=== PATIENT | female | born 1935 | race Caucasian/White ===

== ENCOUNTER 2016-12-05 11:18 | Inpatient (IN) | payer OTHER, BC ==
[~2016-12-05] VITALS: Ht 177.8 cm; Wt 67.6 kg
[~2016-12-05 11:18] MED LIST: ASPIRIN81 M1 PO; CIPRO500 MG PO; COREG3.125 MG PO; FLORASTOR250 MG PO; LIPITOR40 MG PO; MULTIVITAMIN1 TA1 PO; PLAVIX75 MG PO; ROCEPHIN 11000 MG/50 IV; ULTRAM50 MG
--- NOTE | 2016-12-05 11:18 | NUR ---
Pt BIBA to bed 7 at this time.
--- NOTE | 2016-12-05 11:20 | NUR ---
Patient being evaluated at bedside by Dr. Deluna at this time.
[2016-12-05 11:23] VITALS: BP 147/82
--- NOTE | 2016-12-05 11:33 | NUR ---
Pt taken for CT via [facility] at this time.
--- NOTE | 2016-12-05 11:38 | NUR ---
81 YO FEMALE BIBA FROM [facility], FOR ALTERED LOC AND FOUL SMELLING URINE. DENIES N/V/D; SKIN IS PINK/WARM/DRY; AAOX3-4, PERIODS OF FORGETFULNESS/CONFUSION; DIMINISHED BREATHSOUNDS TO BILATERAL BASES; HR EVEN AND REGULAR; PT DENIES ANY FEVER, CP, SOB, OR COUGH AT THIS TIME; PATIENT DENIES PAIN AT THIS TIME; VSS; PATIENT POSITIONED FOR COMFORT; HOB ELEVATED; BEDRAILS UP X2; BED DOWN. ER MD MADE AWARE OF PT STATUS.
[2016-12-05] MEDS ORDERED: NACL 0.9% 1,000 ML IV ONE (11:55)
--- NOTE | 2016-12-05 13:00 | NUR ---
16FR TAYLOR CATH INSERTED, PT TOLERATED WELL. 150CC DARK RED URINE DRAINED. ER MADE AWARE.
[2016-12-05] MEDS ORDERED: cefTRIAXone 1,000 MG VIAL ONE (13:32)
--- NOTE | 2016-12-05 14:24 | NUR ---
Patient will be admitted to care of DR SU. Admited to MS. Will go to [id number]. Belongings list completed. Report to CHEMA BELL.
[2016-12-05 15:00] VITALS: BP 116/66
--- NOTE | 2016-12-05 15:00 | NUR ---
ADMITTED 81 YEAR OLD FEMALE FROM ER VIA GURNEY WITH A DIAGNOSIS OF URINARY TRACT INFECTION, PT IS AAO X3 WITH FORGETFULNESS WITH DELAYED RESPONSE, ABLE TO FOLLOW SIMPLE COMMANDS, BLANCHABLE REDNESS ON SACRAL AREA OTHERWISE SKIN INTACT, VITALS STABLE, NO S/S OF RESPIRATORY DISTRESS OR DISCOMFORT NOTED, IV ON LEFT AC PATENT AND INTACT INFUSING FLUID WELL, TAYLOR CATHETER IN PLACE, ORIENTED PT IN THE ROOM AND USE OF CALL LIGHT, SAFETY/FALL/PRESSURE PRECAUTION ENFORCED, CALL LIGHT WITHIN REACH, WILL CONTINUE TO MONITOR.
--- NOTE | 2016-12-05 15:50 | NUR ---
WOUND CARE NURSE IS AT BEDSIDE EVALUATING THE PT.
[2016-12-05 16:00] VITALS: BP 106/58
--- NOTE | 2016-12-05 16:00 | NUR ---
WOUND CARE EVALUATION NOTES: REASON FOR EVALUATION: BLANCHABLE REDNESS SACRALCOCCYX COMPLETE SKIN ASSESSMENT DONE ON THIS 81 Y/O FEMALE PATIENT FROM [facility], WITH INITIAL DIAGNOSIS OF URINARY TRACT INFECTION. PAST MEDICAL HISTORY INCLUDE CVA WITH RIGHT SIDED WEAKNESS, HYPERTENSION AND CAD. ALL ABOVE INFORMATION WAS OBTAINED FROM THE ADMISSION H&P. LABS INCLUDE WBC 10.8, H/H 12.5/39, GLUCOSE 117, ALBUMIN 3.3, PT/INR 10.9/1.2, PTT 29.9. PATIENT IS AWAKE AND ABLE TO FOLLOW SIMPLE COMMAND. SKIN WARM TO TOUCH WNL, TOENAILS ARE DISCOLORED, NO EDEMA, NO HAIR GROWTH AND +2 BILATERAL PEDAL PULSES. URINE AND BOWEL INCONTINENT. NEEDS ASSISTANCE IN TURNING. INITIAL PLAN OF CARE AND PRESSURE PREVENTIVE MEASURES DISCUSSED, UNABLE TO VERBALIZE UNDERSTANDING. INTEGUMENTARY: LEFT UPPER BUTTOCK - ST II - 100% BROWN SCAB PERIAREA - RED AND MOIST DUE TO URINE AND BOWEL INCONTINENCE. RECOMMENDATIONS: -CLEANSE SACRALCOCCYX, PERIAREA AND LEFT BUTTOCK WITH MILD SOAP AND WATER, PAT DRY, APPLY Z GUARD BIDWC AND PRN WITH SOILING. LEAVE OPEN TO AIR -PAINT RIGHT HEEL WITH SKIN PREP WIPES BIDWC AND LEAVE OPEN TO AIR -TURN AND REPOSITION PATIENT Q2H TO LEFT AND RIGHT SIDE ONLY TO OFFLOAD SACRALCOCCYX -ASSESS AND MONITOR SKIN CONDITION DURING POSITION CHANGE, PLEASE PAY PARTICULAR ATTENTION TO SACRALCOCCYX, ELBOWS, EARS AND HEELS -OFFLOAD BILATERAL HEELS BY PLACING PILLOWS UNDER CALVES AT ALL TIMES, UNLESS OTHERWISE CONTRAINDICATED -PRESSURE REDITRIBUTION SURFACE THERAPY -KEEP SKIN CLEAN AND DRY AT ALL TIMES. RECOMMENDATIONS DISCUSSED WITH PRIMARY RN. WILL FOLLOW UP PATIENT Q 7H AND PRN. PLEASE CONTACT [facility] FOR ANY CONCERNS, QUESTIONS AND CHANGES IN SKIN CONDITION.
[2016-12-05] MEDS ORDERED: LORazepam 2 MG/ML VIAL IVP PRN (16:05)
[2016-12-05] MEDS ORDERED: ACETAMINOPHEN 325 MG TAB PO PRN (16:05)
[2016-12-05] MEDS ORDERED: ONDANSETRON 4 MG/2 ML VIAL IVP PRN (16:05)
[2016-12-05] MEDS ORDERED: Z-GUARD PASTE TP PRN (16:25)
[2016-12-05] MEDS: DEXT 5% /NACL 0.9% 1,000 ML IV SCH (16:58)
--- NOTE | 2016-12-05 17:38 | NUR ---
FAMILY MEMBERS AT BEDSIDE, UPDATED PT CURRENT CONDITION, QUESTIONS ANSWERED. ALL NEEDS TEND TO PT AT THIS TIME, NO S/S OF RESPIRATORY DISTRESS OR DISCOMFORT NOTED, CALL LIGHT WITHIN REACH, WILL CONTINUE TO MONITOR.
--- NOTE | 2016-12-05 18:15 | NUR ---
TRANSFERRED PT TO WOUND CARE BED.
--- NOTE | 2016-12-05 19:04 | NUR ---
ENDORSED PT TO ARABELLA ABRAMS FOR CONTINUITY OF CARE. PT IS STABLE AT THIS TIME.
--- NOTE | 2016-12-05 19:10 | NUR ---
RECEIVED FROM AM RN IN BED. 81 YEAR OLD FEMALE DX. OF UTI AND RESIDING IN [facility]. AFEBRILE. CALL LIGHT WITH IN REACH. NO SOB. NO RESTLESSNESS NOTED. NEEDS WILL BE ANTICIPATED AND MET. TAYLOR CATHETER IN PLACE WITH URINE DRAINING WELL. IVF SITE TO LAC#20 INTACT AND NO INFILTRATION NOTED.
[2016-12-05 20:32] VITALS: BP 102/64
[2016-12-05] MEDS: ATORVASTATIN 20 MG TAB PO SCH (20:36)
[2016-12-05] MEDS: CARVEDILOL 3.125 MG TAB PO SCH (20:36)
--- NOTE | 2016-12-05 22:00 | NUR ---
PT. TURNED TO SIDES Q 2H. TOTAL CARE. AFEBRILE. NO RESTLESSNESS NOTED. DX. UTI . TAYLOR CATHETER DRAINING WELL WITH DARK URINE. AFEBRILE.
--- NOTE | 2016-12-06 00:13 | NUR ---
PT. TURNED . AWAKE AND ALERT AT THIS TIME. SAYS WORDS THAT ARE NOT UNDERSTOOD. NEEDS ANTICIPATED AND MET. IVF SITE CHECKED. WITH GOOD BLOOD RETURN.
[2016-12-06 00:16] VITALS: BP 99/58
[2016-12-06] MEDS: Z-GUARD PASTE TP SCH ×2 (01:36→13:00)
[2016-12-06] MEDS: DEXT 5% /NACL 0.9% 1,000 ML IV SCH ×3 (02:05→21:55)
--- NOTE | 2016-12-06 03:37 | NUR ---
PT. AT THIS TIME SLEEPING . NO RESTLESSNESS. CALL LIGHT WITH IN REACH. NEEDS ANTICIPATED AND WILL BE MET. TURNED TO SIDES Q 2H AND WITH PILLOW SUPPORT TO PRESSURE AREAS.
--- NOTE | 2016-12-06 06:12 | NUR ---
PT. SLEEPING WELL. NO SOB. FLACC 0-. TAYLOR CATHETER DRAINING WELL WITH DARK YELLOW URINE.
--- NOTE | 2016-12-06 07:30 | NUR ---
RECEIVED REPORT FROM THE ALGEBRA TEACHER NURSE JOSE ALBERTO AT BEDSIDE FOR CONTINUITY OF CARE. PATIENT IS AWAKE, ALERT, AND ORIENTED X3. INATAL ASSESSMENT DONE. DELAYED RESPONSE, FOLLOW SIMPLE COMMANDS.PATIENT HAS BLANCHABLE REDNESS ON SACRAL AREA BUT OTHERWISE SKIN INTACT, VITALS TAKEN AND WITHIN THE NORMAL LIMIT,ON ROOM AIR NO S/S OF RESPIRATORY DISTRESS OR DISCOMFORT NOTED, IV ON LEFT AC PATENT AND INTACT INFUSING FLUID WELL, TAYLOR CATHETER IN PLACE DRAINING WELL WITH BROWN DOWN URINE. SAFETY CHECKED DONE AND WILL CONTINUE TO MONITOR. CALL LIGHT WITHIN REACH.
--- NOTE | 2016-12-06 07:47 | NUR ---
PATIENT HAS BEEN SCREENED AND CATEGORIZED HIGH NUTRITION RISK. PATIENT WILL BE SEEN WITHIN 1-2 DAYS OF ADMISSION. 12/06/16-12/07/[address]
[2016-12-06 08:04] VITALS: BP 111/67
[2016-12-06] MEDS: ASPIRIN 81 MG TAB.CHEW PO SCH (08:54)
[2016-12-06] MEDS: MULTIVITAMIN 1 TAB PO SCH (08:54)
[2016-12-06] MEDS: CARVEDILOL 3.125 MG TAB PO SCH ×2 (08:54→20:31)
[2016-12-06] MEDS: CLOPIDOGREL 75 MG TAB PO SCH (08:54)
--- NOTE | 2016-12-06 09:00 | NUR ---
DUE MEDS GIVE. PATIENT TOLERATED WELL. WILL CONTINUE TO MONITOR. CALL LIGHT WITHIN REACH.
--- NOTE | 2016-12-06 11:08 | NUR ---
SS NOTE: PER PAUL FROM [facility], NO RESIDENTIAL BEDS AVAILABLE PER PRINCE FROM [facility], NO RESIDENTIAL BEDS AVAILABLE I SPOKE WITH PT'S SON-IN-LAW, SANTI (PT'S DTR, DIDIER'S ). HE STATED THAT HE SPOKE WITH ISRAEL FROM [facility] ([phone]) AND WAS INFORMED THAT THEY WILL HAVE A LIQUEFIER BED AT THE BEGINNING OF NEXT WEEK. I SPOKE WITH ISRAEL FROM [facility] AND SHE STATED THAT SHE NEVER TOLD PT'S FAMILY THAT THEY WILL HAVE A RESIDENTIAL BED. SHE ALSO STATED THAT THEY ARE UNABLE TO TAKE PT IF PT'S MANAGED MEDICARE IS NOT CONTRACTED WITH THEIR FACILITY. Addendum: 12/06/16 at 1212 by Kiara Nelson SS ERROR - PLEASE DISREGARD THIS NOTE
--- NOTE | 2016-12-06 11:31 | NUR ---
SS NOTE: PER NATI FROM [facility] ([phone]), THEY MAY BE ABLE TO ACCEPT PT BUT WOULD HAVE TO SPEAK WITH PT'S FAMILY FIRST. I SPOKE WITH PT'S DTR, DIDIER AND INFORMED HER OF THE ABOVE INFORMATION. Addendum: 12/06/16 at 1212 by Kiara Nelson SS ERROR - PLEASE DISREGARD THIS NOTE
--- NOTE | 2016-12-06 11:31 | NUR ---
SS NOTE: PER NATI FROM [facility] ([phone]), THEY MAY BE ABLE TO ACCEPT PT BUT WOULD HAVE TO SPEAK WITH PT'S FAMILY FIRST. I SPOKE WITH PT'S DTR, DIDIER AND INFORMED HER OF THE ABOVE INFORMATION. Addendum: 12/06/16 at 1212 by Kiara Nelson SS ERROR - PLEASE DISREGARD THIS NOTE
--- NOTE | 2016-12-06 12:00 | NUR ---
PATIENT EATING LUNCH, NO COMPLAINED OF ANY PAIN OR DISTRESS. WILL CONTINUE TO MONITOR. CALL LIGHT WITHIN REACH.
--- NOTE | 2016-12-06 13:00 | NUR ---
PATIENT IS AWAKE RESTING IN BED. NO S/S OF DISTRESS. CALL LIGHT WITHIN REACH.
--- NOTE | 2016-12-06 15:22 | NUR ---
PATIENT COMPLAINED OF LOWER BACK AND SHOULDER PAIN. PRN MED FOR PAIN WILL BE GIVEN.
[2016-12-06] MEDS: HYDROcodone/APAP 5/325 MG 1 TAB TAB PO PRN (15:33)
[2016-12-06 15:57] VITALS: BP 119/57
--- NOTE | 2016-12-06 16:06 | NUR ---
VITALS TAKEN AND WITHIN THE NORMAL LIMIT. WILL CONTINUE TO MONITOR. CALL LIGHT WITHIN REACH.
--- NOTE | 2016-12-06 19:13 | NUR ---
REPORT GIVEN TO PHOTOLETTERING MACHINE OPERATOR NURSE JUN FOR CONTINUITY OF CARE. PATIENT IS AWAKE AND ALERT, IN STABLE CONDITION. ALL NEEDS MET AT THIS TIME
--- NOTE | 2016-12-06 19:15 | NUR ---
PT IS CURRENTLY AWAKE RESTING IN WOUND CARE BED.IVF INFUSING WELL IV SITE CURRENTLY PATENT NO INFILTRATION NOTED,PT DENIES PAIN,CONTINUES TO BE TURNED AND REPOSITIONED BY ASAEL GANT AND ASAEL WAYNE.PT HAS A TAYLOR CATHETER TO GRAVITY DRAINING BLOODY URINE.SCD'S TO BOTH LOWER EXTREMITIES IN PLACE.WILL CONTINUE TO MONITOR.CALL LIGHT AND FREQUENT VISUAL CHECKS WILL BE DONE.
--- NOTE | 2016-12-06 20:00 | NUR ---
Patient's Plan of Care was discussed and reviewed with SPECIALTY FOODS COOK: NORTH Kennedy
[2016-12-06 20:19] VITALS: BP 102/55
[2016-12-06] MEDS: ATORVASTATIN 20 MG TAB PO SCH (20:34)
--- NOTE | 2016-12-06 22:57 | NUR ---
PT IS CURRENTLY RESTING IN BED,IVF INFUSING WELL IV SITE PATENT WILL CONTINUE TO MONITOR.CALL LIGHT WITHIN REACH.
--- NOTE | 2016-12-06 23:45 | NUR ---
PT KEEPS BENDING HER ARM AND IV KEEPS BEEPING,I FLUSH HER IV SITE TO LT AC G#20 AND IT FLUSHES WELL AND THERE IS STILL GOOD BLOOD RETURN BUT, IV CONTINUES TO BEEP.I RESTARTED A NEW IV TO HER LT ARM G#22 AT FIRST ATTEMPT WITH GOOD BLOOD RETURN PT TOLERATED PROCEDURE WELL. WILL CONTINUE TO MONITOR.CALL LIGHT WITHIN REACH WILL CONTINUE TO MONITOR.
[2016-12-07 00:05] VITALS: BP 119/73
[2016-12-07] MEDS: Z-GUARD PASTE TP SCH ×2 (01:35→12:12)
--- NOTE | 2016-12-07 02:28 | NUR ---
PT SLEEPING IN BED IN NO DISTRESS,IVF INFUSING WELL.CALL LIGHT WITHIN REACH.
--- NOTE | 2016-12-07 03:47 | NUR ---
PT STABLE SLEEPING IN BED,NO DISTRESS WILL CONTINUE TO MONITOR.
--- NOTE | 2016-12-07 06:26 | NUR ---
PT STABLE RESTING IN BED IN NO DISTRESS WILL CONTINUE TO MONITOR.CALL LIGHT WITHIN REACH.
--- NOTE | 2016-12-07 07:25 | NUR ---
PT STABLE REPORT ENDORSED AT BEDSIDE RN CHUCKIE WILL RESUME CARE OF THE PATIENT.
--- NOTE | 2016-12-07 07:27 | NUR ---
RECEIVED REPORT FROM MATTRESS FINISHER NURSE. PT IS AAOX3 WITH DELAYED RESPONSE, DENIES PAIN/DISCOMFORT AT THIS TIME. WOUND TO LEFT BUTTOCK NOTED. IV PATENT AND FLOWING. TAYLOR IS FLOWING VIA GRAVITY, ARABELLA IN COLOR. PT IS ON ROOM AIR, VITALS STABLE. CALL LIGHT WITHIN REACH. WILL CONTINUE TO MONITOR.
[2016-12-07 08:00] VITALS: BP 126/80
[2016-12-07] MEDS: CLOPIDOGREL 75 MG TAB PO SCH (08:49)
[2016-12-07] MEDS: ASPIRIN 81 MG TAB.CHEW PO SCH (08:51)
[2016-12-07] MEDS: DEXT 5% /NACL 0.9% 1,000 ML IV SCH ×2 (08:51→18:05)
[2016-12-07] MEDS: CARVEDILOL 3.125 MG TAB PO SCH ×2 (08:52→21:05)
--- NOTE | 2016-12-07 09:02 | NUR ---
PT JAYRO MEDS WELL.
[2016-12-07] MEDS: MULTIVITAMIN 1 TAB PO SCH (09:29)
[2016-12-07] MEDS: HYDROcodone/APAP 5/325 MG 1 TAB TAB PO PRN (09:47)
--- NOTE | 2016-12-07 09:51 | NUR ---
PT C/O PAIN, MEDICATED PRESCRIBED.
--- NOTE | 2016-12-07 11:36 | NUR ---
FAMILY AT BEDSIDE, ALL NEEDS MET AT THIS TIME.
--- NOTE | 2016-12-07 13:33 | NUR ---
RECEIVED CALL FROM LAB - URINE CULTURE - MDRO IN URINE, AWARE.
--- NOTE | 2016-12-07 14:41 | NUR ---
12/07/16 RD INITIAL ASSESSMENT COMPLETED. PLEASE REFER TO NUTRITION ASSESSMENT UNDER CARE ACTIVITY FOR ESTIMATED NUTRITIONAL NEEDS. RD RECOMMENDATIONS: 1- RECOMMEND CONTINUE 2G NA DIET 2- WILL AD [facility] TID WITH MEALS WITH CONTINUED POOR PO INTAKE 3- RD WILL FOLLOW UP 2-3 DAYS; HIGH RISK KEVIN TRACEY; JAISON,RD
--- NOTE | 2016-12-07 15:58 | NUR ---
NO S/SX OF DISTRESS NOTED. VSS REMAIN STABLE.
[2016-12-07 16:00] VITALS: BP 105/69
--- NOTE | 2016-12-07 17:58 | NUR ---
ALL NEEDS MET AT THIS TIME.
--- NOTE | 2016-12-07 19:14 | NUR ---
ENDORSED TO TREE CLIMBER NURSE IN STABLE CONDITION
--- NOTE | 2016-12-07 19:20 | NUR ---
PT IS CURRENTLY AWAKE WITH DELAYED RESPONSE,RESTING IN BED,IVF INFUSING WELL IV SITE CURRENTLY PATENT NO INFILTRATION NOTED AT THIS TIME.PT IS RESTING IN BED NO PAIN OR DISCOMFORT NOTED,TAYLOR CATHETER TO GRAVITY,FALL PREC IMPLEMENTED AND CALL LIGHT WITHIN REACH.WILL CONTINUE TO OBSERVE.
[2016-12-07 20:00] VITALS: BP 118/71
--- NOTE | 2016-12-07 20:00 | NUR ---
Patient's Plan of Care was discussed and reviewed with ROUND CUTTER OPERATOR: NORTH.
[2016-12-07] MEDS: ATORVASTATIN 20 MG TAB PO SCH (21:05)
--- NOTE | 2016-12-07 21:05 | NUR ---
PT RECEIVED HER ROUTINE MEDICATIONS TONIGHT AND TOOK THEM WITH SOME CHOCOLATE PUDDING AND WAS ABLE TO SWALLOW WATER WELL.IVF INFUSING WELL,IV SITE PATENT WILL CONTINUE TO MONITOR.
--- NOTE | 2016-12-08 00:05 | NUR ---
PT STABLE WAS TURNED AND REPOSITIONED PATIENT WAS CLEANED,NO PAIN OR DISCOMFORT NOTED AT THIS TIME,WILL CONTINUE TO MONITOR.
[2016-12-08 00:14] VITALS: BP 120/71
[2016-12-08] MEDS: Z-GUARD PASTE TP SCH ×2 (01:40→13:26)
--- NOTE | 2016-12-08 02:13 | NUR ---
PT IS CURRENTLY SLEEPING WELL IN BED IN NO DISTRESS WILL CONTINUE TO MONITOR.
--- NOTE | 2016-12-08 04:20 | NUR ---
PT IS CURRENTLY STABLE SLEEPING IN BED WILL CONTINUE TO MONITOR.
[2016-12-08] MEDS: DEXT 5% /NACL 0.9% 1,000 ML IV SCH ×2 (05:08→14:13)
--- NOTE | 2016-12-08 07:16 | NUR ---
PT RESTING IN BED AWAKE REPORT ENDORSED TO ARABELLA FLORES AT BEDSIDE.
--- NOTE | 2016-12-08 07:17 | NUR ---
RECEIVED REPORT FROM HOUSTON KAT. PT IS RESTING ON BED WATCHING TV, AAO X2-3, WITH DELAYED RESPONSE, ABLE TO FOLLOW SIMPLE COMMANDS, TAYLOR CATHETER IN PLACE DRAINING LIGHT ARABELLA URINE, IV ON LEFT AC PATENT AND INTACT INFUSING FLUID WELL, DRY SCAB TO LEFT BUTTOCK NOTED, INITIAL ASSESSMENT DONE, NO S/S OF RESPIRATORY DISTRESS OR DISCOMFORT NOTED, DISCUSSED PLAN OF CARE, SAFETY/FALL/PRESSURE ULCER PRECAUTION ENFORCED, CALL LIGHT WITHIN REACH, WILL CONTINUE TO MONITOR.
[2016-12-08 08:00] VITALS: BP 121/72
[2016-12-08] MEDS: CARVEDILOL 3.125 MG TAB PO SCH ×2 (09:00→21:31)
[2016-12-08] MEDS: ASPIRIN 81 MG TAB.CHEW PO SCH (09:06)
[2016-12-08] MEDS: CLOPIDOGREL 75 MG TAB PO SCH (09:07)
[2016-12-08 09:10] VITALS: BP 106/69
[2016-12-08] MEDS: MULTIVITAMIN 1 TAB PO SCH (09:16)
[2016-12-08] MEDS ORDERED: POTASSIUM CHLORIDE 10 MEQ TABER PO SCH (09:30)
--- NOTE | 2016-12-08 11:35 | NUR ---
CLEANED AND REPOSITIONED PT, PT TOLERATED WELL, NO S/S OF RESPIRATORY DISTRESS OR DISCOMFORT NOTED, CALL LIGHT WITHIN REACH, WILL CONTINUE TO MONITOR.
[2016-12-08 12:00] VITALS: BP 111/63
--- NOTE | 2016-12-08 13:14 | NUR ---
PT IS RESTING ON BED WATCHING TV, NO S/S OF RESPIRATORY DISTRESS OR DISCOMFORT NOTED, KEPT CLEAN AND DRY, ALL NEEDS MET AT THIS TIME, CALL LIGHT WITHIN REACH, WILL CONTINUE TO MONITOR.
--- NOTE | 2016-12-08 15:41 | NUR ---
PT IS SLEEPING BUT EASILY AWAKEN, NO S/S OF RESPIRATORY DISTRESS, CALL LIGHT WITHIN REACH. WILL CONTINUE TO MONITOR.
[2016-12-08 16:00] VITALS: BP 115/67
--- NOTE | 2016-12-08 17:45 | NUR ---
DINNER SERVED PT HAS POOR APPETITE, NO S/S OF RESPIRATORY DISTRESS OR DISCOMFORT NOTED, ALL NEEDS MET AT THIS TIME, CALL LIGHT WITHIN REACH, WILL CONTINUE TO MONITOR.
--- NOTE | 2016-12-08 19:05 | NUR ---
ENDORSED PT TO LVN. MIGUE FOR CONTINUED CARE. PT STABLE AT THIS TIME.
--- NOTE | 2016-12-08 19:06 | NUR ---
RECD. RESTING IN BED, AWAKE, A/OX 1, DELAYED RESPONSE TO QUESTIONS, HARDLY AUDIBLE VOICE. RESPIRATION EVEN AND UNLABORED. IV OF D5NS AT 100 ML/HR INFUSING LEFT FOREARM G 22. WITH F/C PATENT DRAINING YELLOW URINE. ON BILATERAL LEG SEQUENTIALS. BLE WITH PITTING EDEMA 2-3+, ELEVATED ON PILLOWS. PLAN OF CARE FOR THE SHIFT DISCUSSED. NEEDS REINFORCEMENT. DENIES PAIN 0/10.
--- NOTE | 2016-12-08 19:49 | NUR ---
Patient's Plan of Care was discussed and reviewed with PACKAGE DYE STAND LOADER: MIGUE BARNARD
[2016-12-08 20:00] VITALS: BP 116/67
[2016-12-08] MEDS: ATORVASTATIN 20 MG TAB PO SCH (21:32)
--- NOTE | 2016-12-08 21:32 | NUR ---
DUE PO MEDICATIONS GIVEN, TOLERATED WELL.
--- NOTE | 2016-12-08 22:30 | NUR ---
STILL AWAKE, INQUIRED IF SHE WANTS TO WATCH TV, REFUSED. CALL LIGHT GIVEN, INSTRUCTED TO USE CALL LIGHT WHEN NEEDING HELP. VERBALIZED UNDERSTANDING.
[2016-12-09] MEDS: DEXT 5% /NACL 0.9% 1,000 ML IV SCH ×3 (00:05→09:12)
--- NOTE | 2016-12-09 01:15 | NUR ---
STILL AWAKE IN BED, INQUIRED IF SHE HAS PAIN, VERBALIZED THAT SHE HAS SHOULDER PAIN, 05/29. WILL MEDICATE ORDERED.
[2016-12-09] MEDS: HYDROcodone/APAP 5/325 MG 1 TAB TAB PO PRN (01:17)
[2016-12-09] MEDS: Z-GUARD PASTE TP SCH ×2 (01:18→12:11)
--- NOTE | 2016-12-09 02:20 | NUR ---
SLEEPING COMFORTABLY IN BED.
--- NOTE | 2016-12-09 06:35 | NUR ---
AWAKE IN BED, NO COMPLAINT OF PAIN 0/10. ENCOURAGED TO GO BACK TO SLEEP. CONDITION REMAIN STABLE. WILL ENDORSE TO AM NURSE FOR CONTINUITY OF CARE.
--- NOTE | 2016-12-09 07:15 | NUR ---
ENDORSED TO ARABELLA DIAZ FOR CONTINUITY OF CARE.
--- NOTE | 2016-12-09 07:16 | NUR ---
RECEIVED REPORT FROM THE ENVIRONMENT FRIENDLY LANDSCAPE DESIGNER NURSE AT BEDSIDE. PT IS ALERT AND AWAKE. I INTRODUCED MYSELF AND UPDATED THE BOARD. NOTED THE TAYLOR CATH, YELLOW URINE IN THE BAG-50ML. PT SCD'S ARE INTACT. IV ON HER L FA AT 22G DENS @ 100ML/HR. PT HAS NO COMPLAINTS AT THIS TIME. WILL BE BACK TO CONTINUE ASSESSMENT. ALL SAFETY MEASURES IN PLACE.
[2016-12-09 08:00] VITALS: BP 131/74
--- NOTE | 2016-12-09 08:10 | NUR ---
PT'S V/S ARE WITHIN NORMAL LIMITS. PT IS EATING HER BREAKFAST. PT HAS NO COMPLAINTS. WILL CONTINUE TO MONITOR.
[2016-12-09] MEDS: ASPIRIN 81 MG TAB.CHEW PO SCH (09:09)
[2016-12-09] MEDS: CARVEDILOL 3.125 MG TAB PO SCH (09:09)
[2016-12-09] MEDS: CLOPIDOGREL 75 MG TAB PO SCH (09:10)
--- NOTE | 2016-12-09 09:10 | NUR ---
ADMINISTERED MORNING MEDS. PT TOLERATED THEM WELL. NO SIGNS OF DISTRESS. ALL SAFETY MEASURES IN PLACE. WILL CONTINUE TO MONITOR PT.
[2016-12-09] MEDS: MULTIVITAMIN 1 TAB PO SCH (09:11)
--- NOTE | 2016-12-09 10:00 | NUR ---
IV PUMP BEEPING. WENT TO CHECK ON IV. FLUSHED IV LINE. PT TOLERATED WELL. NOW FLOWING FINE. WILL CONTINUE TO MONITOR.
--- NOTE | 2016-12-09 11:28 | NUR ---
IV PUMP BEEPING. FLUSHED LINE. CHECKED ALL LINES. ALL OPEN. FLOWING NICELY. WILL CONTINUE TO MONITOR PT.
--- NOTE | 2016-12-09 11:46 | NUR ---
SS NOTE: MESSAGE LEFT FOR PT'S SONCHESTER REGARDING SNF PLACEMENT FOR IV ABX MESSAGE LEFT FOR PT'S DTRSTEW REGARDING SNF PLACEMENT FOR IV ABX
--- NOTE | 2016-12-09 12:10 | NUR ---
SS NOTE: I RECEIVED A CALL FROM PT'S SON, CHESTER AND HE STATED THAT HE WOULD LIKE TO TRY A SNF IN THE [facility] FOR PT.
--- NOTE | 2016-12-09 12:12 | NUR ---
PT RESTING COMFORTABLY. PT IV INFUSING WELL. ALL SAFETY MEASURES IN PLACE. WILL CONTINUE TO MONITOR PT.
--- NOTE | 2016-12-09 12:49 | NUR ---
PT EATING HER LUNCH. NO SIGNS OF DISTRESS. NO COMPLAINTS AT THIS TIME. WILL CONTINUE TO MONITOR PT.
--- NOTE | 2016-12-09 13:18 | NUR ---
SS NOTE: PER RICK FROM [facility] ([phone]), PT CAN GO TO ROOM 32B ANYTIME AFTER [address] Yue SU. ALEXUS SARMIENTO AND BUGGY RUNNERARABELLA FELICIANO.
--- NOTE | 2016-12-09 14:01 | NUR ---
SS NOTE: MESSAGE LEFT FOR PT'S DTRSTEW REGARDING PT'[place] [facility] I SPOKE WITH PT'S SON, CHESTER REGARDING PT'S ACCEPTANCE AT [facility] AND PROVIDED HIM WITH THEIR CONTACT INFORMATION. HE ALSO STATED THAT [facility] CAN CONTACT HIM FOR PAYMENT ARRANGEMENTS.
--- NOTE | 2016-12-09 14:37 | NUR ---
CALLED [facility] AND SET UP GURNEY TRANSPORT FOR 5P.M. TODAY. THE SON WILL PAY FOR TRANSPORT. JOE BELL AWARE.
--- NOTE | 2016-12-09 14:40 | NUR ---
TORSTEN CALLED. PT WILL BE GOING TO [facility] AT 5 PM. WILL CALL OVER TO GIVE REPORT.
--- NOTE | 2016-12-09 15:00 | NUR ---
GAVE REPORT TO KIERAN AT [facility] AT [phone]. SHE IS GOING TO RM 32B. WILL START WITH DISCHARGE PAPERWORK. WILL HAVE HER READY TO LEAVE BY 5PM AND AWAIT THE TRANSPORTATION.
[2016-12-09 16:00] VITALS: BP 115/73
[2016-12-09] MEDS ORDERED: ROCEPHIN2 GM IV (16:03)
--- NOTE | 2016-12-09 16:30 | NUR ---
CHANGED PT TO PINK GOWN. REMOVED ALL WRIST BANDS. LEAVING THE IV INTACT FOR ABX TX AT [facility]. CLAUDIA IN PLACE. ALL DC PAPERWORK IN PROCESS. V/S STABLE. WAITING ON TRANSPORTATION.
--- NOTE | 2016-12-09 17:10 | NUR ---
E CAME TO TRANSPORT PATIENT. GATHERED ALL HER BELONGINGS. DAUGHTER AT BEDSIDE. PT IN STABLE CONDITION. IV INTACT SL. TAYLOR INTACT. DAUGHTER SIGNED ALL THE DC PAPERWORK.
[2017-05-09] MEDS ORDERED: MECLIZINE HYDRO25 M2 PO (14:05)
[2017-05-09] MEDS ORDERED: LEVAQUIN500 M1 PO (14:05)
== END 2016-12-09 17:10 | DRG 871 ==
LOC: MED 11:21 → MTU 14:35
PROVIDERS: ADMIT Preventive Medicine Preventive Medicine/Occupational Environmental Medicine; ATTEND Preventive Medicine Preventive Medicine/Occupational Environmental Medicine
DX: A41.9 Sepsis, unspecified organism (principal); G93.41 Metabolic encephalopathy; N39.0 Urinary tract infection, site not specified; I69.351 Hemiplegia and hemiparesis following cerebral infarction affecting right dominant side; I25.10 Atherosclerotic heart disease of native coronary artery without angina pectoris; Z66 Do not resuscitate; I10 Essential (primary) hypertension; E78.5 Hyperlipidemia, unspecified; B96.89 Other specified bacterial agents as the cause of diseases classified elsewhere; R31.9 Hematuria, unspecified; J45.909 Unspecified asthma, uncomplicated; Z16.24 Resistance to multiple antibiotics; Z90.710 Acquired absence of both cervix and uterus; Z79.82 Long term (current) use of aspirin; Z79.899 Other long term (current) drug therapy

== ENCOUNTER 2017-03-07 17:46 | Inpatient (IN) | payer OTHER, BC ==
[~2017-03-07] VITALS: Ht 175.3 cm; Wt 63.5 kg
[~2017-03-07 17:46] MED LIST changes: +ROCEPHIN2 GM IV
--- NOTE | 2017-03-07 17:46 | NUR ---
Patient REE DENNISON from [facility], transferred to bed 5. RN evaluating patient at bedside.
[2017-03-07] MEDS ORDERED: NACL 0.9% 1,000 ML IV SCH (17:57)
--- NOTE | 2017-03-07 17:58 | NUR ---
PATIENT BIBLindsay FROM [facility], S/P DISCHARGED FROM [facility] FROM UTI. PER INSULATION BOARD HEAD SAW OPERATOR HAPPINESS, STS PT C/O DIFFUSE PAIN AND WAS CLEANING PT AND NOTICED BLOOD IN DIAPER. PT HAS COPIOUS AMOUNT OF BRIGHT RED CLOTS IN DIAPER. DIAPER IS SATURATED. CAP REFILL <3SECS. PT TACHYCARDIC WITH LOWER GRADE FEVER. HX CVA, CAD, HTN.SKIN IS PINK/WARM/DRY;LUNGS CLEAR BILATERAL; PAIN SCALE OF 6/10 AT THIS TIME;PATIENT POSITIONED FOR COMFORT; HOB ELEVATED; BEDRAILS UP X2; BED DOWN. ER MD MADE AWARE OF PT STATUS.
[2017-03-07 17:59] VITALS: BP 151/90
--- NOTE | 2017-03-07 18:56 | NUR ---
PT LYING ON BED;DAUGHTER AT BEDSIDE;NO ACUTE DISTRESS NOTE;WILL CONTINUE TO MONITOR PT.
--- NOTE | 2017-03-07 19:20 | NUR ---
Pt report given to ARABELLA Hernandes. Transfer of care at this time.
--- NOTE | 2017-03-07 19:45 | NUR ---
FEMALE CHAPERONED FOR DR. CARDENAS DURING PATIENT EXAM
[2017-03-07] MEDS ORDERED: cefTRIAXone 1,000 MG VIAL ONE (20:04)
[2017-03-07] MEDS ORDERED: HYDROcodone/APAP 5/325 MG 1 TAB TAB PO PRN (20:40)
[2017-03-07] MEDS ORDERED: ACETAMINOPHEN 325 MG TAB PO PRN (20:40)
[2017-03-07] MEDS ORDERED: ONDANSETRON 4 MG/2 ML VIAL IVP PRN (20:40)
[2017-03-07] MEDS: NACL 0.9% 1,000 ML IV SCH (21:05)
--- NOTE | 2017-03-07 21:30 | NUR ---
Patient will be admitted to care of DR ESPINO. Admited to TELEMETRY. Will go to room 115. Belongings list completed. Report to JEANIE BELL.
--- NOTE | 2017-03-07 21:40 | NUR ---
Admitted from ER with chief complaint of VAGINAL BLEEDING, BLOOD IN THE URINE. An 81 y/o, Female, AAOX1 with confusion. Initial assessment done, no s/s of respiratory distress or SOB noted. No c/o pain or any discomfort at this time. On zapata catheter, draining well with bloody urine. Plan of care reviewed to pt but unable to comprehend. Oriented to call light, bed, phone,television, bathroom, smoking policy, visiting hours, procedures, ID bracelet on. Belongings list checked. Call light within reach. Will continue to monitor.
[2017-03-08] VITALS: BP 98/55
--- NOTE | 2017-03-08 00:35 | NUR ---
ROUTINE ROUNDS MADE, PT SOUND ASLEEP AT THIS TIME BUT EASILY AROUSABLE. BREATHING PATTERN REGULAR. NO S/S RESPIRATORY DISTRESS. NO FACIAL GRIMACING OR MOANING INDICATING PAIN. WILL CONTINUE TO MONITOR.
[2017-03-08 04:00] VITALS: BP 110/60
--- NOTE | 2017-03-08 06:48 | NUR ---
PATIENT HAS BEEN SCREENED AND CATEGORIZED HIGH NUTRITION RISK. PATIENT WILL BE SEEN WITHIN 1-2 DAYS OF ADMISSION. 03/08/17-03/09/17 FLAKO MEDRANO MS, RDN
--- NOTE | 2017-03-08 07:19 | NUR ---
PT AWAKE AT THIS TIME, SELECTIVELY MUTE. NO C/O PAIN, NO S/S RESPIRATORY DISTRESS. ENDORSED TO NEXT SHIFT FOR CONTINUITY OF CARE. PT IN STABLE CONDITION
--- NOTE | 2017-03-08 07:20 | NUR ---
PT ALERT AND RESPONSIVE X1. BREATHING EVENLY AND UNLABORED. NO SIGNS OF ACUTE DISTRESS. SKIN IS WARM AND DRY, OFFLOAD TO BONY PROMINENCE. NO EPISODES OF ANY NAUSEA OR VOMITING. TAYLOR CATHETER INTACT AND NOTED 50CC OF DARK ARABELLA URINE. FLACC 0. ALL NEEDS ATTENDED, SAFETY PRECAUTIONS MAINTAINED. CALL LIGHT WITHIN REACH.
[2017-03-08 08:00] VITALS: BP 107/61
[2017-03-08] MEDS: CARVEDILOL 3.125 MG TAB PO SCH ×2 (08:27→20:54)
[2017-03-08] MEDS: MULTIVITAMIN 1 TAB PO SCH (08:27)
[2017-03-08] MEDS ORDERED: CLOPIDOGREL 75 MG TAB PO SCH (09:00)
[2017-03-08] MEDS ORDERED: ASPIRIN 81 MG TAB.CHEW PO SCH (09:00)
--- NOTE | 2017-03-08 10:44 | NUR ---
03/08/17 RD INITIAL ASSESSMENT COMPLETED PLEASE REFER TO NUTRITION ASSESSMENT UNDER CARE ACTIVITY FOR ESTIMATED NUTRITIONAL NEEDS. RD RECOMMENDATIONS: 1. CONTINUE ON NPO MEDICALLY APPROPRIATE. 2. CONSIDER INITIATING NUTRITION WHEN APPROPRIATE; CONSULT RDN PRN. 3. RD WILL F/U 2-3 DAYS; HIGH RISK. FLAKO MEDRANO MS, RDN
--- NOTE | 2017-03-08 11:37 | NUR ---
RECEIVED NEW ORDERS FROM Velvet LUU NOTED AND CARRIED OUT.
[2017-03-08 12:00] VITALS: BP 101/56
--- NOTE | 2017-03-08 12:34 | NUR ---
AM LAB ORDERS RECEIVED FROM DR. GROVE. NOTED AND CARRIED OUT.
[2017-03-08 16:00] VITALS: BP 116/70
[2017-03-08] MEDS: MORPHINE SULFATE 2 MG/ML SYR IVP PRN (16:13)
[2017-03-08] MEDS: NACL 0.9% 1,000 ML IV SCH (16:20)
[2017-03-08] MEDS: LORazepam 2 MG/ML VIAL IVP PRN (17:03)
--- NOTE | 2017-03-08 18:35 | NUR ---
CONTINUE WITH TAYLOR CATHETER IRRIGATION ORDERED. PT TOLERATING WELL. NOTED URINE LIGHT ARABELLA IN COLOR. CONTINUE TO MONITOR.
--- NOTE | 2017-03-08 18:42 | NUR ---
PT ALERT AND RESPONSIVE, NO SIGNS OF ACUTE DISTRESS. WILL ENDORSE TO ONCOMING SEARCH ENGINE MARKETING MANAGER NURSE FOR CONTINUITY OF CARE.
--- NOTE | 2017-03-08 19:30 | NUR ---
RECEIVED FROM AM RN IN BED SLEEPING. CALL LIGHT WITH IN REACH. TELEMETRY MONITORING. NO NOTED RESTLESSNESS. TOTAL CARE. DX. OF HEMATURIA. WITH NS IRRIGATION ON GOING RT HEMATURIA. ISOLATION PRECAUTION FOR MDRO URINE. WITH LFA#20 AND RIGHT HAND#[address] NO INFILTRATION NOTED. BED ALARM ON.
[2017-03-08 20:48] VITALS: BP 112/64
[2017-03-08] MEDS: ATORVASTATIN 20 MG TAB PO SCH (20:54)
[2017-03-09] VITALS: BP 101/57
--- NOTE | 2017-03-09 00:57 | NUR ---
PT. TURNED TO SIDES Q 2H. PILLOW SUPPORT TO PRESSURE AREAS. VERY MUCH AWAKE AT THIS TIME. FED WITH PUDDING RT REFUSED TO EAT EARLIER. PT. IRRIGATION TO BLADDER ORDERED CONTINUOS. NOTED OUT PUT IS NOW LIGHT BROWN IN COLOR. NO RESTLESSNESS . NEEDS ANTICIPATED AND WILL BE MET. IVF SITE TO LEFT FOREARM#20 INTACT AND NO INFILTRATION NOTED.
--- NOTE | 2017-03-09 01:09 | NUR ---
NS IRRIGATION 3000 ML X 2 BAGS INFUSING . NEEDS WILL BE ANTICIPATED AND MET.
[2017-03-09 04:42] VITALS: BP 102/68
--- NOTE | 2017-03-09 04:45 | NUR ---
PT.S IRRIGATION/BLADDER OUTPUT IS NOW COLORED YELLOW. NO NOTED HEMATURIA. CONTINUOS WITH IRRIGATION BLADDER STILL. TURNED TO SIDES Q 2H. TOTAL CARE.
--- NOTE | 2017-03-09 06:26 | NUR ---
NO RESTLESSNESS . SLEEPING WELL. TELEMETRY MONITORING.
--- NOTE | 2017-03-09 07:00 | NUR ---
PT ALERT AND RESPONSIVE X1 WITH PERIODS OF CONFUSION. BREATHING EVENLY AND UNLABORED. NO SIGNS OF ACUTE DISTRESS. SKIN IS WARM AND DRY, OFFLOAD TO PRESSURE AREAS. NO EPISODES OF ANY NAUSEA OR VOMITING. TAYLOR CATHETER INTACT AND NOTED 300CC OF YELLOW URINE, CONTINUE WITH IRRIGATION ORDERED. FLACC 0. ALL NEEDS ATTENDED, SAFETY PRECAUTIONS MAINTAINED. CALL LIGHT WITHIN REACH.
--- NOTE | 2017-03-09 07:30 | NUR ---
ENDORSED TO THE NEXT RN FOR CONTINUITY OF CARE. SLEEPING. WAKES UP WHEN TOUCHED. NO SOB. NO RESTLESSNESS NOTED. TOTAL CARE. NEEDS ANTICIPATED AND MET.
[2017-03-09 08:00] VITALS: BP 106/59
[2017-03-09] MEDS: CARVEDILOL 3.125 MG TAB PO SCH ×2 (08:14→20:17)
[2017-03-09] MEDS: MULTIVITAMIN 1 TAB PO SCH (08:15)
--- NOTE | 2017-03-09 09:00 | NUR ---
NOTED URINE ON FC TURNED TO CLEAR TEA COLORED. CONTINUE IRRIGATION AND MONITOR I AND O.
--- NOTE | 2017-03-09 11:33 | NUR ---
WAS SEEN BY DR. HERMOSILLO FOR UROLOGY CONSULT. RECEIVED ORDER FOR PELVIC US. NOTED AND CARRIED OUT.
--- NOTE | 2017-03-09 11:35 | NUR ---
DR HERMOSILLO'S ADDITIONAL ORDER, HOLD BLADDER IRRIGATION AT THIS TIME.
[2017-03-09] MEDS: MORPHINE SULFATE 2 MG/ML SYR IVP PRN (11:36)
[2017-03-09] MEDS: NACL 0.9% 1,000 ML IV SCH (11:41)
[2017-03-09 12:00] VITALS: BP 147/77
[2017-03-09] MEDS: LORazepam 2 MG/ML VIAL IVP PRN (13:18)
[2017-03-09] MEDS ORDERED: MAGNESIUM OXIDE 400 MG TAB PO SCH (14:20)
[2017-03-09 15:46] VITALS: BP 103/55
[2017-03-09] MEDS ORDERED: Z-GUARD PASTE TP ONE (16:05)
--- NOTE | 2017-03-09 17:26 | NUR ---
SPOKE WITH DR. HERMOSILLO AND US BLADDER IMAGES REPORTED. RECEIVED ORDER OBTAIN US BLADDER FOR FOLLOW UP TOMORROW. RESUME CONTINUED BLADDER IRRIGATION. NOTED AND CARRIED OUT.
--- NOTE | 2017-03-09 18:43 | NUR ---
PT ALERT AND RESPONSIVE, NO SIGNS OF ACUTE DISTRESS. WILL ENDORSE TO ONCOMING GEOPHYSICAL PROSPECTING SURVEYOR NURSE FOR CONTINUITY OF CARE.
--- NOTE | 2017-03-09 19:31 | NUR ---
RECEIVED FROM AM RN IN BED WITH NS BLADDER IRRIGATION STILL ON GOING WITH PINKISH TINGED OUTPUT. NEEDS WILL BE ANTICIPATED AND WILL BE MET. TOTAL CARE RT WITH CONFUSION. PT. ABLE TO VERBALIZE SIMPLE NEEDS . TELEMETRY MONITORING. AFEBRILE AND IVF SITE INTACT AND NO INFILTRATION NOTED. BED ALARM ON.
[2017-03-09 19:59] VITALS: BP 106/62
[2017-03-09] MEDS: ATORVASTATIN 20 MG TAB PO SCH (20:16)
--- NOTE | 2017-03-09 21:21 | NUR ---
PT. SLEEPING AT THIS TIME. NEEDS WILL BE ANTICIPATED AND MET. TOTAL CARE.
[2017-03-10] VITALS: BP 99/60
--- NOTE | 2017-03-10 | NUR ---
PT. TURNED TO SIDES BY COMPUTATIONAL PHYSICIST AND NURSE. TOLERATED WELL. AWAKE AT THIS TIME AND ENCOURAGED TO SLEEP. [address] NS BLADDER IRRIGATION CONTINUOS. WITH BROWNISH COLOR OUTPUT. ISOLATION PRECAUTIONS OBSERVED RT HX. MDRO URINE.
[2017-03-10] MEDS: Z-GUARD PASTE TP SCH ×2 (01:00→13:00)
--- NOTE | 2017-03-10 02:19 | NUR ---
TURNED TO SIDES . KEPT DRY AND CLEAN. NO SOB. DENIES PAIN.
--- NOTE | 2017-03-10 04:40 | NUR ---
TURNED TO SIDES BY CNAS . NO SOB. FLACC 0-. ABLE TO VERBALIZE SIMPLE NEEDS SLOWLY.
[2017-03-10 04:57] VITALS: BP 106/59
--- NOTE | 2017-03-10 05:49 | NUR ---
PT. SLEEPING. OUTPUT OF IRRIGATION IS NOW YELLOW IN COLOR. NEEDS WERE ANTICIPATED AND MET. TOTAL CARE RT CONFUSION AND GENERALIZED WEAKNESS.
--- NOTE | 2017-03-10 07:30 | NUR ---
RECEIVED PT FROM SURGICAL SALES REPRESENTATIVE NURSE AT BEDSIDE. INTRODUCED OURSELVES AND UPDATED THE BOARD. PT IS AWAKE. PT A&OX2. PT HAS IV ON L F/A 20 G RUNNING NS @ 50ML/HR AND R WRIST 20 G SL. R HAND SLIGHTLY EDEMATOUS, ELEVATED ON PILLOW. PT HAS CONTINUOUS BLADDER IRRIGATION, EMPTIED 1300ML OF ORANGE-COLOR URINE FROM TAYLOR BAG. PT TOLERATING WELL, STATED SHE HAS NO PAIN OR OTHER COMPLAINTS. PT HAS SCDS ON. R RIGHT FINGER HAS A BAND-AID THAT HAS DRAINAGE. IT LOOKS LIKE A LITTLE CUT. CLEANED AND REPLACED WITH A NEW BAND AID. PT SEEMS COMFORTABLE. WILL CONTINUE TO MONITOR PT.
[2017-03-10 08:00] VITALS: BP 106/54
[2017-03-10] MEDS: NACL 0.9% 1,000 ML IV SCH (08:34)
[2017-03-10] MEDS: MULTIVITAMIN 1 TAB PO SCH (08:39)
[2017-03-10] MEDS: CARVEDILOL 3.125 MG TAB PO SCH ×2 (08:39→20:59)
--- NOTE | 2017-03-10 08:54 | NUR ---
PT ATE SOME BREAKFAST. ABOUT 30%. EMPTIED TAYLOR, CONTINUOUS IRRIGATION, 1500 ML OF CLEAR LIQUID. PT RESTING COMFORTABLY. WILL CONTINUE TO MONITOR PT.
--- NOTE | 2017-03-10 10:00 | NUR ---
EMPTIED 1500ML OF CLEAR LIQUID. PT IN NO DISTRESS. CALL LIGHT WITHIN REACH. WILL CONTINUE TO MONITOR.
--- NOTE | 2017-03-10 11:05 | NUR ---
PT'S URINE IN TAYLOR BAG IS PINK-TINGED. HUNG NEW BAGS OF IRRIGATION FLUID. PT IS IN NO DISTRESS, HAS NO COMPLAINTS. CALL LIGHT WITHIN REACH. WILL CONTINUE TO MONITOR.
[2017-03-10 12:00] VITALS: BP 112/60
--- NOTE | 2017-03-10 12:00 | NUR ---
SPOKE TO REGARDING PT'S OPEN SACRAL ULCER. WILL PUT IN ORDER FOR DRESSING CHANGE.
--- NOTE | 2017-03-10 13:00 | NUR ---
PERFORMED WOUND CARE ON PT'S SACRAL ULCER. CLEANED AND APPLIED FOAM DSG. PT TOLERATED WELL. WILL CONTINUE TO MONITOR.
--- NOTE | 2017-03-10 14:00 | NUR ---
DR. HERMOSILLO CALLED AND ORDERED BLADDER IRRIGATION TO CONTINUE UNTIL TOMORROW MORNING AT 6AM. AFTER REMOVING BLADDER IRRIGATION, INSERT A REGULAR TAYLOR 18-20 NEPALESE. WILL ENDORSE TO QA AUTOMATION DEVELOPER NURSE REGARDING ORDER.
--- NOTE | 2017-03-10 15:00 | NUR ---
JUANCARLOS CALLED REGARDING PT'S ORDER FOR BOOST PLUS. JUANCARLOS STATED THAT RENAL DIET PT CANNOT GET BOOST PLUS AND SHOULD BE GETTING NOVA SOURCE RENAL [address] WILL [address]AK TO [address] REGARDING THE ORDER.
[2017-03-10 16:00] VITALS: BP 106/61
[2017-03-10] MEDS ORDERED: MAGNESIUM OXIDE 400 MG TAB PO SCH (16:00)
--- NOTE | 2017-03-10 17:00 | NUR ---
PT SLEEPING IN BED. NO DISTRESS NOTED. CONTINUOUS IRRIGATION ONGOING. PT TOLERATED WELL. CLEAR URINE IN BAG. WILL CONTINUE TO MONITOR.
--- NOTE | 2017-03-10 19:15 | NUR ---
ENDORSED CARE OF PT TO CARE TRAINER NURSE. PT IN STABLE CONDITION.
--- NOTE | 2017-03-10 19:16 | NUR ---
RECEIVED REPORT FRO DAY SHIFT NURSE, PT IS ALERT AND AWAKE, ON TELE, DENIES PAIN. HAS NO S/S OF RESPIRATORY DISTRESS/DISCOMFORT NOTED. CONTINUOUS BLADDER IRRIGATION NOTED. IV SITE IS PATENT AND INTACT. PLAN OF CARE DISCUSSED, REENFORCEMENT NEEDED. SAFETY MEASURES CHECKED, CALL LIGHT WITHIN REACH. WILL CONTINUE TO MONITOR.
[2017-03-10 20:00] VITALS: BP 112/91
[2017-03-10] MEDS: ATORVASTATIN 20 MG TAB PO SCH (20:59)
--- NOTE | 2017-03-10 21:01 | NUR ---
DUE MEDS GIVEN. PROVIDED DRUG INFO, BENEFITS AND S/E, REENFORCEMENT NEEDED. PT TOLERATED MEDS WELL.
[2017-03-11] VITALS: BP 116/57
--- NOTE | 2017-03-11 | NUR ---
V/S CHECKED, SAFETY MEASURES CHECKED, CALL LIGHT WITHIN REACH. IV SITE IS PATENT AND INTACT.
[2017-03-11] MEDS: Z-GUARD PASTE TP SCH ×2 (01:04→12:54)
--- NOTE | 2017-03-11 02:00 | NUR ---
REPOSITIONED THE PT. NO S/S OF DISTRESS/DISCOMFORT. CALL LIGHT WITHIN REACH.
[2017-03-11 04:00] VITALS: BP 118/74
--- NOTE | 2017-03-11 05:07 | NUR ---
V/S CHECKED, STABLE. REPOSITIONED THE PT, NO DISTRESS NOTED. NO S/S OF RESPIRATORY DISTRESS/DISCOMFORT NOTED.
[2017-03-11] MEDS: NACL 0.9% 1,000 ML IV SCH (05:17)
--- NOTE | 2017-03-11 06:00 | NUR ---
DISCONTINUED [address] TAYLOR CATHETER BLADDER IRRIGATION AND INSERTED A REGULAR 18 NAMIBIAN TAYLOR CATHETER, PROVIDED EXPLANATION FOR INSERTION. PROPER PLACEMENT VERIFIED, URINE OUTPUT NOTED WITH CHARGE NURSE.
--- NOTE | 2017-03-11 07:20 | NUR ---
ENDORSED PT TO DAY SHIFT NURSE. PT IN STABLE CONDITION.
--- NOTE | 2017-03-11 07:20 | NUR ---
RECEIVED REPORT FROM NIGHT NURSE. PT IS AAOX2, ON ROOM AIR, IV TO LEFT FA 20G INFUSING WELL. SACRAL ULCER WITH DRESSING DRY INTACT, TAYLOR IN PLACE, SCDS IN PLACE. INITIAL ASSESSMENT COMPLETED. REVIEWED PLAN OF CARE WITH PT, PT VERBALIZED UNDERSTANDING, ALL SAFETY PRECAUTIONS MET. CALL LIGHT WITHIN REACH. WILL CONTINUE TO MONITOR.
[2017-03-11 08:00] VITALS: BP 118/65
[2017-03-11] MEDS ORDERED: FOAM DRESSING TP SCH (09:00)
[2017-03-11] MEDS ORDERED: THERAHONEY WOUND DRESSING TP SCH (09:00)
[2017-03-11] MEDS: CARVEDILOL 3.125 MG TAB PO SCH (09:28)
[2017-03-11] MEDS: MULTIVITAMIN 1 TAB PO SCH (09:28)
--- NOTE | 2017-03-11 09:32 | NUR ---
DUE MEDICATION GIVEN, PT TOLERATED WELL. ALL NEEDS MET. CALL LIGHT WITHIN REACH. WILL CONTINUE TO MONITOR.
--- NOTE | 2017-03-11 11:08 | NUR ---
SS NOTE: I SPOKE WITH PT'S SON, CHESTER REGARDING THE PHYSICIAN'S ORDER FOR SHORT TERM SNF PLACEMENT FOR IV ABX AND BLADDER TRAINING. HE STATED THAT HE IS IN AGREEMENT WITH PT GOING TO [facility] UPON DISCHARGE AND IS ALSO IN AGREEMENT WITH PAYING FOR GURNEY TRANSPORTATION.
--- NOTE | 2017-03-11 11:30 | NUR ---
CHECKED IN ON PT, NO S/S OF DISTRESS NOTED. FLACC-O. ALL NEEDS MET. CALL LIGHT WITHIN REACH. WILL CONTINUE TO MONITOR.
[2017-03-11 12:00] VITALS: BP 112/66
--- NOTE | 2017-03-11 12:33 | NUR ---
03/11/17 RD FOLLOW-UP ASSESSMENT COMPLETED PLEASE REFER TO NUTRITION ASSESSMENT UNDER CARE ACTIVITY FOR ESTIMATED NUTRITIONAL NEEDS. 1. RECOMMEND DIET CHANGE TO: 2 GM SODIUM DIET 2. CONTINUE ONS 3. RD TO FOLLOW-UP 2-3 DAYS; HIGH RISK MIS BYRD, [place]
--- NOTE | 2017-03-11 13:09 | NUR ---
SS NOTE: PER ROSEANN FROM [facility] [place] ([phone]), PT CAN GO TO ROOM 33B ANYTIME UNDER DR. Jovany STILL. ALEXUS FELICIANO.
--- NOTE | 2017-03-11 13:30 | NUR ---
CHECKED IN ON PT, PT IS CURRENTLY AWAKE. FLACC-0. ALL NEEDS MET. CALL LIGHT WITHIN REACH. WILL CONTINUE TO MONITOR.
--- NOTE | 2017-03-11 13:41 | NUR ---
CM NOTE SPOKE WITH ALICIA OF TO SET UP PATIENT'S TRANSPORT GOING TO [facility] RM [address] Jovany STILL AIR REDUCTION EQUIPMENT OPERATOR TIME 1700 TODAY, NUMBER TO CALL FOR REPORT AT [facility] PH# [phone]. PATIENT'S SON WILL PAY FOR [employer]. CHARGE NURSE ELICEO FELICIANO.
--- NOTE | 2017-03-11 14:39 | NUR ---
INFORMED PT'S SON CHESTER SHAFFER [phone] OF PT TRANSFERRING TO [facility] [place], HE VERBALIZED UNDERSTANDING
[2017-03-11 16:00] VITALS: BP 113/64
--- NOTE | 2017-03-11 16:10 | NUR ---
PT CURRENTLY SLEEPING. CALL LIGHT WITHIN REACH. WILL CONTINUE TO MONITOR.
[2017-03-11] MEDS ORDERED: BD LACTINEX1.4 MG PO (16:26)
[2017-03-11] MEDS ORDERED: CIPRO500 MG PO (16:26)
--- NOTE | 2017-03-11 16:44 | NUR ---
REPORT GIVEN [place] JENN [place] [facility] [place]
[2017-03-11] MEDS ORDERED: MAGNESIUM OXIDE 400 MG TAB PO SCH (17:00)
--- NOTE | 2017-03-11 17:00 | NUR ---
PT WAS PICKED UP BY , ALL BELONGING WITH PT. IV REMOVED TIP INTACT. ID REMOVED. DISCHARGE PACKET GIVEN TO TRANSPORTER. Addendum: 03/11/17 at 1801 by Carito Morfin RN PT UNABLE TO SIGNED DISCHARGE PAPER WORK
[2017-05-09] MEDS ORDERED: MECLIZINE HYDRO25 M2 PO (14:05)
[2017-05-09] MEDS ORDERED: LEVAQUIN500 M1 PO (14:05)
== END 2017-03-11 17:00 | DRG 689 ==
LOC: MED 17:46 → MTU 20:26
PROVIDERS: ADMIT Family Medicine; ATTEND Family Medicine
PROC: 3C1ZX8Z Irrigation of Indwelling Device using Irrigating Substance, External Approach (ICD-10-PCS; principal; 2017-03-11)
PROC: 0T9B70Z Drainage of Bladder with Drainage Device, Via Natural or Artificial Opening (ICD-10-PCS; 2017-03-11)
DX: N39.0 Urinary tract infection, site not specified (principal); N17.0 Acute kidney failure with tubular necrosis; E43 Unspecified severe protein-calorie malnutrition; D62 Acute posthemorrhagic anemia; I69.351 Hemiplegia and hemiparesis following cerebral infarction affecting right dominant side; I42.0 Dilated cardiomyopathy; I25.10 Atherosclerotic heart disease of native coronary artery without angina pectoris; E78.5 Hyperlipidemia, unspecified; Z66 Do not resuscitate; M19.90 Unspecified osteoarthritis, unspecified site; I11.0 Hypertensive heart disease with heart failure; I48.91 Unspecified atrial fibrillation; E83.42 Hypomagnesemia; E87.8 Other disorders of electrolyte and fluid balance, not elsewhere classified; B96.5 Pseudomonas (aeruginosa) (mallei) (pseudomallei) as the cause of diseases classified elsewhere; E11.9 Type 2 diabetes mellitus without complications; N20.0 Calculus of kidney; L89.151 Pressure ulcer of sacral region, stage 1; Z95.5 Presence of coronary angioplasty implant and graft; Z79.82 Long term (current) use of aspirin; Z79.899 Other long term (current) drug therapy; Z88.1 Allergy status to other antibiotic agents; Z74.01 Bed confinement status; Z68.20 Body mass index [BMI] 20.0-20.9, adult

== ENCOUNTER 2017-05-05 17:30 | Inpatient (IN) | payer OTHER, BC ==
[~2017-05-05] VITALS: Ht 170.2 cm; Wt 62.1 kg
[~2017-05-05 17:30] MED LIST changes: +ASPI81CT89 PO; -ASPIRIN81 M1 PO; +ATOR40TA PO; +CARV3.12 PO; +CIPR500T4 PO; -CIPRO500 MG PO; -COREG3.125 MG PO; -FLORASTOR250 MG PO; +LACT1.4C PO; -LIPITOR40 MG PO; +MULT-298 PO; -MULTIVITAMIN1 TA1 PO; -PLAVIX75 MG PO; -ROCEPHIN 11000 MG/50 IV; -ROCEPHIN2 GM IV; -ULTRAM50 MG
[2017-05-05 17:38] VITALS: BP 117/74
--- NOTE | 2017-05-05 17:59 | NUR ---
PT BIBA TO BED 5 AT THIS TIME.
--- NOTE | 2017-05-05 18:23 | NUR ---
PATIENT PRESENTS TO ED WITH BIB EMS FROM [facility] WITH C/O COUGHING GREEN THICK MUCOUS TODAY;HX; CAD, STROKE HTN;RX OF TRAMADOL, PLAVIX, FEOSOL, NORCO, ASPIRIN, ATRORVASTATIN, COREG .PT IS NON VERBAL BUT FOLLOWS COMMAND; N/V/D; SKIN IS PINK/WARM/DRY; AWAKE AND ALERT; LUNGS CLEAR BL; HR EVEN AND REGULAR; PT DENIES ANY FEVER, CP, SOB, OR COUGH AT THIS TIME; PATIENT STATES PAIN OF 0/10 AT THIS TIME; PATIENT POSITIONED FOR COMFORT; HOB ELEVATED; BEDRAILS UP X2; BED DOWN. ALL MONITORS IN PLACED.
--- NOTE | 2017-05-05 18:27 | NUR ---
DR HILL AT BEDSIDE.
[2017-05-05] MEDS ORDERED: ALBUTEROL 0.083% 2.5 MG/3 ML NEBU INH ONE (18:35)
[2017-05-05] MEDS ORDERED: NACL 0.9% 500 ML IV ONE (18:35)
[2017-05-05] MEDS ORDERED: IPRATROPIUM 0.02% 0.5 MG/2.5 ML NEBU INH ONE (18:35)
[2017-05-05 18:50] LABS: BLOOD GAS BASE EXCESS -2.9 mmol/L (-2.0-2.0); BLOOD GAS HCO3 19.9 mmol/L; BLOOD GAS O2 SAT% 93.2 % (92.0-98.5); BLOOD GAS PCO2 29.2 mmHg (20-50); BLOOD GAS PH 7.452 (7.35-7.45); BLOOD GAS PO2 66.1 mmHg
[2017-05-05 19:19] LABS: ANION GAP 11.1 (8-16); CALCIUM 9.1 mg/dL (8.5-10.1); CARBON DIOXIDE 27.9 mmol/L (21-32); CHLORIDE 108 mmol/L (98-107); CREATININE 0.7 mg/dL (0.6-1.3); GLUCOSE 128 mg/dL (74-106); SODIUM SERUM 143 mmol/L (136-145); UREA NITROGEN, BLOOD 12 mg/dL (7-18)
[2017-05-05 19:25] LABS: ALANINE AMINOTRANSFERASE 17 U/L (14-59); ALBUMIN 3.1 g/dL (3.4-5.0); ALKALINE PHOSPHATASE 69 U/L (46-116); ASPARTATE AMINOTRANSFERASE 13 U/L (15-37); BASOPHILS # (AUTO) 0.1 K/uL (0.00-0.22); BASOPHILS % (AUTO) 1.2 % (0.0-2.0); EOSINOPHILS # (AUTO) 0.2 K/uL (0-0.4); EOSINOPHILS % (AUTO) 1.9 % (0.0-4.0); HEMATOCRIT 38.5 % (36-48); HEMOGLOBIN 12.6 g/dL (12.0-16.0); LYMPHOCYTES # (AUTO) 1.3 K/uL (2.5-16.5); LYMPHOCYTES % (AUTO) 12.2 % (20.5-51.1); MEAN CORPUSCULAR HEMOGLOBIN 26 pg (27-31); MEAN CORPUSCULAR HGB CONC 33 g/dL (33-37); MEAN CORPUSCULAR VOLUME 80 fL (80-94); MONOCYTES # (AUTO) 0.3 K/uL (0.8-1.0); MONOCYTES % (AUTO) 2.6 % (1.7-9.3); NEUTROPHILS # (AUTO) 8.6 K/uL (1.8-7.7); NEUTROPHILS % (AUTO) 82.1 % (42.2-75.2); PLATELET COUNT (AUTO) 307 K/uL (140-450); RED BLOOD CELL COUNT(AUTO) 4.79 MIL/uL (4.20-5.40); RED CELL DISTRIBUTION WIDTH 14.6 % (11.6-13.7); TOTAL BILIRUBIN 0.5 mg/dL (0.0-1.0); TOTAL PROTEIN, SERUM 7.1 g/dL (6.4-8.2); WHITE BLOOD COUNT (AUTO) 10.5 K/uL (4.8-10.8)
--- NOTE | 2017-05-05 19:26 | NUR ---
RECEIVED REPORT FROM ARABELLA FRANCISCO FOR TRANSFER OF CARE.
[2017-05-05 19:27] LABS: LACTIC ACID 0.9 mmol/L (0.4-2.0)
[2017-05-05] MEDS ORDERED: NACL 0.9% 1,000 ML IV ONE (19:40)
--- NOTE | 2017-05-05 19:40 | NUR ---
Dr. Foote evaluating patient at bedside.
[2017-05-05] MEDS ORDERED: cefTRIAXone 1,000 MG VIAL ONE (19:56)
[2017-05-05] MEDS ORDERED: DOCUSATE SODIUM 100 MG GELCAP PO PRN (20:15)
[2017-05-05] MEDS ORDERED: ONDANSETRON 4 MG/2 ML VIAL IM/IVP PRN (20:15)
[2017-05-05] MEDS ORDERED: ACETAMINOPHEN 325 MG TAB PO PRN (20:15)
[2017-05-05] MEDS ORDERED: MORPHINE SULFATE 2 MG/ML SYR IVP PRN (20:15)
--- NOTE | 2017-05-05 20:15 | NUR ---
RECEIVED REPORT FROM ED RN FOR CONTINUITY OF CARE. 81 Y.O. FEMALE BROUGHT TO UNIT WITH DX: UTI AND WEAKNESS. PATIENT IS APHASIC, SPOKE TO FAMILY MEMBER AND EXPLAINED PLAN OF CARE. SHIFT ASSESSMENT DONE, VITAL SIGNS STABLE, PATIENT IN A.FIB ON TELE MONITOR WILL INFORM MD. NO S/S OF RESPIRATORY DISTRESS NOTED ON 2L NC. FLACC-0 IV TO RT AC PATENT AND INFUSING FLUIDS WELL. MRSA SWAB COLLECTED, WRISTBANDS APPLIED. PATIENT HAS SACRAL WOUND WITH DRESSING INTACT. TAYLOR CATHETER IN PLACE DRAINING DARK ARABELLA URINE TO GRAVITY. SAFETY PRECAUTIONS ENFORCED, WILL CONTINUE TO MONITOR FREQUENTLY.
--- NOTE | 2017-05-05 20:25 | NUR ---
Patient will be admitted to care of DR REINOSO. Admited to TELE. Will go to room 110B. Belongings list completed. Report to ARABELLA LEON.
[2017-05-05] MEDS ORDERED: ALBUTEROL 0.083% 2.5 MG/3 ML NEBU INH PRN (20:30)
[2017-05-05] MEDS ORDERED: MECLIZINE 25 MG TAB PO PRN (20:40)
[2017-05-05 20:48] LABS: APPEARANCE,URINE CLOUDY (CLEAR); COLOR,URINE BROWN (YELLOW); PROTEIN,URINE 2+ (NEGATIVE); UGLUCOSE NEGATIVE (NEGATIVE)
[2017-05-05 20:49] LABS: BILIRUBIN,URINE NEGATIVE (NEGATIVE); BLOOD, URINE 3+ (NEGATIVE); LEUKOCYTE ESTERASE ,URINE 3+ (NEGATIVE); NITRITE, URINE NEGATIVE (NEGATIVE); RBC,URINE >100 /HPF (0-5); UROBILINOGEN,URINE 0.2 EU/dL (0.2 - 1); WBC,URINE TOO MANY TO COUNT /HPF (0-5)
[2017-05-05 20:50] LABS: BACTERIA,URINE 2+ /HPF (None Seen); SQUAMOUS EPITHELIAL CELL,UR None Seen /LPF (0-3 (FEW))
[2017-05-05 20:53] LABS: CHOL/HDL RATIO 3.4 (1-4.5); FREE T4 (FREE THYROXINE) 1.21 ng/dL (0.76-1.46); MAGNESIUM 1.6 mg/dL (1.8-2.4); PHOSPHORUS 3.6 mg/dL (2.5-4.9); THYROID STIMULATING HORMONE 6.64 uIU/mL (0.34-3.74)
[2017-05-05 20:53] LABS: AMPHETAMINE, URINE NEG. ng/ml (NEG <=1000); BARBITURATE, URINE NEG. ng/ml (NEG <=200); BENZODIAZEPINE, URINE NEG. ng/mL (NEG <=200); CANNABINOID, URINE NEG. ng/mL (NEG <=50); COCAINE, URINE NEG. ng/mL (NEG <=300); OPIATE, URINE NEG. ng/mL (NEG <=2000); PHENCYCLIDINE SCREEN,URINE NEG. ng/mL (NEG <=25)
[2017-05-05 21:00] VITALS: BP 123/70
--- NOTE | 2017-05-05 21:00 | NUR ---
ULTRASOUND BEING PERFORMED, IN TO ASSESS PATIENT, INFORMED DR. RODRIGUEZ OF A.FIB ON MONITOR, WILL FOLLOW OUT ORDERS GIVEN.
[2017-05-05 21:20] LABS: INR 1.1 (0.8-1.2); PARTIAL THROMBOPLASTIN TIME 26.8 secs (22-35.6); PROTHROMBIN TIME 10.9 secs (10.8-13.4)
[2017-05-05] MEDS ORDERED: DILTIAZEM 25 MG/5 ML VIAL IVP SCH (21:40)
--- NOTE | 2017-05-05 22:10 | NUR ---
PATIENT LEFT TO CT IN STABLE CONDITION.
--- NOTE | 2017-05-05 22:30 | NUR ---
PATIENT RETURNED FROM CT IN STABLE CONDITION. TURNED AND REPOSITIONED TO OFFLOAD PRESSURE.
[2017-05-05] MEDS: NACL 0.9% 1,000 ML IV SCH (23:00)
[2017-05-05] MEDS: ATORVASTATIN 20 MG TAB PO SCH (23:29)
[2017-05-06] VITALS: BP 105/65
[2017-05-06] MEDS: DILTIAZEM 60 MG TAB PO SCH ×4 (00:03→18:00)
--- NOTE | 2017-05-06 00:03 | NUR ---
VITAL SIGNS STABLE, CARDIZEM P.O. GIVEN. HR BETWEEN [phone]. PATIENT RESTING IN BED NO S/S OF DISTRESS OR DISCOMFORT NOTED.
--- NOTE | 2017-05-06 02:15 | NUR ---
PATIENT RESTING IN BED, NO S/S OF DISTRESS OR DISCOMFORT NOTED. WILL CONTINUE TO MONITOR.
[2017-05-06] MEDS ORDERED: IPRATROPIUM 0.02% 0.5 MG/2.5 ML NEBU INH PRN (03:00)
[2017-05-06] MEDS ORDERED: IPRATROPIUM 0.02% 0.5 MG/2.5 ML NEBU INH SCH (03:00)
[2017-05-06 04:00] VITALS: BP 108/64
--- NOTE | 2017-05-06 04:10 | NUR ---
VITAL SIGNS STABLE, PATIENT TURNED AND REPOSITIONED. INFORMED DR. RODRIGUEZ OF PATIENT MG 1.6, NO CHANGE IN ORDERS. SAFETY MEASURES ENFORCED, WILL CONTINUE TO MONITOR.
--- NOTE | 2017-05-06 06:00 | NUR ---
PATIENT ASLEEP AT THIS TIME, NO S/S OF DISTRESS OR DISCOMFORT NOTED. WILL CONTINUE TO MONITOR.
[2017-05-06 06:35] LABS: HEMATOCRIT 34.1 % (36-48); HEMOGLOBIN 11.1 g/dL (12.0-16.0); MEAN CORPUSCULAR HEMOGLOBIN 27 pg (27-31); MEAN CORPUSCULAR HGB CONC 33 g/dL (33-37); MEAN CORPUSCULAR VOLUME 82 fL (80-94); PLATELET COUNT (AUTO) 256 K/uL (140-450); RED BLOOD CELL COUNT(AUTO) 4.19 MIL/uL (4.20-5.40); RED CELL DISTRIBUTION WIDTH 14.6 % (11.6-13.7); WHITE BLOOD COUNT (AUTO) 19.9 K/uL (4.8-10.8)
[2017-05-06 06:59] LABS: ANION GAP 10.9 (8-16); CALCIUM 8.2 mg/dL (8.5-10.1); CARBON DIOXIDE 25.8 mmol/L (21-32); CHLORIDE 110 mmol/L (98-107); CREATININE 0.6 mg/dL (0.6-1.3); GLUCOSE 110 mg/dL (74-106); POTASSIUM 3.7 mmol/L (3.5-5.1); SODIUM SERUM 143 mmol/L (136-145); UREA NITROGEN, BLOOD 11 mg/dL (7-18)
--- NOTE | 2017-05-06 07:12 | NUR ---
ENDORSED PATIENT TO DAY RN FOR CONTINUITY OF CARE, PATIENT IS IN STABLE CONDITION.
--- NOTE | 2017-05-06 07:15 | NUR ---
RECEIVED PATIENT AT BEDSIDE. PATIENT AWAKE BUT APHASIC. NO S/S OF DISTRESS NOTED. PATIENT ON ROOM AIR. RIGHT SIDE WEAKNESS NOTED. TAYLOR CATHETER IN PLACE, DRAINING DARK BLOODY URINE. IV LINE NOTED TO THE RIGHT AC WITH IVF INFUSING WELL. PATIENT ON TELE MONITORING. BED LOWERED WITH CALL LIGHT WITHIN REACH. WILL CONTINUE TO MONITOR
[2017-05-06 07:24] LABS: BAND % (MANUAL) 6 % (0-8); LYMPHOCYTES % (MANUAL) 5 % (20-46); MONOCYTES % (MANUAL) 2 % (5-12); NEUTROPHILS % (MANUAL) 87 (43-65)
[2017-05-06] MEDS: BUDESONIDE 0.25 MG/2 ML NEBU INH SCH ×2 (07:30→19:01)
[2017-05-06 08:00] VITALS: BP 96/52
[2017-05-06] MEDS ORDERED: MAG SULF 2000 MG/WATER PREMIX 50 ML IV ONE (08:00)
[2017-05-06] MEDS ORDERED: NON-FORMULARY ITEM (L. Acidophilus/L.bulgaricus (Lactinex Chewable Tablet) 1.4 MG) PO SCH (08:00)
[2017-05-06 08:19] LABS: T4 (THYROXINE) 7.8 ug/dL (4.5-12.0)
[2017-05-06] MEDS ORDERED: PIPER/TAZO 2.25GM/D5W PREMIX 50 ML IV SCH ×3 (08:43→18:00)
--- NOTE | 2017-05-06 09:04 | NUR ---
PATIENT HAS BEEN SCREENED AND CATEGORIZED HIGH NUTRITION RISK. PATIENT WILL BE SEEN WITHIN 1-2 DAYS OF ADMISSION. 05/06/17-05/07/[address]
[2017-05-06] MEDS: MULTIVITAMIN 1 TAB PO SCH (09:09)
[2017-05-06] MEDS: ASPIRIN 81 MG TAB.CHEW PO SCH (09:09)
[2017-05-06] MEDS: LACTOBACILLUS RHAMNOSUS GG 1 EACH CAP PO SCH ×3 (09:10→17:41)
[2017-05-06] MEDS: NACL 0.9% 1,000 ML IV SCH ×3 (09:13→21:57)
--- NOTE | 2017-05-06 09:40 | NUR ---
PATIENT GIVEN BED BATH. PATIENT TURNED AND REPOSITIONED FOR COMFORT. PATIENT TOLERATED WELL
--- NOTE | 2017-05-06 09:40 | NUR ---
MADE DR WHITE AWARE OF THE PATIENT'S SACRAL WOUND. DR ARREDONDO PUT ORDERS
[2017-05-06] MEDS ORDERED: PIPER/TAZO 3.375GM/D5W PREMIX 50 ML IV SCH ×2 (10:00→18:00)
[2017-05-06 12:00] VITALS: BP 96/55
[2017-05-06] MEDS ORDERED: THERAHONEY WOUND DRESSING TP PRN (12:00)
[2017-05-06] MEDS ORDERED: MAG SULF 2000 MG/WATER PREMIX 50 ML IV SCH (13:30)
--- NOTE | 2017-05-06 13:33 | NUR ---
05/06/17 RD INITIAL ASSESSMENT COMPLETED PLEASE REFER TO NUTRITION ASSESSMENT UNDER CARE ACTIVITY FOR ESTIMATED NUTRITIONAL NEEDS. 1. CONTINUE MECHANICAL SOFT DIET 2. CONSIDER DIET HEALTH SHAKE 3X DAILY 3. RD TO FOLLOW-UP 2-3 DAYS; HIGH RISK MIS BYRD RD
--- NOTE | 2017-05-06 15:24 | NUR ---
PATIENT ASLEEP IN BED. NO S/S OF DISTRESS NOTED
[2017-05-06 16:00] VITALS: BP 96/54
--- NOTE | 2017-05-06 16:19 | NUR ---
PT UNABLE TO GIVE SPUTUM SAMPLE. BS CLEAR. DR WHITE AWARE.
--- NOTE | 2017-05-06 16:35 | NUR ---
PATIENT SEEN BY SPEECH THERAPIST. PER ST PATIENT TOLERATED WELL AND CAN REMAIN ON MECHANICAL SOFT DIET
--- NOTE | 2017-05-06 16:49 | NUR ---
* ST NOTE * Pt seen at bedside with nsg present. Bedside dysphagia and oral mechanism exams completed. See evaluation report for further details. Pt tolerating 2/2 alternating PO trials of regular solid saltine crackers w/out s/s of aspiration, requiring 1+ minutes to masticate bolus. Pt however presenting with no residue or pocketing of bolus after PO trials of regular solids. Pt also tolerating 8/8 alternating PO trials of successive sips of thin liquid apple juice via a straw, all w/out s/s of aspiration, exhibiting clear voicing WFL w/out wet or gargly vocal quality after PO intake. Because pt requiring extended amount of time to masticate regular solids, it is recommended pt continue to remain on PO diet consistency of mechanical soft textures with thin liquids for all meals, with pt and caregivers/nsg verbalizing understanding and agreeance with clinician's recommendations. Pt and caregiver/nsg education completed regarding safe swallow compensatory strategies pt and caregivers/nsg could utilize during PO intake to aid pt with swallow function, with pt and caregivers/nsg verbalizing agreeance and undestanding once again. No further ST follow up recommended at this time. Pt and caregivers/nsg education completed regarding results of evaluation; benefits of abiding by recommended PO diet consistency and aspiration precautions; and prognosis for improvement; with pt and caregivers/nsg verbalizing understanding and agreeance with clinician's recommendations. Recommend: - Continue PO diet consistency of Mechanical soft textures with thin liquids for all meals - Crush medications and administer PO mixed with puree textures - Close supervision during PO intake by caregivers/staff/family to assure strict aspiration precautions are in place secondary to pt's hx of aspiration PNA - Pt requires total assistance with feeding No further ST follow up recommended at this time. G8996 G8997 CI G8998 CI NOMS Level 2 Time In/Out 16:00 - 16:45
[2017-05-06] MEDS ORDERED: ALBUTEROL SULFATE/IPRATROPIU 3 ML SOL IH PRN ×2 (17:10→17:15)
[2017-05-06] MEDS: PIPER/TAZO 3.375GM/D5W PREMIX 50 ML IV SCH (17:42)
[2017-05-06] MEDS: ALBUTEROL SULFATE/IPRATROPIU 3 ML SOL IH SCH (18:59)
--- NOTE | 2017-05-06 19:19 | NUR ---
PATIENT UNABLE TO PERFORM INCENTIVE SPIROMETER
--- NOTE | 2017-05-06 19:20 | NUR ---
PATIENT REPORT GIVEN AT BEDSIDE. PATIENT ENDORSED IN STABLE CONDITION
--- NOTE | 2017-05-06 19:21 | NUR ---
RECEIVED REPORT FROM DAY RN FOR CONTINUITY OF CARE. PATIENT IS APHASIC, SPOKE TO FAMILY MEMBER AT BEDSIDE AND EXPLAINED PLAN OF CARE. SHIFT ASSESSMENT DONE, VITAL SIGNS STABLE. NO S/S OF RESPIRATORY DISTRESS NOTED ON ROOM AIR. PATIENT DENIES PAIN. IV TO RT AC PATENT AND INFUSING FLUIDS WELL. PATIENT HAS SACRAL WOUND WITH DRESSING DRY AND INTACT. TAYLOR CATHETER IN PLACE DRAINING DARK ARABELLA URINE TO GRAVITY. SAFETY/FALL PRECAUTIONS ENFORCED, WILL CONTINUE TO MONITOR FREQUENTLY.
[2017-05-06 20:00] VITALS: BP 105/53
--- NOTE | 2017-05-06 21:47 | NUR ---
DUE MEDICATIONS ADMINISTERED, TOLERATED WELL. PATIENT RESTING AT THIS TIME, NO DISTRESS OR DISCOMFORT.
[2017-05-06] MEDS: ATORVASTATIN 20 MG TAB PO SCH (21:57)
[2017-05-07] VITALS: BP 100/58
--- NOTE | 2017-05-07 00:05 | NUR ---
VITAL SIGNS STABLE, PATIENT RESTING AT THIS TIME. NO DISTRESS OR DISCOMFORT NOTED. WILL CONTINUE TO MONITOR.
[2017-05-07] MEDS: DILTIAZEM 60 MG TAB PO SCH ×4 (00:30→18:00)
[2017-05-07] MEDS: PIPER/TAZO 3.375GM/D5W PREMIX 50 ML IV SCH ×4 (00:30→17:52)
--- NOTE | 2017-05-07 02:07 | NUR ---
PATIENT RESTING AT THIS TIME, NO S/S OF DISTRESS OR DISCOMFORT NOTED. WILL CONTINUE TO MONITOR.
[2017-05-07 04:00] VITALS: BP 102/60
--- NOTE | 2017-05-07 04:20 | NUR ---
VITAL SIGNS STABLE, AM CARE PROVIDED. WILL CONTINUE TO MONITOR.
[2017-05-07] MEDS: NACL 0.9% 1,000 ML IV SCH ×2 (05:31→17:54)
[2017-05-07 06:18] LABS: HEMATOCRIT 32.1 % (36-48); MEAN CORPUSCULAR HEMOGLOBIN 26 pg (27-31); MEAN CORPUSCULAR HGB CONC 31 g/dL (33-37); MEAN CORPUSCULAR VOLUME 82 fL (80-94); PLATELET COUNT (AUTO) 161 K/uL (140-450); RED BLOOD CELL COUNT(AUTO) 3.92 MIL/uL (4.20-5.40); WHITE BLOOD COUNT (AUTO) 13.6 K/uL (4.8-10.8)
--- NOTE | 2017-05-07 06:20 | NUR ---
DUE MEDICATIONS ADMINISTERED. PATIENT RESTING COMFORTABLY IN BED. NO S/S OF DISTRESS OR DISCOMFORT NOTED. WILL CONTINUE TO MONITOR.
[2017-05-07 06:23] LABS: CALCIUM 8.2 mg/dL (8.5-10.1); CARBON DIOXIDE 25.4 mmol/L (21-32); CHLORIDE 110 mmol/L (98-107); CREATININE 0.8 mg/dL (0.6-1.3); GLUCOSE 96 mg/dL (74-106); POTASSIUM 3.4 mmol/L (3.5-5.1); SODIUM SERUM 144 mmol/L (136-145); UREA NITROGEN, BLOOD 10 mg/dL (7-18)
[2017-05-07 07:04] LABS: BAND % (MANUAL) 2 % (0-8); LYMPHOCYTES % (MANUAL) 6 % (20-46); MONOCYTES % (MANUAL) 3 % (5-12); NEUTROPHILS % (MANUAL) 88 (43-65)
[2017-05-07] MEDS: BUDESONIDE 0.25 MG/2 ML NEBU INH SCH ×2 (07:04→19:12)
[2017-05-07] MEDS: ALBUTEROL SULFATE/IPRATROPIU 3 ML SOL IH SCH ×3 (07:04→19:11)
[2017-05-07 07:05] LABS: ANISOCYTOSIS 1+; EOSINOPHILS % (MANUAL) 1 % (0-4); PLATELET ESTIMATE ADEQUATE
--- NOTE | 2017-05-07 07:30 | NUR ---
ENDORSED PATIENT TO DAY RN FOR CONTINUITY OF CARE.
--- NOTE | 2017-05-07 07:30 | NUR ---
RECEIVED ON BED AWAKE, ORIENTED TO NAME, APHASIC, NO SOB NOTED, . NO C/O PAIN AT THIS TIME. IV TO RT AC PATENT AND INTACT. CHEST, DIMINISHED AIR ENTRY TO THE BASES. ABDOMEN SOFT, BOWEL SOUNDS PRESENT. WITH TAYLOR CATHETER DRAINING DRAINING SMALL AMOUNTS OF DARK ARABELLA URINE NOTED. DRESSING TO SACRAL WOUND DRY AND INTACT. RIGHT SIDED WEAKNESS NOTED. WILL REPOSITION PT EVERY 2 HRS. INSTRUCTED PT TO CALL FOR ASSISTANCE, CALL LIGHT WITHIN REACH, PT VERBALIZED PARTIAL UNDERSTANDING.
[2017-05-07 08:00] VITALS: BP 111/61
[2017-05-07] MEDS ORDERED: POTASSIUM CHLORIDE 10 MEQ TABER PO SCH (09:00)
[2017-05-07] MEDS ORDERED: THERAHONEY WOUND DRESSING TP SCH (09:00)
[2017-05-07] MEDS ORDERED: POTASSIUM CHLORIDE 20% 40 MEQ/15 ML UDC PO SCH (09:30)
[2017-05-07] MEDS: LACTOBACILLUS RHAMNOSUS GG 1 EACH CAP PO SCH ×3 (09:33→17:51)
[2017-05-07] MEDS: ASPIRIN 81 MG TAB.CHEW PO SCH (09:33)
[2017-05-07] MEDS: MULTIVITAMIN 1 TAB PO SCH (09:33)
--- NOTE | 2017-05-07 09:50 | NUR ---
PT AMBULATED TO THE BATHROOM WITH 1 PERSON ASSIST. ACTIVITY TOLERATED WELL. NO SOB NOTED. Addendum: 05/07/17 at 1857 by Maci Quiles RN DISREGARD ABOVE NOTES, INCORRECT PT.
[2017-05-07 12:00] VITALS: BP 102/57
--- NOTE | 2017-05-07 12:24 | NUR ---
PT IS EATING AND REFUSED HHN TX AT THIS TIME. WILL CONTINUE TO MONITOR.
--- NOTE | 2017-05-07 13:43 | NUR ---
CLINICAL REVIEW DONE.
[2017-05-07 16:00] VITALS: BP 100/66
--- NOTE | 2017-05-07 17:00 | NUR ---
URINE SPECIMEN COLLECTED AND SENT TO LAB FOR URINE CULTURE AND SENSITIVITY. THE FIRST ONE WAS CONTAMINATED.
--- NOTE | 2017-05-07 19:05 | NUR ---
PT RESTING. NO SOB NOTED. NO SIGN SOF PAIN. WILL ENDORSE TO NEXT SHIFT NURSE FOR CONTINUITY OF CARE.
--- NOTE | 2017-05-07 19:30 | NUR ---
RECEIVED REPORT FROM DAY RN AT BEDSIDE, PATIENT IS AAO X1, APHASIC, SITTING UP IN BED, ON ROOM AIR, NO SOB OR SIGN OF DISTRESS, IV TO RIGHT AC PATENT AND INTACT, SACRAL ULCER NOTED ALL OTHER SKIN INTACT, PT DOES NOT APPEAR TO BE IN PAIN, FLACC-0. TAYLOR PRESENT WITH DARK ARABELLA URINE DRAINING TO GRAVITY. SAFETY MEASURES CHECKED, CALL LIGHT WITHIN REACH. WILL CONTINUE TO MONITOR.
[2017-05-07 20:00] VITALS: BP 102/52
[2017-05-07] MEDS: ATORVASTATIN 20 MG TAB PO SCH (20:45)
--- NOTE | 2017-05-07 20:58 | NUR ---
PM MED ADMINISTERED, CRUSHED AND MIXED WITH APPLESAUCE, PT TOLERATED WELL, CALL LIGHT WITHIN REACH. WILL CONTINUE TO MONITOR.
--- NOTE | 2017-05-07 22:40 | NUR ---
PT SLEEPING, NO SOB OR SIGN OF DISTRESS, CALL LIGHT WITHIN REACH. WILL CONTINUE TO MONITOR.
[2017-05-08] VITALS: BP 102/69
--- NOTE | 2017-05-08 00:29 | NUR ---
VITAL SIGNS STABLE, NO SOB OR SIGN OF DISTRESS, FLACC-0 CALL LIGHT WITHIN REACH. WILL CONTINUE TO MONITOR.
[2017-05-08] MEDS: ALBUTEROL SULFATE/IPRATROPIU 3 ML SOL IH SCH ×3 (00:30→19:20)
[2017-05-08] MEDS: PIPER/TAZO 3.375GM/D5W PREMIX 50 ML IV SCH ×4 (00:32→17:09)
--- NOTE | 2017-05-08 02:00 | NUR ---
PT SLEEPING, NO SIGN OF DISTRESS, CALL LIGHT WITHIN REACH. WILL CONTINUE TO MONITOR.
[2017-05-08 04:00] VITALS: BP 116/68
--- NOTE | 2017-05-08 04:30 | NUR ---
VITAL SIGNS STABLE, NO SOB OR SIGN OF DISTRESS, CALL LIGHT WITHIN REACH. WILL CONTINUE TO MONITOR.
[2017-05-08] MEDS: DILTIAZEM 60 MG TAB PO SCH ×4 (06:00→17:08)
[2017-05-08 06:02] LABS: BASOPHILS # (AUTO) 0.1 K/uL (0.00-0.22); EOSINOPHILS # (AUTO) 0.5 K/uL (0-0.4); LYMPHOCYTES # (AUTO) 1.2 K/uL (2.5-16.5)
[2017-05-08 06:08] LABS: BASOPHILS % (AUTO) 0.7 % (0.0-2.0); HEMATOCRIT 32.6 % (36-48); HEMOGLOBIN 10.3 g/dL (12.0-16.0); LYMPHOCYTES % (AUTO) 12.7 % (20.5-51.1); MEAN CORPUSCULAR HEMOGLOBIN 26 pg (27-31); MEAN CORPUSCULAR HGB CONC 32 g/dL (33-37); MEAN CORPUSCULAR VOLUME 82 fL (80-94); MONOCYTES # (AUTO) 0.5 K/uL (0.8-1.0); MONOCYTES % (AUTO) 5.5 % (1.7-9.3); NEUTROPHILS % (AUTO) 76.1 % (42.2-75.2); PLATELET COUNT (AUTO) 166 K/uL (140-450); RED BLOOD CELL COUNT(AUTO) 3.96 MIL/uL (4.20-5.40); RED CELL DISTRIBUTION WIDTH 14.8 % (11.6-13.7); WHITE BLOOD COUNT (AUTO) 9.3 K/uL (4.8-10.8)
[2017-05-08 06:32] LABS: ANION GAP 11.7 (8-16); CARBON DIOXIDE 25.2 mmol/L (21-32); CHLORIDE 110 mmol/L (98-107); CREATININE 0.7 mg/dL (0.6-1.3); GLUCOSE 86 mg/dL (74-106); POTASSIUM 3.9 mmol/L (3.5-5.1); SODIUM SERUM 143 mmol/L (136-145); UREA NITROGEN, BLOOD 9 mg/dL (7-18)
[2017-05-08] MEDS: BUDESONIDE 0.25 MG/2 ML NEBU INH SCH ×2 (06:44→19:20)
[2017-05-08 06:45] LABS: MAGNESIUM 1.7 mg/dL (1.8-2.4); PHOSPHORUS 2.8 mg/dL (2.5-4.9)
--- NOTE | 2017-05-08 07:24 | NUR ---
ENDORSED PATIENT TO DAY RN AT BEDSIDE, PT IN STABLE CONDITION
--- NOTE | 2017-05-08 07:25 | NUR ---
PT AWAKE, ALERT AND APHASIC, OBEYS COMMANDS, NO SIGNS OF ACUTE DISTRESS. BOWEL SOUNDS ACTIVE IN ALL 4 QUADRANTS. BOWEL AND BLADDER INCONTINENCE WITH TAYLOR IN PLACE. NO REDNESS OR IRRITATION AROUND TAYLOR INSERTION SITE. URINE DARK ARABELLA. SKIN PRESSURE ULCER COVERED WITH DRY DRESSING ON SACRUM. FLACC SCORE 1, GRIMACE AND SQUIRMING REASSURED WITH TALKING, WILL MEDICATE. RE-ORIENTED PATIENT TO UNIT AND HOSPITAL, PT UNABLE TO COMPREHEND. BED IN LOW POSITION WITH BILATERAL HALF SIDE RAILS UP, CALL LIGHT WITHIN REACH. WANDA LOPES RN
[2017-05-08 08:00] VITALS: BP 119/76
--- NOTE | 2017-05-08 08:00 | NUR ---
PT COMPLAINT OF PAIN IN ABDOMEN 01/27, WILL MEDICATE AND CONTINUE TO MONITOR. Addendum: 05/08/17 at 1239 by Marii Pina RN DISREGARD, WRONG PATIENT.
--- NOTE | 2017-05-08 08:00 | NUR ---
PATIENT AWAKE AND ALERT, NO SIGNS OF ACUTE DISTRESS. FACIAL GRIMACING, RESTLESSNESS IN ARMS AND MOVING HEAD BACK AND FORTH, FLACC SCORE = 1, WILL MEDICATE PATIENT WITH PRN PAIN MEDICATION AND CONTINUE TO MONITOR.
[2017-05-08] MEDS: NACL 0.9% 1,000 ML IV SCH ×2 (08:01→20:20)
[2017-05-08] MEDS: LACTOBACILLUS RHAMNOSUS GG 1 EACH CAP PO SCH ×3 (08:30→17:09)
[2017-05-08] MEDS: ASPIRIN 81 MG TAB.CHEW PO SCH (08:30)
[2017-05-08] MEDS: MULTIVITAMIN 1 TAB PO SCH (08:30)
[2017-05-08] MEDS: HYDROcodone/APAP 7.5/325 MG 1 TAB PO PRN ×2 (08:31→18:26)
--- NOTE | 2017-05-08 10:00 | NUR ---
PT AWAKE AND ALERT, RESTING COMFORTABLY IN BED, NO SIGNS OF ACUTE DISTRESS. WILL CONTINUE TO MONITOR.
--- NOTE | 2017-05-08 10:00 | NUR ---
PT AWAKE AND ALERT, RESTING COMFORTABLY AT BED WITH AT BEDSIDE. NO SIGNS OF ACUTE DISTRESS. WILL CONTINUE TO MONITOR. Addendum: 05/08/17 at 1240 by Marii Pina RN DISREGARD, WRONG PATIENT
--- NOTE | 2017-05-08 10:13 | NUR ---
05/08/17 RD FOLLOW-UP ASSESSMENT COMPLETED PLEASE REFER TO NUTRITION ASSESSMENT UNDER CARE ACTIVITY FOR ESTIMATED NUTRITIONAL NEEDS. 1. CONTINUE REGULAR DIET WITH TEXTURE PER ST RECOMMENDATIONS (CURRENTLY MECHANICAL SOFT WITH THIN LIQUIDS) 2. CONTINUE HEALTH SHAKE TID 3. RD TO FOLLOW-UP 3-5 DAYS; MODERATE RISK MIS BYRD, [place]
[2017-05-08 12:00] VITALS: BP 99/64
--- NOTE | 2017-05-08 12:15 | NUR ---
PT SITTING UPRIGHT IN BED, BILATERAL HALF SIDE RAILS UP, BEING FED LUNCH BY EVER VYAS. NO SIGNS OF ACUTE DISTRESS, FLACC SCORE = 0. WILL CONTINUE TO MONITOR.
--- NOTE | 2017-05-08 12:37 | NUR ---
PT EATING LUNCH WITH AT BEDSIDE, NO SIGNS OF ACUTE DISTRESS. WILL CONTINUE TO MONITOR. Addendum: 05/08/17 at 1240 by Marii Pina RN DISREGARD, WRONG PATIENT.
--- NOTE | 2017-05-08 12:58 | NUR ---
ATTEMPTED INSTRUCT PATIENT ON IS, PATIENT UNABLE TO FOLLOW VERBAL COMMANDS. NO RESPIRATORY DISTRESS NOTED AT THIS TIME
[2017-05-08] MEDS ORDERED: MAG SULF 2000 MG/WATER PREMIX 50 ML IV SCH (13:45)
--- NOTE | 2017-05-08 14:15 | NUR ---
PT SLEEPING COMFORTABLY IN BED, NO SIGNS OF ACUTE DISTRESS. BED IN LOW POSITION WITH BILATERAL HALF SIDE RAILS UP, CALL LIGHT WITHIN REACH. WILL CONTINUE TO MONITOR.
[2017-05-08 16:00] VITALS: BP 104/61
--- NOTE | 2017-05-08 16:12 | NUR ---
PT AWAKE AND RESTING COMFORTABLY IN BED, NO SIGNS OF ACUTE DISTRESS. PT FOLLOWS COMMANDS AND SHOOK HER HEAD BACK AND FORTH TO REPRESENT NO, WHEN I ASKED HER IF SHE NEEDED ANYTHING AND IF SHE WAS HAVING PAIN. BED IN LOW POSITION WITH BILATERAL HALF SIDE RAILS UP, CALL LIGHT WITHIN REACH. WILL CONTINUE TO MONITOR.
--- NOTE | 2017-05-08 19:20 | NUR ---
PT AWAKE, ALERT AND APHASIC, NO SIGNS OF ACUTE DISTRESS. ENDORSED TO HOUSING PROPERTY MANAGER NURSE FOR CONTINUITY OF CARE.
--- NOTE | 2017-05-08 19:21 | NUR ---
RECEIVED REPORT FROM AM NURSE. PT IS AWAKE AND APHASIC. NO S/S OF DISTRESS. FLACC SCORE OF 0. WITH A PRESSURE ULCER COVERED WITH A DRY DRESSING ON THE SACRUM. WITH AN IV ON THE RT AC 22 G, INTACT AND PATENT. WITH AN INDWELLING TAYLOR CATHETER IN PLACE, DRAINING TO ARABELLA URINE. DISCUSSED PLAN OF CARE TO THE PATIENT, BUT NEEDS REINFORCEMENT. CALL LIGHT WITHIN REACH. SAFETY CHECKS IN PLACE. WILL CONTINUE TO MONITOR FOR ANY CHANGES.
[2017-05-08 20:00] VITALS: BP 92/50
[2017-05-08] MEDS: ATORVASTATIN 20 MG TAB PO SCH (20:21)
--- NOTE | 2017-05-08 21:00 | NUR ---
DUE MEDS GIVEN, WELL TOLERATED. NO S/S OF DISTRESS. WILL CONTINUE TO MONITOR. CALL LIGHT WITHIN REACH. SAFETY CHECKS IN PLACE.
[2017-05-09] VITALS: BP 113/84
--- NOTE | 2017-05-09 00:45 | NUR ---
DUE MEDS GIVEN, HELD DILTIAZEM DUE TO HAVING DECREASED BP. NO S/S OF DISTRESS. FLACC SCORE OF 0. WILL CONTINUE TO MONITOR. CALL LIGHT WITHIN REACH. SAFETY CHECKS IN PLACE.
[2017-05-09] MEDS: PIPER/TAZO 3.375GM/D5W PREMIX 50 ML IV SCH ×4 (00:47→17:09)
--- NOTE | 2017-05-09 03:13 | NUR ---
PT RESTING IN BED. NO S/S OF DISTRESS. WILL CONTINUE TO MONITOR. SAFETY CHECKS IN PLACE.
[2017-05-09 04:00] VITALS: BP 99/61
--- NOTE | 2017-05-09 04:15 | NUR ---
VITAL SIGNS TAKEN, STABLE. FLACC SCORE OF 0. WILL CONTINUE TO MONITOR. SAFETY CHECKS IN PLACE. CALL LIGHT WITHIN REACH.
[2017-05-09] MEDS: DILTIAZEM 60 MG TAB PO SCH ×4 (05:20→17:09)
[2017-05-09] MEDS: NACL 0.9% 1,000 ML IV SCH (05:26)
[2017-05-09 06:11] LABS: MAGNESIUM 1.9 mg/dL (1.8-2.4); PHOSPHORUS 2.7 mg/dL (2.5-4.9)
[2017-05-09 06:32] LABS: ANION GAP 8.4 (8-16); CALCIUM 7.9 mg/dL (8.5-10.1); CARBON DIOXIDE 26.1 mmol/L (21-32); CHLORIDE 110 mmol/L (98-107); CREATININE 0.7 mg/dL (0.6-1.3); GLUCOSE 92 mg/dL (74-106); POTASSIUM 3.5 mmol/L (3.5-5.1); SODIUM SERUM 141 mmol/L (136-145); UREA NITROGEN, BLOOD 9 mg/dL (7-18)
[2017-05-09 06:33] LABS: BASOPHILS # (AUTO) 0.2 K/uL (0.00-0.22); EOSINOPHILS # (AUTO) 0.5 K/uL (0-0.4); EOSINOPHILS % (AUTO) 5.6 % (0.0-4.0); HEMATOCRIT 32.5 % (36-48); LYMPHOCYTES # (AUTO) 1.2 K/uL (2.5-16.5); MEAN CORPUSCULAR HEMOGLOBIN 25 pg (27-31); MEAN CORPUSCULAR HGB CONC 31 g/dL (33-37); MEAN CORPUSCULAR VOLUME 82 fL (80-94); MONOCYTES # (AUTO) 0.4 K/uL (0.8-1.0); MONOCYTES % (AUTO) 4.5 % (1.7-9.3); NEUTROPHILS # (AUTO) 6.2 K/uL (1.8-7.7); NEUTROPHILS % (AUTO) 73.9 % (42.2-75.2); RED BLOOD CELL COUNT(AUTO) 3.96 MIL/uL (4.20-5.40); RED CELL DISTRIBUTION WIDTH 15.4 % (11.6-13.7)
[2017-05-09 06:55] LABS: WHITE BLOOD COUNT (AUTO) 8.5 K/uL (4.8-10.8)
[2017-05-09 06:57] LABS: PLATELET COUNT (AUTO) 169 K/uL (140-450)
[2017-05-09] MEDS: ALBUTEROL SULFATE/IPRATROPIU 3 ML SOL IH SCH ×3 (07:08→19:12)
[2017-05-09] MEDS: BUDESONIDE 0.25 MG/2 ML NEBU INH SCH ×2 (07:12→19:13)
--- NOTE | 2017-05-09 07:15 | NUR ---
ENDORSED TO AM SHIFT FOR CONTINUITY OF CARE. IN STABLE CONDITION.
--- NOTE | 2017-05-09 07:16 | NUR ---
PT AWAKE, ALERT AND APHASIC, OBEYS COMMANDS, NO SIGNS OF ACUTE DISTRESS. BOWEL SOUNDS ACTIVE IN ALL 4 QUADRANTS, BOWEL AND BLADDER INCONTINENCE WITH TAYLOR IN PLACE DRAINING DARK ARABELLA URINE. PT BEDBOUND. IV PATENT AND ASYMPTOMATIC IN RIGHT AC. SACRAL WOUND COVERED WITH DRY DRESSING. FLACC SCORE IS ZERO. RE-ORIENTED PATIENT TO HOSPITAL AND TO UNIT. BED IN LOW POSITION WITH BILATERAL HALF SIDE RAILS UP, CALL LIGHT WITHIN REACH.
[2017-05-09 07:58] VITALS: BP 122/74
[2017-05-09] MEDS: LACTOBACILLUS RHAMNOSUS GG 1 EACH CAP PO SCH ×3 (09:00→17:09)
[2017-05-09] MEDS: ASPIRIN 81 MG TAB.CHEW PO SCH (09:00)
[2017-05-09] MEDS: MULTIVITAMIN 1 TAB PO SCH (09:00)
--- NOTE | 2017-05-09 10:13 | NUR ---
PT SLEEPING, NO SIGNS OF ACUTE DISTRESS. BED IN LOW POSITION WITH BILATERAL HALF SIDE RAILS UP, CALL LIGHT WITHIN REACH. WILL CONTINUE TO MONITOR.
[2017-05-09 12:00] VITALS: BP 118/73
--- NOTE | 2017-05-09 12:56 | NUR ---
CM NOTE PATIENT TO BE PICKED UP VIA GURNEY BY [facility] GOING TO [facility], RM 15A. ETA 1630. MADE AWARE THAT PATIENT WILL BE NEEDING 02 FOR TRANSPORT. MYRA BELL MADE AWARE. Addendum: 05/09/17 at 1258 by Mark Her RN WRONG PATIENT
--- NOTE | 2017-05-09 13:00 | NUR ---
PT RESTING COMFORTABLY IN BED, NO SIGNS OF ACUTE DISTRESS. SAFETY CHECKS IN PLACE. BED IN LOW POSITION WITH BILATERAL HALF SIDE RAILS UP, CALL LIGHT WITHIN REACH. WILL CONTINUE TO MONITOR.
--- NOTE | 2017-05-09 13:06 | NUR ---
CM NOTE RECEIVED QUOTE FROM ALICIA FROM [facility]. [facility] TRANSPORT TO [facility] WILL BE $106. SPOKE W/ [place], SON RE. TRANSPORT. OK WITH PAYING FOR TRANSPORT.
--- NOTE | 2017-05-09 13:15 | NUR ---
CM NOTE PATIENT PLACED ON WILL-CALL W/ [facility]. PLEASE CALL [phone] TO ACTIVATE WILL-CALL.
--- NOTE | 2017-05-09 13:33 | NUR ---
RECEIVED NEW ORDER FROM DR LOMELI TO D/C CLAUDIA AND DO BLADDER SCAN IN 3 HOURS TO CHECK IF PATIENT IS PRODUCING URINE. NOTED, WILL CARRY OUT.
--- NOTE | 2017-05-09 13:55 | NUR ---
D/C'D TAYLOR CATHETER, PT TOLERATED WELL. TURNED PATIENT TO HER RIGHT SIDE, KEPT PRESSURE OFF OF BONY AREAS AND FLOATED HEELS, SCD'S IN PLACE. BED IN LOW POSITION WITH BILATERAL HALF SIDE RAILS UP, SAFETY CHECKS IN PLACE, CALL LIGHT WITHIN REACH.
--- NOTE | 2017-05-09 13:57 | NUR ---
RECEIVED NEW ORDER FOR DISCHARGE FROM DR LOMELI, NOTED, WILL CARRY OUT.
--- NOTE | 2017-05-09 14:00 | NUR ---
PT DISCHARGE PHOTOGRAPH TAKEN OF SACRAL WOUND.
[2017-05-09] MEDS ORDERED: LEVO500T22 PO (14:05)
[2017-05-09] MEDS ORDERED: MECL-272 PO (14:05)
--- NOTE | 2017-05-09 14:16 | NUR ---
CM NOTE WILL CALL RELEASED; PATIENT TO BE PICKED UP VIA GURNEY BY [facility] GOING TO [facility] ([phone]). ETA 1830. OSKAR FOREMAN & WANDA RN MADE AWARE.
--- NOTE | 2017-05-09 14:50 | NUR ---
GAVE REPORT TO CHRISTINA AT [facility] AND INFORMED OF TRANSPORT BY WITH PICKUP TIME HERE AT 1830. CHRISTINA SAID THEY WILL AWAIT FOR ARRIVAL OF PATIENT. WILL CONTINUE TO MONITOR.
--- NOTE | 2017-05-09 15:01 | NUR ---
INFORMED SON, [place] SHAFFER OF PATIENTS DISCHARGE AND TRANSFER TO [facility] AT 1830.
--- NOTE | 2017-05-09 15:55 | NUR ---
BLADDER SCAN SHOWED 127ML URINE, REPORTED TO DR LOMELI AND DR LEHMAN. WILL CONTINUE TO MONITOR.
[2017-05-09 16:00] VITALS: BP 103/59
--- NOTE | 2017-05-09 17:17 | NUR ---
PT RESTING IN BED COMFORTABLY, PT VOIDED X1, INFORMED DR LEHMAN, WILL CONTINUE TO MONITOR.
--- NOTE | 2017-05-09 18:10 | NUR ---
RECEIVED CALL FROM [facility] TO NOTIFY THAT THEY ARE RUNNING 60 TO 90 MINUTES LATE FOR PICKUP. SHOULD ARRIVE BETWEEN 1929 AND 1999. NOTED, WILL ENDORSE TO CANAL STRUCTURE OPERATOR NURSE AT CHANGE OF SHIFT. WILL CONTINUE TO MONITOR PATIENT.
--- NOTE | 2017-05-09 18:20 | NUR ---
INFORMED PATIENT OF TRANSPORTATION DELAY, PT UNABLE TO COMPREHEND. PATIENT RESTING COMFORTABLY IN BED. PRESSURE OFF LOADED FROM BONY PROMINENCES, HEELS FLOATED. BED IN LOW POSITION WITH BILATERAL HALF SIDE RAILS UP, CALL LIGHT WITHIN REACH. WILL CONTINUE TO MONITOR.
--- NOTE | 2017-05-09 18:51 | NUR ---
PT RESTING COMFORTABLY IN BED, NO SIGNS OF ACUTE DISTRESS. BOWEL SOUNDS ACTIVE IN ALL 4 QUADRANTS. BOWEL AND BLADDER INCONTINENCE. SACRAL WOUND COVERED WITH DRY DRESSING. BEDBOUND. FLACC SCORE 0. BED IN LOW POSITION WITH BILATERAL HALF SIDE RAILS UP, CALL LIGHT WITHIN REACH. WILL CONTINUE TO MONITOR.
--- NOTE | 2017-05-09 19:06 | NUR ---
PT RESTING COMFORTABLY IN BED, NO SIGNS OF ACUTE DISTRESS. ENDORSED TO BERTRAM BELL, FOR CONTINUITY OF CARE.
--- NOTE | 2017-05-09 19:30 | NUR ---
RECEIVED REPORT FROM DAY RN AT BEDSIDE, PT IS RESTING IN BED, AWAITING PICKUP FROM , CRICKET 2030, PT AAOX1 APHASIC, NO SIGN OF DISTRESS, ON ROOM AIR, NO SOB OR SIGN OF DISTRESS AT THIS TIME, IV INTACT, ALL PAPERWORK SIGNED. WILL AWAIT NON DESTRUCTIVE EVALUATION SPECIALIST.
--- NOTE | 2017-05-09 20:23 | NUR ---
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 PATIENT IN STABLE CONDITION. PAPERWORK SIGNED.
== END 2017-05-09 20:22 | disposition home or self-care (01) | DRG 871 ==
LOC: MED 17:30 → MTU 20:21
PROVIDERS: ADMIT Student in an Organized Health Care Education/Training Program; ATTEND Student in an Organized Health Care Education/Training Program
DX: A41.9 Sepsis, unspecified organism (principal); G93.41 Metabolic encephalopathy; J69.0 Pneumonitis due to inhalation of food and vomit; I50.43 Acute on chronic combined systolic (congestive) and diastolic (congestive) heart failure; N17.0 Acute kidney failure with tubular necrosis; I21.4 Non-ST elevation (NSTEMI) myocardial infarction; N39.0 Urinary tract infection, site not specified; E44.0 Moderate protein-calorie malnutrition; D68.59 Other primary thrombophilia; I42.0 Dilated cardiomyopathy; I69.351 Hemiplegia and hemiparesis following cerebral infarction affecting right dominant side; Z66 Do not resuscitate; I11.0 Hypertensive heart disease with heart failure; Z60.2 Problems related to living alone; G90.9 Disorder of the autonomic nervous system, unspecified; E83.42 Hypomagnesemia; E02 Subclinical iodine-deficiency hypothyroidism; E78.5 Hyperlipidemia, unspecified; I48.2 Chronic atrial fibrillation; M16.0 Bilateral primary osteoarthritis of hip; M17.0 Bilateral primary osteoarthritis of knee; E87.6 Hypokalemia; I25.10 Atherosclerotic heart disease of native coronary artery without angina pectoris; R73.03 Prediabetes; I07.1 Rheumatic tricuspid insufficiency; L89.151 Pressure ulcer of sacral region, stage 1; Z79.82 Long term (current) use of aspirin; Z79.899 Other long term (current) drug therapy; I69.322 Dysarthria following cerebral infarction; Z95.818 Presence of other cardiac implants and grafts; Z68.21 Body mass index [BMI] 21.0-21.9, adult; I69.320 Aphasia following cerebral infarction
CPT/HCPCS: 36415; 36600; 70450; 71010; 80048; 80053; 80305; 81001; 82150; 82803; 83036; 83605; 83690; 83735; 83880; 84100; 84436; 84439; 84443; 84479; 84484; 85025; 85610; 85730; 87040; 87081; 87086; 92526; 93005; 93880; 94640; 96365; 99285; J0696; J2543; J3475; J3490; J7030; J7060; J7613; J7620; J7626; J7644; Q0092

== ENCOUNTER 2017-08-23 23:31 | Inpatient (IN) | payer OTHER, BC ==
[~2017-08-23] VITALS: Ht 172.7 cm; Wt 54.4 kg
[~2017-08-23 23:31] MED LIST changes: -CARV3.12 PO; -CIPR500T4 PO; +LEVO500T2 PO; +MECL-272 PO
[2017-08-23 23:32] VITALS: BP 136/74
--- NOTE | 2017-08-23 23:32 | NUR ---
BIBA TO ER BED 3
--- NOTE | 2017-08-23 23:32 | NUR ---
81 Y/O F REE FROM [facility] W/C/O SOB. 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
[2017-08-23] MEDS ORDERED: ASCO500T45 PO (23:52)
[2017-08-23] MEDS ORDERED: FERR325E14 PO (23:52)
[2017-08-23] MEDS ORDERED: ACET-7568 PO (23:52)
[2017-08-23] MEDS ORDERED: CLOP75TA55 PO (23:52)
[2017-08-23] MEDS ORDERED: CARV3.12 PO (23:52)
[2017-08-23] MEDS ORDERED: TRAM50TA1 PO (23:52)
[2017-08-23] MEDS ORDERED: DOCU-299 PO (23:52)
[2017-08-23] MEDS ORDERED: ACET-787 PO (23:52)
[2017-08-23] MEDS ORDERED: NACL 0.9% 1,000 ML IV ONE (23:55)
[2017-08-24 00:36] LABS: HEMATOCRIT 38.6 % (36-48); HEMOGLOBIN 12.5 g/dL (12.0-16.0); MEAN CORPUSCULAR HEMOGLOBIN 27 pg (27-31); MEAN CORPUSCULAR HGB CONC 32 g/dL (33-37); MEAN CORPUSCULAR VOLUME 83 fL (80-94); PLATELET COUNT (AUTO) 212 K/uL (140-450); RED BLOOD CELL COUNT(AUTO) 4.68 MIL/uL (4.20-5.40); RED CELL DISTRIBUTION WIDTH 15.8 % (11.6-13.7); WHITE BLOOD COUNT (AUTO) 8.2 K/uL (4.8-10.8)
[2017-08-24 00:46] LABS: EOSINOPHILS % (MANUAL) 2 % (0-4); LYMPHOCYTES % (MANUAL) 24 % (20-46); MONOCYTES % (MANUAL) 4 % (5-12)
[2017-08-24 00:49] LABS: PROTHROMBIN TIME 10.6 secs (10.8-13.4)
[2017-08-24 00:53] LABS: ALBUMIN 2.7 g/dL (3.4-5.0); ANION GAP 11.3 (8-16); ASPARTATE AMINOTRANSFERASE 19 U/L (15-37); CARBON DIOXIDE 26.2 mmol/L (21-32); CHLORIDE 110 mmol/L (98-107); CREATININE 0.6 mg/dL (0.6-1.3); GLUCOSE 97 mg/dL (74-106); POTASSIUM 3.5 mmol/L (3.5-5.1); SODIUM SERUM 144 mmol/L (136-145); TOTAL BILIRUBIN 0.2 mg/dL (0.0-1.0); UREA NITROGEN, BLOOD 16 mg/dL (7-18)
--- NOTE | 2017-08-24 00:54 | NUR ---
PT RESTING IN BED, ON FLOOR CASHIER. NO S/S OF DISTRESS NOTED AT THIS MOMENT. PT DENIES ANY PAIN. WILL CONT TO MONITOR.
--- NOTE | 2017-08-24 00:57 | NUR ---
Patient noted to have existing wound TO COCCYX AREA upon arrival to ER.Wound covered with dressing. Physician informed.
[2017-08-24 01:01] LABS: APPEARANCE,URINE CLOUDY (CLEAR); BILIRUBIN,URINE NEGATIVE (NEGATIVE); BLOOD, URINE 3+ (NEGATIVE); LEUKOCYTE ESTERASE ,URINE 3+ (NEGATIVE); NITRITE, URINE NEGATIVE (NEGATIVE); PH,URINE 7.5 (5.0-9.0); UGLUCOSE NEGATIVE (NEGATIVE)
[2017-08-24 01:04] LABS: COLOR,URINE YELLOW (YELLOW)
[2017-08-24 01:11] LABS: RBC,URINE 50-80 /HPF (0-5); WBC,URINE 20-60 /HPF (0-5)
[2017-08-24 01:12] LABS: TRIPLE PHOSPHATE CRYSTAL,UR 0-10 /HPF (None Seen)
--- NOTE | 2017-08-24 01:14 | NUR ---
Patient will be admitted to care of DR REY. Admited to TELEMETRY. Will go to room 108. Belongings list completed. Report to ARABELLA MALCOLM.
--- NOTE | 2017-08-24 01:25 | NUR ---
PT TRASFERED TO FLOOR VIA [employer]. MONITOR IN BED, ACCOMPANIED BY PRIMARY NURSE AND CHARGE NURSE.
[2017-08-24 01:32] LABS: CHOL/HDL RATIO 2.6 (1-4.5); FREE T4 (FREE THYROXINE) 1.02 ng/dL (0.76-1.46); MAGNESIUM 1.4 mg/dL (1.8-2.4); THYROID STIMULATING HORMONE 7.11 uIU/mL (0.34-3.74)
[2017-08-24] MEDS ORDERED: NITROGLYCERIN 2% 1 GM PKT TP ONE (01:35)
[2017-08-24] MEDS ORDERED: FUROSEMIDE 40 MG/4 ML VIAL IVP ONE (01:35)
[2017-08-24] MEDS ORDERED: LEVOFLOXACIN 500 MG/D5W PREMIX 100 ML IV ONE (01:35)
[2017-08-24] MEDS ORDERED: MECLIZINE 25 MG TAB PO PRN (01:40)
--- NOTE | 2017-08-24 01:40 | NUR ---
PT ARRIVED VIA GURNEY ACCOMPANIED BY ER NURSE, PT IS A/OX4, ON ROOM AIR, NONVERBAL. PT HAS A LEFT FOREARM IV 20G INFUSING NS@100ML/HR. 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 SAFETY PRECAUTIONS IN PLACE. PT WEARING BRACELET AND NECKLACE, BOLD LOOK LIKE MADE OUT OF GOLD, PT WANTS TO KEEP THEM ON. UPDATED BOARD. DISCUSSED PLAN OF CARE WITH PT, PT NODDED IN AGREEMENT. VITAL SIGNS WITHIN NORMAL LIMITS. PT IN STABLE CONDITION, NO SIGNS OF DISTRESS NOTED. BED IN LOW POSITION, CALL LIGHT WITHIN REACH. WILL CONTINUE TO MONITOR.
--- NOTE | 2017-08-24 01:59 | NUR ---
WOUND CULTURE COLLECTED AT BEDSIDE. PT TOLERATED WELL.
[2017-08-24] MEDS ORDERED: ACETAMINOPHEN 325 MG TAB PO PRN (02:00)
[2017-08-24] MEDS ORDERED: ONDANSETRON 4 MG/2 ML VIAL IVP PRN (02:00)
[2017-08-24] MEDS ORDERED: HYDROcodone/APAP 7.5/325 MG 1 TAB PO PRN (02:00)
[2017-08-24 02:20] VITALS: BP 136/82
[2017-08-24] MEDS ORDERED: MAG SULF 2000 MG/WATER PREMIX 50 ML IV ONE (02:30)
--- NOTE | 2017-08-24 03:35 | NUR ---
REPOSITIONED AND CLEANED PT WITH HELP FROM PRESIDING JUDGE, PT TOLERATED WELL. PT IN STABLE CONDITION, NO SIGNS OF DISTRESS NOTED. BED IN LOW POSITION, CALL LIGHT WITHIN REACH. WILL CONTINUE TO MONITOR.
--- NOTE | 2017-08-24 04:00 | NUR ---
PERCUSSION INSTRUMENT REPAIRER APPLIED SCD'S TO PT. PT TOLERATING WELL. PT IN STABLE CONDITION, NO SIGNS OF DISTRESS NOTED. BED IN LOW POSITION, CALL LIGHT WITHIN REACH. WILL CONTINUE TO MONITOR.
--- NOTE | 2017-08-24 06:00 | NUR ---
REPOSITIONED AND CLEANED PT WITH HELP FROM AUTO BODY DETAILER, PT TOLERATED WELL. PT IN STABLE CONDITION, NO SIGNS OF DISTRESS NOTED. BED IN LOW POSITION, CALL LIGHT WITHIN REACH. WILL CONTINUE TO MONITOR.
--- NOTE | 2017-08-24 07:05 | NUR ---
ENDORSED PT TO DAY SHIFT RN FOR CONTINUITY OF CARE. PT IN STABLE CONDITION WITH NO SIGNS OF DISTRESS.
--- NOTE | 2017-08-24 07:10 | NUR ---
RECEIVED REPORT FROM ARABELLA MALCOLM. PT IS RESTING IN BED, SEMI FOWLERS POSITION, PT IS A/OX4, BEDREST, IV IS ON THE LEFT AC, PATENT, INTACT, FLUSHING WELL, PT HAS SACRAL ULCER, NO S/S OF RESPIRATORY DISTRESS OR DISCOMFORT NOTED, DISCUSSED PLAN OF CARE WITH PT, PT VERBALIZED UNDERSTANDING, SAFETY/FALL PRECAUTIONS ARE IN PLACE, CALL LIGHT WITHIN PATIENT'S REACH, WILL CONTINUE TO MONITOR.
[2017-08-24 07:11] LABS: HEMATOCRIT 39.2 % (36-48); HEMOGLOBIN 12.9 g/dL (12.0-16.0); MEAN CORPUSCULAR HEMOGLOBIN 27 pg (27-31); MEAN CORPUSCULAR HGB CONC 33 g/dL (33-37); MEAN CORPUSCULAR VOLUME 82 fL (80-94); PLATELET COUNT (AUTO) 203 K/uL (140-450); RED CELL DISTRIBUTION WIDTH 15.7 % (11.6-13.7); WHITE BLOOD COUNT (AUTO) 9.1 K/uL (4.8-10.8)
[2017-08-24 07:52] LABS: EOSINOPHILS % (MANUAL) 1 % (0-4); LYMPHOCYTES % (MANUAL) 15 % (20-46); MONOCYTES % (MANUAL) 5 % (5-12)
[2017-08-24 08:00] VITALS: BP 107/74
[2017-08-24] MEDS ORDERED: NON-FORMULARY ITEM (L. Acidophilus/L.bulgaricus (Lactinex Chewable Tablet) 1.4 MG) PO SCH (08:00)
[2017-08-24] MEDS: ASPIRIN 81 MG TAB.CHEW PO SCH (08:20)
[2017-08-24] MEDS: DOCUSATE SODIUM 100 MG GELCAP PO SCH ×4 (08:20→20:34)
--- NOTE | 2017-08-24 08:20 | NUR ---
DUE MEDICATIONS GIVEN, PT TOLERATED WELL, CALL LIGHT WITHIN REACH, WILL CONTINUE TO MONITOR.
[2017-08-24] MEDS: CLOPIDOGREL 75 MG TAB PO SCH (08:21)
[2017-08-24] MEDS: MULTIVITAMIN 1 TAB PO SCH (08:21)
[2017-08-24] MEDS: LACTOBACILLUS RHAMNOSUS GG 1 EACH CAP PO SCH (08:21)
[2017-08-24] MEDS: ASCORBIC ACID 500 MG TAB PO SCH ×2 (08:21→20:34)
[2017-08-24] MEDS: FERROUS SULFATE 325 MG TABEC PO SCH (08:21)
[2017-08-24] MEDS: CARVEDILOL 3.125 MG TAB PO SCH ×2 (08:22→20:38)
--- NOTE | 2017-08-24 10:02 | NUR ---
REPOSITIONED PT IN BED FOR COMFORT, ALL NEEDS MET AT THIS TIME, CALL LIGHT WITHIN REACH.
--- NOTE | 2017-08-24 11:42 | NUR ---
PT SLEEPING IN BED AT THIS TIME, CALL LIGHT IS WITHIN REACH.
[2017-08-24 12:00] VITALS: BP 115/71
[2017-08-24] MEDS: CLINDAMYCIN 600 MG in DEXTROSE 5% 50 ML IV SCH ×2 (12:05→17:18)
--- NOTE | 2017-08-24 12:20 | NUR ---
PT SLEEPING IN BED AT THIS TIME, CALL LIGHT IS WITHIN REACH, ANTIBIOTIC PIGGYBACK HUNG, WILL CONTINUE TO MONITOR.
--- NOTE | 2017-08-24 14:10 | NUR ---
PT IS RESTING IN BED, WATCHING TV, NO S/S OF RESPIRATORY DISTRESS OR DISCOMFORT NOTED, CALL LIGHT WITHIN REACH.
[2017-08-24 16:00] VITALS: BP 102/57
--- NOTE | 2017-08-24 16:15 | NUR ---
REPOSITIONED PT FOR COMFORT, CALL LIGHT WITHIN REACH.
--- NOTE | 2017-08-24 18:32 | NUR ---
PATIENT SITTING UP IN BED, DRINKING COFFEE WITH LUBRICATING ENGINEER'S ASSISTANCE.
--- NOTE | 2017-08-24 19:12 | NUR ---
ENDORSED PT TO NEWSPAPER DELIVERY COUNSELOR NURSE FOR CONTINUITY OF CARE, PT STABLE AT THIS TIME.
--- NOTE | 2017-08-24 19:13 | NUR ---
RECEIVED REPORT FROM DAY SHIFT RN AT PT BEDSIDE. PT IS A/OX4, ON ROOM AIR, NONVERBAL. PT HAS A LEFT FOREARM IV 20G INFUSING NS@10ML/HR TKO. 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 SACRAL PRESSURE ULCER PRESENT, AND PT IS ON CONTACT PRECAUTIONS. SAFETY PRECAUTIONS IN PLACE. UPDATED BOARD. DISCUSSED PLAN OF CARE WITH PT, PT NODDED IN AGREEMENT. VITAL SIGNS WITHIN NORMAL LIMITS. PT IN STABLE CONDITION, NO SIGNS OF DISTRESS NOTED. BED IN LOW POSITION, CALL LIGHT WITHIN REACH. WILL CONTINUE TO MONITOR.
[2017-08-24 20:00] VITALS: BP 95/53
[2017-08-24] MEDS: ATORVASTATIN 20 MG TAB PO SCH (20:35)
--- NOTE | 2017-08-24 20:38 | NUR ---
ADMINISTERED SCHEDULED MEDICATIONS, PT TOLERATED WELL. HELD CARVEDILOL BECAUSE PT BP IS 95/53. PT IN STABLE CONDITION, NO SIGNS OF DISTRESS NOTED. BED IN LOW POSITION, CALL LIGHT WITHIN REACH. WILL CONTINUE TO MONITOR.
[2017-08-25] VITALS: BP 106/65
[2017-08-25 04:00] VITALS: BP 102/61
[2017-08-25] MEDS: CLINDAMYCIN 600 MG in DEXTROSE 5% 50 ML IV SCH ×5 (06:03→18:30)
[2017-08-25 06:22] LABS: HEMATOCRIT 36.8 % (36-48); MEAN CORPUSCULAR HEMOGLOBIN 27 pg (27-31); MEAN CORPUSCULAR HGB CONC 33 g/dL (33-37); MEAN CORPUSCULAR VOLUME 82 fL (80-94); PLATELET COUNT (AUTO) 143 K/uL (140-450); RED BLOOD CELL COUNT(AUTO) 4.46 MIL/uL (4.20-5.40); RED CELL DISTRIBUTION WIDTH 15.6 % (11.6-13.7); WHITE BLOOD COUNT (AUTO) 8.8 K/uL (4.8-10.8)
[2017-08-25 06:34] LABS: ANION GAP 10.3 (8-16); CARBON DIOXIDE 28.3 mmol/L (21-32); CHLORIDE 106 mmol/L (98-107); CREATININE 0.8 mg/dL (0.6-1.3); GLUCOSE 100 mg/dL (74-106); POTASSIUM 3.6 mmol/L (3.5-5.1); SODIUM SERUM 141 mmol/L (136-145); UREA NITROGEN, BLOOD 18 mg/dL (7-18)
[2017-08-25 06:40] LABS: LYMPHOCYTES % (MANUAL) 29 % (20-46)
[2017-08-25 06:41] LABS: MONOCYTES % (MANUAL) 8 % (5-12)
[2017-08-25 06:52] LABS: MAGNESIUM 1.9 mg/dL (1.8-2.4); PHOSPHORUS 3.9 mg/dL (2.5-4.9)
--- NOTE | 2017-08-25 07:05 | NUR ---
ENDORSED PT TO DAY SHIFT RN FOR CONTINUITY OF CARE. PT IN STABLE CONDITION.
--- NOTE | 2017-08-25 07:06 | NUR ---
RECEIVED REPORT FROM PLASTER CASTER NURSE. PATIENT IN STABLE CONDITION, NO DISTRESS NOTED. DENIES ANY PAIN AT THIS TIME. RESPIRATIONS EVEN, UNLABORED. AAOX4, SKIN COLOR APPROPRIATE TO ETHNICITY, WARM TO TOUCH, NO PERIPHERAL EDEMA NOTED. SACRAL WOUND DRESSING DRY AND INTACT. TELE MONITOR ON PATIENT AND IS FUNCTIONING. IV IS INTACT, PATENT, AND INFUSING. LUNGS CTA ON ALL LOBES, GENERALIZED WEAKNESS THROUGHOUT BODY NOTED. PLAN OF CARE REVIEWED WITH PATIENT. PATIENT VERBALIZED UNDERSTANDING. SAFETY MEASURES IN PLACE, FALL PRECAUTIONS IN PLACE, CALL LIGHT WITHIN REACH. WILL CONTINUE TO MONITOR.
[2017-08-25 08:00] VITALS: BP 115/65
--- NOTE | 2017-08-25 08:51 | NUR ---
PATIENT HAS BEEN SCREENED AND CATEGORIZED HIGH NUTRITION RISK. PATIENT WILL BE SEEN WITHIN 1-2 DAYS OF ADMISSION. 08/24/17 -08/25/[address]
--- NOTE | 2017-08-25 09:06 | NUR ---
REASON FOR EVALUATION: PRESSURE ULCER SACRALCOCCYX COMPLETE SKIN ASSESSMENT DONE ON THIS 81 Y/O FMALE PATIENT FROM [facility], WITH INITIAL DIAGNOSIS OF SOB. PAST MEDICAL HISTORY INCLUDE HTN, CAD, CVA, DJD, HYPERLIPIDEMIA. ALL ABOVE INFORMATION WAS OBTAINED FROM THE ADMISSION H&P. LABS ARE WBC 8.8, H/H 12.0/36.8, GLUCOSE 100 AND ALBUMIN 2.7. CURRENT MEDS INCLUDE CLINDAMYCIN, ATORVASTATIN,CARVEDILOL AND FERROUS SULFATE. PATIENT IS AWAKE, CONFUSED, ABLE TO FOLLOW SIMPLE COMMANDS. HX OF CVA WITH RIGHT SIDE HEMIPLEGIA, SKIN WARM TO TOUCH WNL, TOENAILS ARE SLIGHTLY THICKENED, NO EDEMA,, WITH FEW HAIR GROWTH AND BILATERAL PEDAL PULSES PRESENT. URINE AND BOWEL INCONTINENT. NEEDS MAX ASSISTANCE IN TURNING. PLAN OF CARE AND PRESSURE PREVENTIVE MEASURES DISCUSSED WITH PRIMARY RN. INTEGUMENTARY: SACRALCOCCYX ST III PRESSURE ULCER- 2.5X2X1 CM 10% YELLOW SLOUGH, 90% RED ON WOUND BED. WITH PW REDNESS MEASURE 6X7CM INDICATED FURTHER DAMAGE. ALL EXTRIMITIES DRYNESS LLE MULTIPLE DRY SCABS LARGEST MEASURES 0.5X1 CM RIGHT AND LEFT HEELS - BLANCHABLE REDNESS RECOMMENDATIONS: -SACRALCOCCYX PRESSURE ULCER STAGE III : CLEANSE WITH NS, PAT DRY, APPLY THERAHONEY WITH ADAPTIC DRESSING TO WOUND BED, APPLY Z GUARD TO HINA WOUND, COVER WITH DRY DRESSING AND SECURE WITH TAPE QD AND PRN WITH SOILING. -APPLY HYDRAGUARD TO ALL EXTREMITIES DRYNESS AREA QD , MELI -TURN AND REPOSITION PATIENT Q2H TO LEFT AND RIGHT SIDE ONLY TO OFFLOAD SACRALCOCCYX, WITH THE EXCEPTION DURING MEALTIMES. -ASSESS AND MONITOR SKIN CONDITION DURING POSITION CHANGE, PLEASE PAY PARTICULAR ATTENTION TO SACRALCOCCYX, ELBOWS AND HEELS -OFFLOAD BILATERAL HEELS BY PLACING PILLOWS UNDER CALVES AT ALL TIMES, UNLESS OTHERWISE CONTRAINDICATED -KEEP SKIN CLEAN AND DRY AT ALL TIMES. -PRESSURE REDISTRIBUTION SURFACE THERAPY. -RD CONSULT COMORBIDITIES RELATED TO SKIN BREAKDOWN: CHRONIC URINARY AND BOWEL INCONTINENT, IMPAIRED MOBILITY, AGE, LOW ALBUMIN LEVEL RECOMMENDATIONS DISCUSSED WITH PRIMARY RN AND DR. MILNER WILL FOLLOW UP PATIENT Q7 -10 DAYS AND PRN. PLEASE CONTACT WOUND CARE NURSE FOR ANY QUESTIONS AND CHANGES IN WOUND CONDITION.
[2017-08-25] MEDS ORDERED: Z-GUARD PASTE TP SCH (09:40)
[2017-08-25] MEDS ORDERED: Z-GUARD PASTE TP PRN (09:45)
[2017-08-25] MEDS ORDERED: THERAHONEY GEL 42.5 GM TP PRN (09:45)
[2017-08-25] MEDS: ASCORBIC ACID 500 MG TAB PO SCH ×3 (09:50→21:00)
[2017-08-25] MEDS: FERROUS SULFATE 325 MG TABEC PO SCH (09:50)
[2017-08-25] MEDS: DOCUSATE SODIUM 100 MG GELCAP PO SCH ×3 (09:51→21:00)
[2017-08-25] MEDS: CLOPIDOGREL 75 MG TAB PO SCH (09:51)
[2017-08-25] MEDS: CARVEDILOL 3.125 MG TAB PO SCH ×2 (09:51→20:48)
[2017-08-25] MEDS: ASPIRIN 81 MG TAB.CHEW PO SCH (09:52)
[2017-08-25] MEDS: MULTIVITAMIN 1 TAB PO SCH (09:52)
[2017-08-25] MEDS: LACTOBACILLUS RHAMNOSUS GG 1 EACH CAP PO SCH (09:52)
--- NOTE | 2017-08-25 09:55 | NUR ---
PATIENT LYING IN BED WATCHING TV. NO DISTRESS NOTED. RESPIRATIONS EVEN, UNLABORED, ON ROOM AIR. DENIES ANY PAIN AT THIS TIME. MEDICATIONS DUE GIVEN. SACRAL PRESSURE ULCER WOUND DRESSING WAS CHANGED BY WOUND NURSEMADIE AT 0900. DRESSING IS DRY AND INTACT. ASSISTED ASSEMBLER SHOW MOTOR WITH PATIENT CLEANUP. PATIENT TOLERATED WELL. SAFETY MEASURES IN PLACE, FALL PRECAUTIONS IN PLACE, CALL LIGHT WITHIN REACH. WILL CONTINUE TO MONITOR.
--- NOTE | 2017-08-25 11:50 | NUR ---
PATIENT LYING IN BED COMFORTABLY WATCHING TV. NO DISTRESS NOTED. DENIES ANY PAIN. RESPIRATIONS EVEN, UNLABORED. MEDICATIONS DUE GIVEN. SAFETY MEASURES IN PLACE, CALL LIGHT WITHIN REACH. WILL CONTINUE TO MONITOR.
[2017-08-25 12:00] VITALS: BP 101/69
--- NOTE | 2017-08-25 12:05 | NUR ---
08/25/17 RD INITIAL ASSESSMENT COMPLETED PLEASE REFER TO NUTRITION ASSESSMENT UNDER CARE ACTIVITY FOR ESTIMATED NUTRITIONAL NEEDS. 1. CONTINUE CARDIAC, MECHANICAL SOFT DIET TOLERATED PER MD 2. ENCOURAGE INCREASED PO INTAKES --PT CURRENTLY ONLY CONSUMING <35% OF ESTIMATED KCAL AND PROTEIN NEEDS 3. RD TO ADD HEALTHSHAKES TID FOR ADDITIONAL 900 KCAL AND 27 GM PROTEIN TO PROMOTE WEIGHT GAIN AND WOUND HEALING. 4. RD TO FOLLOW-UP 3-5 DAYS, MODERATE RISK GENTRY ALEMAN RD
[2017-08-25] MEDS ORDERED: NON ADHERENT DRESSING TP SCH (13:00)
[2017-08-25] MEDS ORDERED: THERAHONEY GEL 42.5 GM TP SCH (13:00)
[2017-08-25] MEDS ORDERED: DRY DRESSING TP SCH (13:00)
[2017-08-25] MEDS ORDERED: HYDRAGUARD CREAM TP SCH (13:00)
[2017-08-25] MEDS: HYDRAGUARD CREAM TP SCH (13:16)
[2017-08-25] MEDS: Z-GUARD PASTE TP SCH (13:17)
[2017-08-25] MEDS: THERAHONEY GEL 42.5 GM TP SCH (13:17)
--- NOTE | 2017-08-25 13:30 | NUR ---
PATIENT LYING IN BED WATCHING TV. NO DISTRESS NOTED. DENIES ANY PAIN AT THIS TIME. RESPIRATIONS EVEN, UNLABORED, ON ROOM AIR. PERFORMED WOUND CARE ON SACRAL PRESSURE ULCER PER ORDERS. MEDICATIONS DUE GIVEN. ASSISTED SHOP MANAGER IN CLEAN UP OF PATIENT. PATIENT TOLERATED WELL. SAFETY MEASURES IN PLACE, CALL LIGHT WITHIN REACH, FALL PREVENTIONS IN PLACE. WILL CONTINUE TO MONITOR.
--- NOTE | 2017-08-25 14:19 | NUR ---
PATIENT IS SLEEPING. NO DISTRESS NOTED. RESPIRATIONS EVEN, UNLABORED, ON ROOM AIR. SKIN COLOR APPROPRIATE TO ETHNICITY. SAFETY MEASURES IN PLACE, CALL LIGHT WITHIN REACH. WILL CONTINUE TO MONITOR.
--- NOTE | 2017-08-25 15:26 | NUR ---
LABORATORY CALLED AND REPORTED PRELIMINARY RESULTS OF MRSA POSITIVE CULTURES ON SACRAL WOUND. PATIENT PUT ON CONTACT PRECAUTIONS, SIGNS POSTED. DID NOT NOTIFY MD DUE TO PRELIMINARY RESULTS. WILL CONTINUE TO MONITOR.
[2017-08-25 16:00] VITALS: BP 92/55
--- NOTE | 2017-08-25 18:25 | NUR ---
PATIENT LYING IN BED WATCHING TV. NO DISTRESS NOTED. RESPIRATIONS EVEN, UNLABORED, ON ROOM AIR. MEDICATIONS DUE GIVEN. PATIENT PLACED ON AIR MATTRESS BED THAT JUST ARRIVED PER MD ORDERS. IV INTACT, PATENT, AND INFUSING. SAFETY MEASURES IN PLACE, CALL LIGHT WITHIN REACH. WILL CONTINUE TO MONITOR.
--- NOTE | 2017-08-25 19:29 | NUR ---
GAVE REPORT TO ACADEMIC RECORDS SPECIALIST NURSE FOR CONTINUITY OF CARE. PATIENT IN STABLE CONDITION.
--- NOTE | 2017-08-25 19:30 | NUR ---
RECEIVED REPORT FROM DAY SHIFT RN AT PT BEDSIDEFOR CONTINUITY OF CARE. PT IS A/OX4, ON ROOM AIR, NONVERBAL. PT HAS A LEFT FOREARM IV 20G INFUSING NS@10ML/HR TKO. 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 SACRAL PRESSURE ULCER PRESENT, AND PT IS ON CONTACT PRECAUTIONS. SAFETY PRECAUTIONS IN PLACE. UPDATED BOARD. DISCUSSED PLAN OF CARE WITH PT, PT NODDED IN AGREEMENT. VITAL SIGNS WITHIN NORMAL LIMITS. PT IN STABLE CONDITION, NO SIGNS OF DISTRESS NOTED. BED IN LOW POSITION, CALL LIGHT WITHIN REACH. WILL CONTINUE TO MONITOR.
[2017-08-25 20:00] VITALS: BP 103/66
[2017-08-25] MEDS: ATORVASTATIN 20 MG TAB PO SCH ×2 (20:47→21:00)
--- NOTE | 2017-08-25 21:08 | NUR ---
PT REFUSED ALL MEDICATIONS. EXPLAINED WHAT MEDICATIONS WERE FOR, BUT PT JUST TIGHTENED MOUTH AND SHOOK HER HEAD "NO." PT IN STABLE CONDITION, CALL LIGHT WITHIN REACH. BED IN LOW POSITION, NO SIGNS OF DISTRESS NOTED. WILL CONTINUE TO MONITOR.
[2017-08-26] VITALS: BP 113/67
[2017-08-26] MEDS: CLINDAMYCIN 600 MG in DEXTROSE 5% 50 ML IV SCH ×4 (00:13→17:06)
[2017-08-26 05:02] VITALS: BP 108/64
[2017-08-26 06:43] LABS: BASOPHILS # (AUTO) 0.2 K/uL (0.00-0.22); EOSINOPHILS # (AUTO) 0.2 K/uL (0-0.4); HEMATOCRIT 36.7 % (36-48); HEMOGLOBIN 11.8 g/dL (12.0-16.0); LYMPHOCYTES % (AUTO) 26.4 % (20.5-51.1); MEAN CORPUSCULAR HEMOGLOBIN 27 pg (27-31); MEAN CORPUSCULAR HGB CONC 32 g/dL (33-37); MEAN CORPUSCULAR VOLUME 83 fL (80-94); MONOCYTES # (AUTO) 0.6 K/uL (0.8-1.0); MONOCYTES % (AUTO) 7.5 % (1.7-9.3); NEUTROPHILS # (AUTO) 4.5 K/uL (1.8-7.7); NEUTROPHILS % (AUTO) 61.1 % (42.2-75.2); PLATELET COUNT (AUTO) 170 K/uL (140-450); RED BLOOD CELL COUNT(AUTO) 4.44 MIL/uL (4.20-5.40); RED CELL DISTRIBUTION WIDTH 15.4 % (11.6-13.7); WHITE BLOOD COUNT (AUTO) 7.5 K/uL (4.8-10.8)
[2017-08-26 06:55] LABS: ANION GAP 9.8 (8-16); CARBON DIOXIDE 28.6 mmol/L (21-32); CHLORIDE 106 mmol/L (98-107); CREATININE 0.8 mg/dL (0.6-1.3); GLUCOSE 91 mg/dL (74-106); POTASSIUM 3.4 mmol/L (3.5-5.1); SODIUM SERUM 141 mmol/L (136-145); UREA NITROGEN, BLOOD 19 mg/dL (7-18)
[2017-08-26 07:05] LABS: MAGNESIUM 1.6 mg/dL (1.8-2.4); PHOSPHORUS 3.8 mg/dL (2.5-4.9)
--- NOTE | 2017-08-26 07:26 | NUR ---
ENDORSED PT TO DAY SHIFT RN FOR CONTINUITY OF CARE. PT IN STABLE CONDITION.
--- NOTE | 2017-08-26 07:29 | NUR ---
RECEIVED PT IN BED. AWAKE. ALERT ORIENTED X4. NO SOB. DENIES ANY PAIN OR DISCOMFORT AT THIS TIME. PT ON BED REST SAFETY PRECAUTION IN PLACE. CALL LIGHT WITHIN REACH.
[2017-08-26 08:00] VITALS: BP 117/77
[2017-08-26] MEDS ORDERED: LEVOFLOXACIN 500 MG/D5W PREMIX 100 ML IV SCH (09:00)
[2017-08-26] MEDS ORDERED: Z-GUARD PASTE TP SCH (09:00)
[2017-08-26] MEDS: CARVEDILOL 3.125 MG TAB PO SCH ×2 (09:02→21:00)
[2017-08-26] MEDS: MULTIVITAMIN 1 TAB PO SCH (09:02)
[2017-08-26] MEDS: FERROUS SULFATE 325 MG TABEC PO SCH (09:02)
[2017-08-26] MEDS: ASPIRIN 81 MG TAB.CHEW PO SCH (09:03)
[2017-08-26] MEDS: DOCUSATE SODIUM 100 MG GELCAP PO SCH ×2 (09:03→21:00)
[2017-08-26] MEDS: ASCORBIC ACID 500 MG TAB PO SCH ×2 (09:03→21:00)
[2017-08-26] MEDS: CLOPIDOGREL 75 MG TAB PO SCH (09:03)
[2017-08-26] MEDS: LACTOBACILLUS RHAMNOSUS GG 1 EACH CAP PO SCH (09:03)
--- NOTE | 2017-08-26 10:17 | NUR ---
DR. ROJAS MADE AWARE OF POTASSIUM LEVEL 3.4 AND MAGNESIUM LEVEL 1.6.
[2017-08-26] MEDS ORDERED: POTASSIUM CHLORIDE 10 MEQ TABER PO SCH (10:30)
[2017-08-26] MEDS ORDERED: MAG SULF 2000 MG/WATER PREMIX 50 ML IV SCH (11:00)
--- NOTE | 2017-08-26 11:20 | NUR ---
CALLED ENDY FROM [facility]. SHE SAID THIS PATIENT IS IN THE ASSISTED LIVING SIDE AND HAS [facility]. ENDY SAID THAT IF THE PATIENT IS MRSA WOUND, THEY CANNOT TAKE THE PATIENT BACK BECAUSE THEY CANNOT TAKE CARE OF PATIENT'S WITH ISOLATION. SHE ALSO SAID THAT THE MRSA HAS TO BE COLONIZED. ALSO THEY CANNOT TAKE A PATIENT WITH STAGE 3 DECUBITUS, ONLY STAGE 2. SHE SAID THE DOCUMENTATION THERE SAID THE DECUBITUS WAS A STAGE 2. I CALLED THE SON, CHESTER, , AND INFORMED HIM THAT THE WOUND WAS STAPH PRELIMINARY AND PRESUMBED MRSA, BUT WE WERE WAITING FOR THE FINAL CULTURE RESULTS. I TOLD HIM IF THE PATIENT NEEDS ISOLATION , [facility] COULD NOT TAKE SOMEONE WITH ISOLATION.I ASKED HIM IF THE PATIENT NEEDED A SNF, WOULD HE BE AGREEABLE. HE SAID YES, AND THAT HIS GIRLFRIEND WILL BE LOOKING FOR ANOTHER SNF. HE WASN'T SURE HE WANTED HIS [place] [facility] Addendum: 08/26/17 at 1206 by Eva Bowie NOTED, NOT GIRLFRIEND. ALBINA IS OF [place].
[2017-08-26 12:00] VITALS: BP 120/76
[2017-08-26] MEDS: HYDRAGUARD CREAM TP SCH (12:58)
[2017-08-26] MEDS: THERAHONEY GEL 42.5 GM TP SCH (12:58)
[2017-08-26] MEDS: Z-GUARD PASTE TP SCH (12:58)
--- NOTE | 2017-08-26 13:00 | NUR ---
CONSENT FOR STAGE III SACRAL WOUND DEBRIDEMENT OBTAINED. TELEPHONE CONSENT OBTAINED FROM SON CHESTER SHAFFER PER DR. MILNER. CONSENT IN TO CHART.
--- NOTE | 2017-08-26 13:03 | NUR ---
SPOKE WITH ALBINA SHAFFER, DAUGHTER IN LAW. SHE SAID HER [place]STER ASKED HER TO SPEAK WITH ME ABOUT POS SNF AFTER DISCHARGE. SHE DIDN'T REQUEST A SNF LIST, BUT I TOLD HER THAT [facility] ALSO WAS NEAR HERE. SON DID SPEAK WITH DR. MILNER EXPRESSING SOME CONCERNS ABOUT WHETHER THE PATIENT HAS ANY SNF DAYS LEFT. [place] [facility] [place]OLD THAT THIS PATIENT LEFT THERE TO GO TO [facility] ON March. I CALLED [facility] AND SPOKE WITH ENDY AND SHE SAID THE PATIENT WAS NOT IN ANY SNF SINCE THAT TIME. PATIENT WAS ADMITTED HERE TO [facility] ON 05/05 AND DISCHARGED ON 05/09.
[2017-08-26] MEDS ORDERED: LIDOCAINE/EPI 2% 1:100000 20 ML VIAL INJ SCH (15:15)
[2017-08-26] MEDS ORDERED: HYDROmorphone 1 MG/ML AMP IVP SCH (15:45)
--- NOTE | 2017-08-26 15:57 | NUR ---
ORDER FOR DILAUDID 1 MG IVP GIVEN PER MD ORDER FOR THE STAGE III SACRAL WOUND DEBRIDEMENT PROCEDURE. DR. MILNER WITH PT FOR THE PROCEDURE.
[2017-08-26 16:00] VITALS: BP 104/55
--- NOTE | 2017-08-26 16:15 | NUR ---
PHOTO OF SACRAL WOUND S/P DEBRIDEMENT TAKEN AND IN TO CHART.
--- NOTE | 2017-08-26 18:37 | NUR ---
PT KEPT CLEAN, DRY AND COMFORTABLE, NEEDS ATTENDED, DRESSING ON SACRAL WOUND DRY AND INTACT. NO SOB NOTED. NO SIGNS AND SYMPTOMS OF ACUTE PAIN OR DISCOMFORT NOTED AT THIS TIME. WILL ENDORSE TO NEXT SHIFT, PT ON STABLE CONDITION, FOR CONTINUITY OF CARE.
--- NOTE | 2017-08-26 19:25 | NUR ---
RECEIVED PT IN STABLE CONDITION FROM AM NURSE. AWAKE BUT APHASIC. ON TELE MONITOR. BEDREST . WITH NO ACUTE DISTRESS NOTED. ON WOUND CARE BED. JED SCD ON BOTH LOWER LEGS. HAS LT FA IV ACCESS/ CLEAR AND PATENT. BED ON LOW POSITION. FREQUENT ROUNDS NEEDED. S/P DEBRIDEMENT OF SACRO COCCYGEAL WOUND. WITH DRESSING IN PLACED. CALL LIGHT PLACED WITHIN EASY REACH. WILL CONITNUE TO MONITOR.
[2017-08-26 19:50] VITALS: BP 124/76
--- NOTE | 2017-08-26 20:06 | NUR ---
2 2000 TELE MONITOR SHOWED HR SLOWING 42/MIN. CHECKED ON PT .HAD SOME EMESIS IN SCANTY AMOUNT. BUT PT NO S/S OF ANY DISTRESS NOTED. AT THIS TIME HR 94. WILL CONTINUE TO MONITOR.
--- NOTE | 2017-08-26 20:16 | NUR ---
CHECKED ON PT. TELE MONITOR SHOWED BACK TO CONTROLLED AFIB AT 77/MIN . NO DISTRESS NOTED . WILL CONTINUE TO MONITOR
[2017-08-26] MEDS: ATORVASTATIN 20 MG TAB PO SCH (21:00)
--- NOTE | 2017-08-26 22:30 | NUR ---
PT WAS REPOSITIONED FOR COMFORT. NO S/S OF ANY DISTRESS NOTED.
[2017-08-27] MEDS: CLINDAMYCIN 600 MG in DEXTROSE 5% 50 ML IV SCH ×2 (00:10→05:33)
[2017-08-27 00:12] VITALS: BP 115/73
--- NOTE | 2017-08-27 02:00 | NUR ---
ASLEEP. NO S/S OF ANY DISCOMFORT NOR PAIN NOTED.
--- NOTE | 2017-08-27 04:00 | NUR ---
REPOSITIONED FOR COMFORT. TURNED TO SIDES . CLEANED AND KEPT DRY. DRESSING ON THE SACRAL WOUND DRY AND CLEAN.
[2017-08-27 04:10] VITALS: BP 126/76
--- NOTE | 2017-08-27 05:30 | NUR ---
BLOOD WAS DRAWN THIS AM. WILL FOLLOW UP RESULTS.
[2017-08-27 06:44] LABS: BASOPHILS # (AUTO) 0.1 K/uL (0.00-0.22); BASOPHILS % (AUTO) 0.7 % (0.0-2.0); EOSINOPHILS # (AUTO) 0.1 K/uL (0-0.4); EOSINOPHILS % (AUTO) 0.6 % (0.0-4.0); HEMATOCRIT 38.1 % (36-48); HEMOGLOBIN 12.5 g/dL (12.0-16.0); LYMPHOCYTES # (AUTO) 0.9 K/uL (2.5-16.5); LYMPHOCYTES % (AUTO) 6.3 % (20.5-51.1); MEAN CORPUSCULAR HEMOGLOBIN 27 pg (27-31); MEAN CORPUSCULAR HGB CONC 33 g/dL (33-37); MEAN CORPUSCULAR VOLUME 83 fL (80-94); MONOCYTES # (AUTO) 0.7 K/uL (0.8-1.0); MONOCYTES % (AUTO) 4.7 % (1.7-9.3); NEUTROPHILS # (AUTO) 12.4 K/uL (1.8-7.7); NEUTROPHILS % (AUTO) 87.7 % (42.2-75.2); PLATELET COUNT (AUTO) 203 K/uL (140-450); RED BLOOD CELL COUNT(AUTO) 4.56 MIL/uL (4.20-5.40); RED CELL DISTRIBUTION WIDTH 15.5 % (11.6-13.7); WHITE BLOOD COUNT (AUTO) 14.2 K/uL (4.8-10.8)
[2017-08-27 06:55] LABS: CARBON DIOXIDE 27.3 mmol/L (21-32); CHLORIDE 107 mmol/L (98-107); CREATININE 0.7 mg/dL (0.6-1.3); GLUCOSE 105 mg/dL (74-106); POTASSIUM 4.3 mmol/L (3.5-5.1); SODIUM SERUM 142 mmol/L (136-145); UREA NITROGEN, BLOOD 19 mg/dL (7-18)
[2017-08-27 07:07] LABS: PHOSPHORUS 3.6 mg/dL (2.5-4.9)
--- NOTE | 2017-08-27 07:20 | NUR ---
ENDORSED PT IN STABLE CONDITION TO AM NURSE.
--- NOTE | 2017-08-27 07:25 | NUR ---
RECEIVED REPORT FROM PM NURSE, PT A/O X 4, PT DENIES ANY PAIN, PLAN OF CARE DISCUSSED WITH PT, PT UNDERSTANDS PLAN OF CARE, NO S/S OF ACUTE DISTRESS, IV PATENT AND INTACT, SAFETY PRECAUTIONS TAKEN, CALL LIGHT WITHIN REACH.
[2017-08-27 07:49] VITALS: BP 119/75
[2017-08-27] MEDS ORDERED: LEVOFLOXACIN 250 MG/D5 PREMIX 50 ML IV SCH (09:00)
[2017-08-27] MEDS: MULTIVITAMIN 1 TAB PO SCH (09:01)
[2017-08-27] MEDS: ASPIRIN 81 MG TAB.CHEW PO SCH (09:01)
[2017-08-27] MEDS: CLOPIDOGREL 75 MG TAB PO SCH (09:01)
[2017-08-27] MEDS: DOCUSATE SODIUM 100 MG GELCAP PO SCH ×2 (09:02→20:55)
[2017-08-27] MEDS: LACTOBACILLUS RHAMNOSUS GG 1 EACH CAP PO SCH (09:02)
[2017-08-27] MEDS: ASCORBIC ACID 500 MG TAB PO SCH ×2 (09:02→20:56)
[2017-08-27] MEDS: CARVEDILOL 3.125 MG TAB PO SCH ×2 (09:02→20:54)
[2017-08-27] MEDS: FERROUS SULFATE 325 MG TABEC PO SCH (09:02)
--- NOTE | 2017-08-27 09:16 | NUR ---
DUE MEDICATIONS GIVEN WITH EDUCATION, PT UNDERSTANDS TEACHING, PT TOLERATED WELL, WILL CONT TO MONITOR.
[2017-08-27] MEDS ORDERED: VANCOMYCIN PER PHARMACY MC PRN (10:05)
--- NOTE | 2017-08-27 10:56 | NUR ---
CALLED [facility] AND SPOKE WITH KEMI. SHE SAYS THEY CANNOT TAKE A PATIENT WITH A STAGE 3 DECUBITUS, ONLY STAGE 2. I SPOKE WITH MADIE, WOUND CARE NURSE. SHE VERIFIED THAT THE DECUBITUS IS STAGE 3. I CALLED THE SON, CHESTER ABOUT PLACEMENT AT SNF. HE SAID HE IS AGREEABLE TO [facility] AGAIN, SECOND WOULD BE [facility] UPON DISCHARGE.
--- NOTE | 2017-08-27 11:05 | NUR ---
PT RESTING IN BED ON RA, PT PRESENTS WITH NO S/S OF ACUTE DISTRESS, PT DENIES ANY PAIN AT THE TIME, CALL LIGHT WITHIN REACH, SAFETY PRECAUTIONS TAKEN, WILL CONT TO MONITOR.
[2017-08-27] MEDS: VANCOMYCIN 1GM/DEXT 5% PREMIX 200 ML IV SCH (11:42)
--- NOTE | 2017-08-27 11:48 | NUR ---
DUE MEDICATION GIVEN WITH EDUCATION, PT UNDERSTANDS TEACHING, PT TOLERATED WELL, WILL CONT TO MONITOR.
[2017-08-27 11:50] VITALS: BP 117/60
[2017-08-27] MEDS: THERAHONEY GEL 42.5 GM TP SCH (13:31)
[2017-08-27] MEDS: Z-GUARD PASTE TP SCH (13:31)
[2017-08-27] MEDS: HYDRAGUARD CREAM TP SCH (13:31)
--- NOTE | 2017-08-27 14:00 | NUR ---
PT RESTING IN BED ON RA, NO S/S OF ACUTE DISTRESS, WOUND DRESSING CHANGED, PT TURNED EVERY 2 HOURS, PT DENIES PAIN, CALL LIGHT WITHIN REACH, WILL CONT TO MONITOR.
--- NOTE | 2017-08-27 14:25 | NUR ---
FAXED INQUIRY TO [facility].
--- NOTE | 2017-08-27 15:11 | NUR ---
SPOKE WITH SON CHESTER AND INFORMED HIM I [place] [facility] AND WILL SEND [place]QUIRY TO [facility]. I GAVE HIM THE ADDRESS AND PHONE NUMBER TO [facility] . HE SAID HE WOULD BE IN TO SEE HIS MOTHER AND WILL TRY AND GO TO [facility].
[2017-08-27 15:57] VITALS: BP 116/64
--- NOTE | 2017-08-27 17:50 | NUR ---
PT SITTING IN BED ON RA, PT DENIES PAIN, NO S/S OF ACUTE DISTRESS, CALL LIGHT WITHIN REACH, WILL CONT TO MONITOR.
--- NOTE | 2017-08-27 19:15 | NUR ---
ENDORSED PLAN OF CARE TO NIGHT RN, PT REMAINS STABLE.
--- NOTE | 2017-08-27 19:20 | NUR ---
RECEIVED KPT FROM MYRA BELL /SAIRA RN PT AAOX1 DELAYED SPEECH S/P CVA, RT BODY SIDE WEAKNESS ON TELEMETRY CONTROLLED AFIB SACRAL WOUND DRESSING DRY AND INTACTT IV ON LEFT ARM INFUSING WELL TKO PT REPOSITIONED INITIAL ASSESSMETN DONE
[2017-08-27 20:00] VITALS: BP 112/58
[2017-08-27] MEDS: ATORVASTATIN 20 MG TAB PO SCH (20:55)
--- NOTE | 2017-08-27 21:00 | NUR ---
TYLENOL GIVEN FOR TEMP 100.8 AND WILL BE MONITORING PT CONTROLLED AFIB REPOSITIONED Q2H
[2017-08-28] VITALS: BP 108/48
--- NOTE | 2017-08-28 | NUR ---
SLEEPING WELL NO;T DISTRESS NOTED REPOSITIONED Q2H , CONTROLLED AFIB TEMP 98.0
--- NOTE | 2017-08-28 02:00 | NUR ---
PT AWAKE NOT SIGNS OF PAIN OR DISTRESS CONTROLLED AFIB REPOSITIONED Q2H
[2017-08-28 04:00] VITALS: BP 123/66
--- NOTE | 2017-08-28 04:00 | NUR ---
PT ON CLOSE MONITORING REPOSITIONED Q2H NOT DISTRESS NOTED ON TELEMETRY CONTROLLED AFIB
--- NOTE | 2017-08-28 06:11 | NUR ---
SPONGE BATH GIVEN LINEN CHANGED REPOSITIONED CONTROLLED AFIB NOT DISTRESS NOTED
[2017-08-28 06:46] LABS: HEMATOCRIT 35.8 % (36-48); HEMOGLOBIN 11.6 g/dL (12.0-16.0); MEAN CORPUSCULAR HEMOGLOBIN 27 pg (27-31); MEAN CORPUSCULAR HGB CONC 32 g/dL (33-37); MEAN CORPUSCULAR VOLUME 83 fL (80-94); PLATELET COUNT (AUTO) 163 K/uL (140-450); WHITE BLOOD COUNT (AUTO) 17.5 K/uL (4.8-10.8)
[2017-08-28 07:17] LABS: ANION GAP 12.4 (8-16); CARBON DIOXIDE 25.1 mmol/L (21-32); CHLORIDE 105 mmol/L (98-107); CREATININE 0.7 mg/dL (0.6-1.3); GLUCOSE 95 mg/dL (74-106); POTASSIUM 3.5 mmol/L (3.5-5.1); SODIUM SERUM 139 mmol/L (136-145); UREA NITROGEN, BLOOD 14 mg/dL (7-18)
[2017-08-28 07:40] LABS: EOSINOPHILS % (MANUAL) 1 % (0-4); LYMPHOCYTES % (MANUAL) 7 % (20-46); MONOCYTES % (MANUAL) 3 % (5-12)
--- NOTE | 2017-08-28 07:45 | NUR ---
RECEIVED REPORT FROM NIGHT RN, PT A/OX4, PLAN OF CARE DISCUSSED WITH PT, PT VERBALIZED UNDERSTANDING, PT DENIES PAIN, NO S/S OF ACUTE DISTRESS, ON ROOM AIR, CALL LIGHT WITHIN REACH, IV PATENT AND INTACT, SAFETY PRECAUTIONS TAKEN, WILL CONT TO MONITOR.
[2017-08-28 07:48] VITALS: BP 108/56
[2017-08-28] MEDS ORDERED: MAG SULF 2000 MG/WATER PREMIX 50 ML IV SCH ×2 (08:25→15:20)
[2017-08-28] MEDS: CARVEDILOL 3.125 MG TAB PO SCH ×3 (09:00→21:36)
[2017-08-28] MEDS: ASPIRIN 81 MG TAB.CHEW PO SCH (09:16)
[2017-08-28] MEDS: LACTOBACILLUS RHAMNOSUS GG 1 EACH CAP PO SCH (09:16)
[2017-08-28] MEDS: MULTIVITAMIN 1 TAB PO SCH (09:16)
[2017-08-28] MEDS: DOCUSATE SODIUM 100 MG GELCAP PO SCH ×2 (09:16→21:35)
[2017-08-28] MEDS: ASCORBIC ACID 500 MG TAB PO SCH ×2 (09:17→21:37)
[2017-08-28] MEDS: FERROUS SULFATE 325 MG TABEC PO SCH (09:17)
[2017-08-28] MEDS: POTASSIUM CHLORIDE 10 MEQ TABER PO SCH (09:17)
[2017-08-28] MEDS: CLOPIDOGREL 75 MG TAB PO SCH (09:17)
[2017-08-28] MEDS: MUPIROCIN 2% OINT 22 GM TUBE TP SCH (09:22)
--- NOTE | 2017-08-28 09:49 | NUR ---
DUE MEDICATIONS GIVE WITH EDUCATION, PT VERBALIZED UNDERSTANDING, PT TOLERATED WELL, WILL CONT TO MONITOR.
--- NOTE | 2017-08-28 10:30 | NUR ---
PT RESTING IN BED WATCHING TV ON RA, NO S/S OF ACUTE DISTRESS, PT DENIES PAIN, CALL LIGHT WITHIN REACH WILL CONT TO MONITOR.
[2017-08-28] MEDS: THERAHONEY GEL 42.5 GM TP SCH (12:54)
[2017-08-28] MEDS: HYDRAGUARD CREAM TP SCH (12:54)
[2017-08-28] MEDS: Z-GUARD PASTE TP SCH (12:54)
[2017-08-28] MEDS: VANCOMYCIN 1GM/DEXT 5% PREMIX 200 ML IV SCH (13:12)
[2017-08-28] MEDS ORDERED: Vancomycin Per Pharmacy MC (13:36)
[2017-08-28] MEDS ORDERED: POTA10TE30 PO (13:36)
[2017-08-28] MEDS ORDERED: Hydraguard TP (13:36)
[2017-08-28] MEDS ORDERED: Therahoney Gel TP ×2 (13:36)
[2017-08-28] MEDS ORDERED: LACT10CA PO (13:36)
[2017-08-28] MEDS ORDERED: BACTO TP (13:36)
[2017-08-28] MEDS ORDERED: ONDA2SOL45 IVP (13:36)
[2017-08-28] MEDS ORDERED: ZGUARD TP ×2 (13:36)
--- NOTE | 2017-08-28 13:45 | NUR ---
PT RESTING IN BED ON RA, NO S/S OF ACUTE DISTRESS, PT IN LOWEST POSITION, CALL LIGHT WITHIN REACH, WILL CONT TO MONITOR.
--- NOTE | 2017-08-28 14:14 | NUR ---
CM NOTE PER LIANE FROM [facility], UNABLE TO TAKE PATIENT D/T NO ISOLATION BEDS AVAILABLE.
[2017-08-28 15:55] VITALS: BP 103/64
--- NOTE | 2017-08-28 19:10 | NUR ---
ENDORSED PLAN OF CARE TO NIGHT RN, PT REMAINS STABLE
--- NOTE | 2017-08-28 19:11 | NUR ---
RECEIVED BEDSIDE REPORT FROM DAY SHIFT NURSE, PT STABLE, NO DISTRESS NOTED, AOX4, BEDREST, IV TO THE L FA 20G RUNNING NS @5ML/HR, DRESSING CLEAN DRY INTACT TO THE SACRAL. PT RESTING, CALL LIGHT WITHIN REACH. WILL CONTINUE TO MONITOR. Addendum: 08/28/17 at 1934 by Radha Perry RN ALL SAFETY PRECAUTION MET, INITIAL ASSESSMENT DONE.
--- NOTE | 2017-08-28 21:30 | NUR ---
DR BLANCA CAME AND EXAMINE THE PT BY BEDSIDE, WITH ORDERS. ORDERS NOTED AND WILL CARRY OUT.
[2017-08-28 21:36] VITALS: BP 118/74
--- NOTE | 2017-08-28 21:36 | NUR ---
DUE MEDICATION GIVEN, DRESSING SOILED AND CHANGED,HINA CARE DONE, PT TOLERATED WELL, NO DISTRESS NOTED, CALL LIGHT WITHIN REACH, WILL CONTINUE TO MONITOR.
[2017-08-28] MEDS: ATORVASTATIN 20 MG TAB PO SCH (21:37)
--- NOTE | 2017-08-28 23:55 | NUR ---
CHECKED ON PT, PT RESTING NO DISTRESS NOTED, DRESSING INTACT, V/S TAKEN, PT STABLE, CALL LIGHT WITHIN REACH, WILL CONTINUE TO MONITOR.
[2017-08-29] VITALS: BP 114/66
--- NOTE | 2017-08-29 02:00 | NUR ---
MADE ROUNDS. PT AWAKE. NO S/S OF ANY DISCOMFORT NOTED. WILL CONTINUE TO MONITOR.
--- NOTE | 2017-08-29 04:30 | NUR ---
OBTAINED URINE SAMPLE VIA STRAIGHT CATH, PT TOLERATED WELL, 300 ML URINE OBTAINED.
[2017-08-29] MEDS ORDERED: PIPERACILLIN/TAZOBACTAM 3.375 GM VIAL IV ONE (04:38)
--- NOTE | 2017-08-29 05:00 | NUR ---
L FA IV SITE INFILTRATED, INSERTED A NEW IV SITE ON THE L FA, OLD IV TAKEN OUT, CATH INTACT. NEW IV DRESSING CLEAN DRY INTACT, IV PATENT, INFUSING WELL. PT RESTING NO DISTRESS NOTED, CALL LIGHT WITHIN REACH.
[2017-08-29] MEDS: PIPER/TAZO 3.375GM/D5W PREMIX 50 ML IV SCH ×3 (05:01→20:28)
[2017-08-29 06:21] LABS: APPEARANCE,URINE TURBID (CLEAR); BILIRUBIN,URINE NEGATIVE (NEGATIVE); BLOOD, URINE 3+ (NEGATIVE); COLOR,URINE YELLOW (YELLOW); LEUKOCYTE ESTERASE ,URINE 2+ (NEGATIVE); NITRITE, URINE NEGATIVE (NEGATIVE); PH,URINE 5.5 (5.0-9.0); UGLUCOSE NEGATIVE (NEGATIVE)
[2017-08-29 06:43] LABS: BASOPHILS # (AUTO) 0.1 K/uL (0.00-0.22); BASOPHILS % (AUTO) 0.6 % (0.0-2.0); EOSINOPHILS # (AUTO) 0.4 K/uL (0-0.4); EOSINOPHILS % (AUTO) 2.6 % (0.0-4.0); HEMATOCRIT 34.3 % (36-48); HEMOGLOBIN 11.3 g/dL (12.0-16.0); LYMPHOCYTES # (AUTO) 0.9 K/uL (2.5-16.5); LYMPHOCYTES % (AUTO) 6.5 % (20.5-51.1); MEAN CORPUSCULAR HEMOGLOBIN 27 pg (27-31); MEAN CORPUSCULAR HGB CONC 33 g/dL (33-37); MEAN CORPUSCULAR VOLUME 83 fL (80-94); MONOCYTES # (AUTO) 0.8 K/uL (0.8-1.0); MONOCYTES % (AUTO) 5.7 % (1.7-9.3); NEUTROPHILS # (AUTO) 11.9 K/uL (1.8-7.7); NEUTROPHILS % (AUTO) 84.6 % (42.2-75.2); PLATELET COUNT (AUTO) 216 K/uL (140-450); RED BLOOD CELL COUNT(AUTO) 4.15 MIL/uL (4.20-5.40); RED CELL DISTRIBUTION WIDTH 16.1 % (11.6-13.7)
[2017-08-29 06:50] LABS: ANION GAP 12.1 (8-16); CARBON DIOXIDE 24.7 mmol/L (21-32); CHLORIDE 104 mmol/L (98-107); CREATININE 0.7 mg/dL (0.6-1.3); GLUCOSE 115 mg/dL (74-106); POTASSIUM 3.8 mmol/L (3.5-5.1); SODIUM SERUM 137 mmol/L (136-145); UREA NITROGEN, BLOOD 14 mg/dL (7-18)
--- NOTE | 2017-08-29 07:15 | NUR ---
GAVE BEDSIDE REPORT TO DAY SHIFT NURSE, PT STABLE NO DISTRESS NOTED, CALL LIGHT WITHIN REACH.
--- NOTE | 2017-08-29 07:16 | NUR ---
RECEIVED REPORT FROM THE MATERIAL ATTENDANT NURSE AT BEDSIDE FOR CONTINUITY OF CARE. PT IS AWAKE AND ORIENTED. INTRODUCED MYSELF AND UPDATED THE BOARD. PT IS MS. PT IS BEDREST, INCONTINENT. PT HAS A STAGE 3 SACRAL WOUND, DRESSING WAS DONE YESTERDAY PER MATERIAL ATTENDANT NURSE. TOOK PICTURES, PER MATERIAL ATTENDANT NURSE. DRESSING IS ON, DRY AND INTACT AT THIS TIME. WILL DO DRESSING CHANGE LATER ON TODAY. LAST BM WAS THIS MORNING. IV ON L FA 20G NS 100ML INFUSING. LABS ARE UNREMARKABLE. WBC IS 14.1 ON A DOWN TREND. PT IS ON VANCO AND ZOSYN. VS WITHIN NORMAL RANGE. DENIES PAIN. WILL CONTINUE TO MONITOR PT.
[2017-08-29 07:24] LABS: WHITE BLOOD COUNT (AUTO) 14.1 K/uL (4.8-10.8)
[2017-08-29 08:00] VITALS: BP 102/61
[2017-08-29] MEDS: POTASSIUM CHLORIDE 10 MEQ TABER PO SCH (08:49)
[2017-08-29] MEDS: MULTIVITAMIN 1 TAB PO SCH (08:49)
[2017-08-29] MEDS: LACTOBACILLUS RHAMNOSUS GG 1 EACH CAP PO SCH (08:49)
[2017-08-29] MEDS: DOCUSATE SODIUM 100 MG GELCAP PO SCH ×2 (08:49→20:29)
[2017-08-29] MEDS: CLOPIDOGREL 75 MG TAB PO SCH (08:49)
[2017-08-29] MEDS: ASPIRIN 81 MG TAB.CHEW PO SCH (08:49)
[2017-08-29] MEDS: ASCORBIC ACID 500 MG TAB PO SCH ×2 (08:49→20:29)
[2017-08-29] MEDS: FERROUS SULFATE 325 MG TABEC PO SCH (08:50)
[2017-08-29] MEDS: CARVEDILOL 3.125 MG TAB PO SCH ×2 (08:50→20:29)
[2017-08-29] MEDS: MUPIROCIN 2% OINT 22 GM TUBE TP SCH (08:51)
--- NOTE | 2017-08-29 09:01 | NUR ---
ADMINISTERED MORNING MEDS. PT TOLERATED WELL. PT WANTED TO HAVE THE TV ON. WILL CONTINUE TO MONITOR PT.
[2017-08-29 09:24] LABS: RBC,URINE 11-20 (MOD) /HPF (0-5)
[2017-08-29 09:25] LABS: YEAST,URINE Few /HPF (None Seen)
[2017-08-29] MEDS: HYDRAGUARD CREAM TP SCH (09:30)
[2017-08-29] MEDS: THERAHONEY GEL 42.5 GM TP SCH (09:30)
[2017-08-29] MEDS: Z-GUARD PASTE TP SCH (09:30)
--- NOTE | 2017-08-29 09:30 | NUR ---
JIG FILLER CHANGING PATIENT AND REPOSITIONING HER. DID WOUND CARE. PT TOLERATED WELL.
--- NOTE | 2017-08-29 11:10 | NUR ---
WAITING ON THE RESULTS TO VANCO [facility]. LORRAINE CALLED. RESULTS TOO LOW. WILL NEED TO REDOSE THE VANCO. WILL BRING UP A NEW BAG FOR 1400. WILL WAIT ON PHARMACY.
--- NOTE | 2017-08-29 12:05 | NUR ---
SPOKE WITH SON, CHESTER AND INFORMED HIM THAT [facility] CANNOT TAKE THIS PATIENT DUE TO ISOLATION. I CALLED ZAK FROM [facility], WAITING CALL BACK. I TOLD CHESTER THAT I WILL BE INQUIRING TO OTHER SNF'S IN THE AREA, AND HE WAS FINE WITH THAT. TOLD HIM, SOMETIMES THE SNF'S DON'T HAVE ISOLATION ROOMS. SPOKE WITH DORCAS FROM [facility]. THEY DO HAVE A FEMALE ISOLATION BED. WILL FAX INQUIRY.
--- NOTE | 2017-08-29 12:23 | NUR ---
ZAK FROM [facility] CALLED. UNABLE TO TAKE PATIENT, NO ISOLCATION BED.
[2017-08-29] MEDS: NACL 0.9% 1,000 ML IV SCH ×2 (12:33→17:56)
--- NOTE | 2017-08-29 13:09 | NUR ---
FAXED INQUIRY TO [facility]. GWYN BELL CM DIRECTOR RECEIVED A TEST FROM DORCAS. [facility] CAN TAKE THE PATIENT. SHE CAN GO TO ROOM [address] Ishmael STILL WILL FOLLOW PHONE FOR [facility], [phone]. PLAN DISCHARGE FRIDAY. LAURI BRIGGS AWARE. Addendum: 08/29/17 at 1521 by Eva Bowie GWYN RECEIVED A TEXT, NOT TEST
[2017-08-29] MEDS: VANCOMYCIN 1,250 MG in DEXTROSE 5% 250 ML IV SCH (13:26)
--- NOTE | 2017-08-29 15:21 | NUR ---
DID CALL THE SON CHESTER EARLIER AND INFORMED HIM THAT THE PATIENT WAS ACCEPTED AT [facility]. HE ASKED FOR THE ADDRESS TO BE E MAILED TO HIM. GWYN BELLMEDICAL SONOGRAPHER DIRECTOR E MAILED THE ADDRESS TO HIM. SON AWARE PATIENT MAY BE TRANSFERED ON FRIDAY.
--- NOTE | 2017-08-29 15:36 | NUR ---
PT SLEEPING SOUNDLY. NO SIGNS OF DISTRESS. WILL CONTINUE TO MONITOR PT.
[2017-08-29 16:00] VITALS: BP 109/67
--- NOTE | 2017-08-29 16:41 | NUR ---
OLD IV SITE IS LEAKING. REMOVED OLD IV. STARTED A NEW IV ON R AC 22G. PATENT AND FLUSHING WELL. PT TOLERATED WELL.
--- NOTE | 2017-08-29 19:21 | NUR ---
ENDORSED PT TO THE FOOD SERVICE ORDER CLERK NURSE AT BEDSIDE FOR CONTINUITY OF CARE. PT IS AWAKE AND ALERT. IN STABLE CONDITION.
--- NOTE | 2017-08-29 19:22 | NUR ---
RECEIVED REPORT FROM DAY SHIFT RN AT PT BEDSIDE FOR CONTINUITY OF CARE. PT IS A/OX4, ON ROOM AIR, NONVERBAL. PT HAS A RIGHT AC IV 22G INFUSING NS@75ML/HR. 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 SACRAL PRESSURE ULCER PRESENT, AND PT IS ON CONTACT PRECAUTIONS. SAFETY PRECAUTIONS IN PLACE. UPDATED BOARD. DISCUSSED PLAN OF CARE WITH PT, PT NODDED IN AGREEMENT. VITAL SIGNS WITHIN NORMAL LIMITS. PT IN STABLE CONDITION, NO SIGNS OF DISTRESS NOTED. BED IN LOW POSITION, CALL LIGHT WITHIN REACH. WILL CONTINUE TO MONITOR.
[2017-08-29] MEDS: ATORVASTATIN 20 MG TAB PO SCH (20:29)
--- NOTE | 2017-08-29 20:35 | NUR ---
ADMINISTERED SCHEDULED MEDICATIONS, PT TOLERATED WELL. CLEANED, CHANGED, AND REPOSITIONED PT WITH THE HELP OF ASAEL PIERSON, PT TOLERATED WELL. PT IN STABLE CONDITION, NO SIGNS OF DISTRESS NOTED. BED IN LOW POSITION, CALL LIGHT WITHIN REACH. WILL CONTINUE TO MONITOR.
--- NOTE | 2017-08-29 23:00 | NUR ---
CLEANED, CHANGED, AND REPOSITIONED PT WITH HELP FROM ETHYLBENZENE CRACKING SUPERVISOR, PT TOLERATED WELL. PT IN STABLE CONDITION, NO SIGNS OF DISTRESS NOTED. BED IN LOW POSITION, CALL LIGHT WITHIN REACH. WILL CONTINUE TO MONITOR.
[2017-08-29 23:43] VITALS: BP 106/60
--- NOTE | 2017-08-30 01:15 | NUR ---
CLEANED, CHANGED, AND REPOSITIONED PT WITH HELP FROM VACUUM CLEANER REPAIRER, PT TOLERATED WELL. PT IN STABLE CONDITION, NO SIGNS OF DISTRESS NOTED. BED IN LOW POSITION, CALL LIGHT WITHIN REACH. WILL CONTINUE TO MONITOR.
[2017-08-30] MEDS: PIPER/TAZO 3.375GM/D5W PREMIX 50 ML IV SCH ×3 (05:01→21:01)
[2017-08-30 05:50] LABS: ANION GAP 10.8 (8-16); CHLORIDE 109 mmol/L (98-107); CREATININE 0.7 mg/dL (0.6-1.3); GLUCOSE 96 mg/dL (74-106); POTASSIUM 3.8 mmol/L (3.5-5.1); SODIUM SERUM 141 mmol/L (136-145); UREA NITROGEN, BLOOD 13 mg/dL (7-18)
[2017-08-30 06:04] LABS: HEMATOCRIT 32.7 % (36-48); HEMOGLOBIN 10.4 g/dL (12.0-16.0); MEAN CORPUSCULAR HEMOGLOBIN 27 pg (27-31); MEAN CORPUSCULAR HGB CONC 32 g/dL (33-37); MEAN CORPUSCULAR VOLUME 83 fL (80-94); PLATELET COUNT (AUTO) 159 K/uL (140-450); RED BLOOD CELL COUNT(AUTO) 3.94 MIL/uL (4.20-5.40); RED CELL DISTRIBUTION WIDTH 16.1 % (11.6-13.7); WHITE BLOOD COUNT (AUTO) 9.2 K/uL (4.8-10.8)
[2017-08-30 06:12] LABS: EOSINOPHILS % (MANUAL) 5 % (0-4); LYMPHOCYTES % (MANUAL) 14 % (20-46); MONOCYTES % (MANUAL) 2 % (5-12)
[2017-08-30] MEDS: NACL 0.9% 1,000 ML IV SCH ×2 (06:51→21:00)
--- NOTE | 2017-08-30 07:15 | NUR ---
RECEIVED ENDORSEMENT FROM BILLIARD TABLE ASSEMBLER NURSE. PATIENT IS STABLE, RESPIRATION IS EVEN, UNLABOR. SKIN DRY AND WARM TO THE TOUCH. CALL LIGHT WITHIN REACH. WILL CONTINUE TO MONITOR
--- NOTE | 2017-08-30 07:21 | NUR ---
ENDORSED PT TO DAY SHIFT RN FOR CONTINUITY OF CARE. PT IN STABLE CONDITION.
[2017-08-30 08:00] VITALS: BP 95/57
--- NOTE | 2017-08-30 08:00 | NUR ---
PATIENT AWAKE, ALERT, ORIENTED X 4. PUPIL EQUAL, REACTIVE TO LIGHT. RESPIRATION EVEN, LUNGS SOUND CLEAR THROUGHOUT. CARDIAC WITH S1, S2 PRESENT. BOWEL SOUND ACTIVE 4 QUADRANTS. SKIN: PRESSURE ULCER STAGE 3 ON SACRUM AREA. IV 22G ON RIGHT AC WITH NS @ 75, INTACT AND PATENT. PATIENT OF PAIN ON LEFT ARM BUT REFUSED TO TAKE PAIN MEDICATION. CALL LIGHT WITHIN REACH. WILL CONTINUE TO MONITOR
[2017-08-30] MEDS: POTASSIUM CHLORIDE 10 MEQ TABER PO SCH (09:00)
[2017-08-30] MEDS: MULTIVITAMIN 1 TAB PO SCH (09:00)
[2017-08-30] MEDS: LACTOBACILLUS RHAMNOSUS GG 1 EACH CAP PO SCH (09:01)
[2017-08-30] MEDS: DOCUSATE SODIUM 100 MG GELCAP PO SCH ×2 (09:01→21:01)
[2017-08-30] MEDS: ASCORBIC ACID 500 MG TAB PO SCH ×2 (09:01→21:02)
[2017-08-30] MEDS: CLOPIDOGREL 75 MG TAB PO SCH (09:02)
[2017-08-30] MEDS: CARVEDILOL 3.125 MG TAB PO SCH ×2 (09:02→21:01)
[2017-08-30] MEDS: FERROUS SULFATE 325 MG TABEC PO SCH (09:03)
[2017-08-30] MEDS: ASPIRIN 81 MG TAB.CHEW PO SCH (09:03)
--- NOTE | 2017-08-30 09:10 | NUR ---
DUE MEDS GIVEN, PT JAYRO PILLS WELL ONE BY ONE, NO SWALLOWING PROBLEMS NOTED, BED BATH GIVEN, PERICARE DONE, SOILED SACRAL WOUND DRESSING CHANGED. PT JAYRO WELL.
--- NOTE | 2017-08-30 09:14 | NUR ---
08/30/17 RD FOLLOW UP COMPLETED PLEASE REFER TO NUTRITION PROGRESS NOTE UNDER CARE ACTIVITY FOR ESTIMATED NUTRITION NEEDS. RD RECOMMENDATIONS: 1. CONTINUE CARDIAC, MECHANICAL SOFT DIET TOLERATED PER MD 2. RD TO FOLLOW-UP 3-5 DAYS, MODERATE RISK FLAKO MEDRANO MS, RDN
[2017-08-30] MEDS: MUPIROCIN 2% OINT 22 GM TUBE TP SCH (09:40)
--- NOTE | 2017-08-30 12:00 | NUR ---
PATIENT IS AWAKE, ALERT, NO DISTRESS NOTED. NO COMPLAIN OF PAIN AT THIS TIME. RESPIRATION IS EVEN, UNLABOR. CALL LIGHT WITHIN REACH. WILL CONTINUE TO MONITOR
[2017-08-30] MEDS: HYDRAGUARD CREAM TP SCH (12:28)
[2017-08-30] MEDS: THERAHONEY GEL 42.5 GM TP SCH (12:29)
[2017-08-30] MEDS: Z-GUARD PASTE TP SCH (12:29)
--- NOTE | 2017-08-30 13:13 | NUR ---
WAS NOTIFIED WITH ABNORMAL MAG, CALCIUM LEVEL. WILL CONTINUE TO MONITOR
[2017-08-30] MEDS: traMADol 50 MG TAB PO PRN (13:54)
[2017-08-30] MEDS: VANCOMYCIN 1,250 MG in DEXTROSE 5% 250 ML IV SCH (14:02)
--- NOTE | 2017-08-30 14:09 | NUR ---
FAMILY MEMBERS AND MDS WERE AT THE BEDSIDE. PATIENT IS STABLE, NO DISTRESS NOTED. MED WAS GIVEN PER ORDER. CALL LIGHT WITHIN REACH. WILL CONTINUE TO MONITOR
[2017-08-30] MEDS ORDERED: MAG SULF 2000 MG/WATER PREMIX 50 ML IV SCH (15:00)
--- NOTE | 2017-08-30 15:10 | NUR ---
DRESSING WAS CHANGED. WOUND WAS CLEANED. MEDICATION WAS APPLIED PER ORDER. PATIENT TOLERATED WELL. CALL LIGHT WITHIN REACH. WILL CONTINUE TO MONITOR
[2017-08-30 16:00] VITALS: BP 105/68
--- NOTE | 2017-08-30 16:15 | NUR ---
PATIENT IS ASLEEP COMFORTABLY, NO DISTRESS NOTED. RESPIRATION IS EVEN, UNLABOR. CALL LIGHT WITHIN REACH. WILL CONTINUE TO MONITOR.
--- NOTE | 2017-08-30 18:03 | NUR ---
PATIENT IS SLEEPING COMFORTABLY. PATIENT IS STABLE, NO DISTRESS NOTED. RESPIRATION IS EVEN, UNLABOR. NO COMPLAIN OF PAIN AT THIS TIME. IV INTACT, PATENT. CALL LIGHT WITHIN REACH. WILL CONTINUE TO MONITOR
--- NOTE | 2017-08-30 19:24 | NUR ---
ENDORSEMENT GIVEN TO PSYCHIATRIC ARNP NURSE. PATIENT IS STABLE, NO DISTRESS NOTED.
--- NOTE | 2017-08-30 19:25 | NUR ---
RECEIVED BEDSIDE REPORT FROM DAY SHIFT NURSE, PT RESTING, NO DISTRESS NOTED, AOX4, REPORTED HAVING NO PAIN, IV TO R AC 22G RUNNING NS @75 ML/HR, INFUSING WELL, DRESSING ON SACRAL DRY AND INTACT, ALL SAFETY PRECAUTION MET, INITIAL ASSESSMENT DONE. CALL LIGHT WITHIN REACH, WILL CONTINUE TO MONITOR.
[2017-08-30 21:01] VITALS: BP 103/63
[2017-08-30] MEDS: ATORVASTATIN 20 MG TAB PO SCH (21:01)
--- NOTE | 2017-08-30 21:01 | NUR ---
DUE MEDICATION GIVEN, PT TOLERATED WELL, NO DISTRESS NOTED, CALL LIGHT WITHIN REACH, WILL CONTINUE TO MONITOR.
--- NOTE | 2017-08-30 22:45 | NUR ---
REPOSITION AND CLEAN PT, PT TOLERATED WELL, NO DISTRESS NOTED, DRESSING CLEAN DRY AND INTACT, CALL LIGHT WITHIN REACH, WILL CONTINUE TO MONITOR.
[2017-08-31] VITALS: BP 97/58
--- NOTE | 2017-08-31 01:05 | NUR ---
CHECKED ON PT, PT SLEEPING, NO DISTRESS NOTED, CALL LIGHT WITHIN REACH. WILL CONTINUE TO MONITOR.
[2017-08-31] MEDS: NACL 0.9% 1,000 ML IV SCH ×2 (01:30→10:20)
--- NOTE | 2017-08-31 03:20 | NUR ---
CHECKED ON PT, PT SLEEPING, NO DISTRESS NOTED, CALL LIGHT WITHIN REACH, WILL CONTINUE TO MONITOR.
[2017-08-31] MEDS: PIPER/TAZO 3.375GM/D5W PREMIX 50 ML IV SCH ×2 (05:08→12:07)
--- NOTE | 2017-08-31 05:08 | NUR ---
DUE MEDICATION ADMINISTERED, PT TOLERATED WELL, NO DISTRESS NOTED, CALL LIGHT WITHIN REACH, WILL CONTINUE TO MONITOR.
[2017-08-31 06:26] LABS: HEMATOCRIT 33.5 % (36-48); HEMOGLOBIN 10.3 g/dL (12.0-16.0); MEAN CORPUSCULAR HEMOGLOBIN 26 pg (27-31); MEAN CORPUSCULAR HGB CONC 31 g/dL (33-37); MEAN CORPUSCULAR VOLUME 84 fL (80-94); PLATELET COUNT (AUTO) 189 K/uL (140-450); RED BLOOD CELL COUNT(AUTO) 4.01 MIL/uL (4.20-5.40); RED CELL DISTRIBUTION WIDTH 15.9 % (11.6-13.7); WHITE BLOOD COUNT (AUTO) 8.1 K/uL (4.8-10.8)
[2017-08-31] MEDS ORDERED: DOCU-299 PO (06:27)
[2017-08-31] MEDS ORDERED: ACET-1182 PO (06:28)
[2017-08-31 06:37] LABS: ANION GAP 13.1 (8-16); CARBON DIOXIDE 24.9 mmol/L (21-32); CHLORIDE 109 mmol/L (98-107); CREATININE 0.7 mg/dL (0.6-1.3); GLUCOSE 96 mg/dL (74-106); SODIUM SERUM 143 mmol/L (136-145); UREA NITROGEN, BLOOD 12 mg/dL (7-18)
--- NOTE | 2017-08-31 07:10 | NUR ---
GAVE BEDSIDE REPORT TO DAY SHIFT NURSE, PT STABLE NO DISTRESS NOTED, CALL LIGHT WITHIN REACH.
--- NOTE | 2017-08-31 07:20 | NUR ---
ENDORSEMENT RECEIVED FROM STARCH CRAB NURSE. PATIENT IS SLEEPING, NO DISTRESS NOTED. RESPIRATION IS EVEN, UNLABOR. SKIN DRY AND WARM. CALL LIGHT WITHIN REACH. WILL CONTINUE TO MONITOR
[2017-08-31 07:23] LABS: BASOPHILS % (MANUAL) 0 % (0-2); EOSINOPHILS % (MANUAL) 4 % (0-4); LYMPHOCYTES % (MANUAL) 16 % (20-46); MONOCYTES % (MANUAL) 4 % (5-12)
[2017-08-31 08:00] VITALS: BP 112/68
--- NOTE | 2017-08-31 08:00 | NUR ---
PATIENT IS AWAKE, ALERT, ORIENTED X 2. PUPILS EQUAL, REACTIVE TO LIGHT. RESPIRATION EVEN, LUNGS SOUND CLEAR THROUGHOUT. CARDIAC WITH S1, S2 PRESENT. BOWEL SOUNDS ACTIVE 4 QUADRANTS. PRESSURE ULCER STAGE 3 IN SACRUM AREA, SKIN OTHERWISE DRY AND WARM TO THE TOUCH. PITTING EDEMA +2 ON BILATERAL FEET. IV 22G ON LEFT AC WITH NS @ 75ML/HR, INTACT AND PATENT. NO COMPLAIN OF PAIN AT THIS TIME. CALL LIGHT WITHIN REACH. WILL CONTINUE TO MONITOR
[2017-08-31] MEDS: LACTOBACILLUS RHAMNOSUS GG 1 EACH CAP PO SCH (09:00)
[2017-08-31] MEDS: FERROUS SULFATE 325 MG TABEC PO SCH (09:01)
[2017-08-31] MEDS: ASCORBIC ACID 500 MG TAB PO SCH (09:01)
[2017-08-31] MEDS: POTASSIUM CHLORIDE 10 MEQ TABER PO SCH (09:01)
[2017-08-31] MEDS: CARVEDILOL 3.125 MG TAB PO SCH (09:01)
[2017-08-31] MEDS: CLOPIDOGREL 75 MG TAB PO SCH (09:01)
[2017-08-31] MEDS: ASPIRIN 81 MG TAB.CHEW PO SCH (09:02)
[2017-08-31] MEDS: DOCUSATE SODIUM 100 MG GELCAP PO SCH (09:02)
[2017-08-31] MEDS: MULTIVITAMIN 1 TAB PO SCH (09:02)
[2017-08-31] MEDS: MUPIROCIN 2% OINT 22 GM TUBE TP SCH (09:20)
--- NOTE | 2017-08-31 10:15 | NUR ---
PATIENT IS ASLEEP COMFORTABLY, NO DISTRESS NOTED. NO COMPLAIN OF PAIN AT THIS TIME. RESPIRATION EVEN, UNLABOR. CALL LIGHT WITHIN REACH. WILL CONTINUE TO MONITOR
--- NOTE | 2017-08-31 12:11 | NUR ---
PATIENT IS EATING LUNCH. PIZZA DELIVERY AT BEDSIDE. RESPIRATION EVEN. NO DISTRESS NOTED. NO COMPLAIN OF PAIN AT THIS TIME. ANTIBIOTIC WAS HUNG PER ORDER. CALL LIGHT WITHIN REACH. WILL CONTINUE TO ORDER
[2017-08-31] MEDS: traMADol 50 MG TAB PO PRN (13:16)
[2017-08-31] MEDS: HYDRAGUARD CREAM TP SCH (13:21)
[2017-08-31] MEDS: THERAHONEY GEL 42.5 GM TP SCH (13:22)
[2017-08-31] MEDS: Z-GUARD PASTE TP SCH (13:22)
[2017-08-31] MEDS: VANCOMYCIN 1,250 MG in DEXTROSE 5% 250 ML IV SCH (14:00)
--- NOTE | 2017-08-31 14:30 | NUR ---
PATIENT IS AWAKE, ALERT. RESPIRATION IS EVEN, NO DISTRESS NOTED. CALL LIGHT WITHIN REACH. WILL CONTINUE TO MONITOR
--- NOTE | 2017-08-31 15:01 | NUR ---
CALLED MD AND GAVE UPDATE WITH PATIENT'S CURRENT CONDITION. CONTINUE WITH THE DISCHARGE. Addendum: 08/31/17 at 1533 by Anju Galindo RN DISREGARD ABOVE NOTE. CHARTED WRONG PATIENT
--- NOTE | 2017-08-31 15:10 | NUR ---
CALLED AND GAVE REPORT TO ALEX BELL AT [facility]. TRANSPORTATION WILL BE ARRANGED FOR THE PATIENT. Addendum: 08/31/17 at 1533 by Anju Galindo RN DISREGARD ABOVE NOTE. CHARTED WRONG PATIENT
[2017-08-31 16:00] VITALS: BP 108/65
--- NOTE | 2017-08-31 16:56 | NUR ---
REPORT GIVEN TO SUYAPA AT [facility]. GOWN AND DIAPER WERE CHANGED. PATIENT IS STABLE. NO DISTRESS NOTED. NO COMPLAIN OF PAIN AT THIS TIME. IV WAS REMOVED WITH CATHETER INTACT. PATIENT TOLERATED WELL. DISCHARGE PAPERWORKS WERE DONE.
--- NOTE | 2017-08-31 17:27 | NUR ---
EMT AT BEDSIDE. REPORT GIVEN. MEDICAL RECORD PROVIDED. PATIENT IS STABLE. TRANSFERRING TO [facility] AT THIS TIME. FAMILY WAS NOTIFIED.
== END 2017-08-31 17:27 | DRG 673 ==
LOC: MED 23:31 → MTU 08-24 01:05
PROVIDERS: ADMIT Student in an Organized Health Care Education/Training Program; ATTEND Student in an Organized Health Care Education/Training Program
PROC: 0JB70ZZ Excision of Back Subcutaneous Tissue and Fascia, Open Approach (ICD-10-PCS; principal; 2017-08-26)
DX: N39.0 Urinary tract infection, site not specified (principal); I50.43 Acute on chronic combined systolic (congestive) and diastolic (congestive) heart failure; N17.0 Acute kidney failure with tubular necrosis; J69.0 Pneumonitis due to inhalation of food and vomit; E43 Unspecified severe protein-calorie malnutrition; G93.41 Metabolic encephalopathy; R78.81 Bacteremia; B95.62 Methicillin resistant Staphylococcus aureus infection as the cause of diseases classified elsewhere; L89.153 Pressure ulcer of sacral region, stage 3; D68.59 Other primary thrombophilia; I69.351 Hemiplegia and hemiparesis following cerebral infarction affecting right dominant side; I48.2 Chronic atrial fibrillation; I08.3 Combined rheumatic disorders of mitral, aortic and tricuspid valves; E83.42 Hypomagnesemia; E11.622 Type 2 diabetes mellitus with other skin ulcer; I11.0 Hypertensive heart disease with heart failure; E78.5 Hyperlipidemia, unspecified; E02 Subclinical iodine-deficiency hypothyroidism; Z66 Do not resuscitate; I25.10 Atherosclerotic heart disease of native coronary artery without angina pectoris; E78.00 Pure hypercholesterolemia, unspecified; M19.90 Unspecified osteoarthritis, unspecified site; E87.6 Hypokalemia; D64.9 Anemia, unspecified; E11.65 Type 2 diabetes mellitus with hyperglycemia; Z79.02 Long term (current) use of antithrombotics/antiplatelets; Z79.82 Long term (current) use of aspirin; Z79.899 Other long term (current) drug therapy; Z74.01 Bed confinement status; Z95.5 Presence of coronary angioplasty implant and graft; Z22.39 Carrier of other specified bacterial diseases
CPT/HCPCS: 36415; 71010; 73020; 73501; 80048; 80053; 80202; 81001; 82150; 83036; 83605; 83690; 83735; 83880; 84100; 84439; 84443; 84484; 85025; 85610; 85730; 87040; 87070; 87077; 87081; 87086; 87186; 93005; 93925; 93970; 96361; 96365; 96375; 99285; C1758; J0696; J1170; J1940; J1956; J2001; J2405; J2543; J3370; J3475; J3490; J7030; J7060; Q0092